=== PATIENT | female | born 1955 | race Caucasian/White ===

== ENCOUNTER 2018-10-04 20:52 | Observation (INO) ==
--- NOTE | 2018-10-04 21:43 | History & Physical Report ---
Date of Service October 04, 2018 Assessment & Plan (1) Perimenopausal menorrhagia: recheck hemoglobin since it has been several hours since her last one was drawn. Present on Admission?: Yes (2) Enlarged uterus: check pelvic ultrasound to assess endometrial lining & uterus for fibroids or polyps.. History of Present Illness Primary Care Provider: NO PCP Patient is a 62 yo white female who presents with a 4 day history of vaginal bleeding that was heavy to start then started to pass golf ball size clots. She was also having cramping when she passed the clots as well. She was seen at [facility] ER but they have no dandy tender or utrasound services after 5pm and even though [facility] was closer, they apparently had no beds and she was sent to [facility] ER. She had a hemoglobin done at [facility] that was 10.9 which was done about 4pm today. . She has had some lightheadedness today & nausea with the cramps. She thinks she went through menopause about 10 years ago but also notes bleeding several times a year since then. usually the bleeds were light but lasted 3 weeks. She has been having these kind of bleeds for several months in the fall but no bleeding since June. 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 had heavy periods with clotting as her usual menses. was on Ortho-novum for the bleeding & cramps. Does not recall ever having an ultrasound for evaluation of her cramps & bleeding. not sexually active for at least 15 years. had chlamydia treated once about 20 years ago. Allergies Allergy/AdvReac Type Severity Reaction Status Date / Time codeine Allergy Tachycardia Verified 10/05/18 00:21 Iodinated Contrast- Oral and Allergy Swelling Verified 10/05/18 00:21 IV Dye of Lip/Tongue/Throat loratadine [From Claritin] Allergy Anaphylaxis Verified 10/05/18 00:21 Patient History Medical History Diabetes Hypertension Social History Feels Safe at Home: Yes Smoking Status: Current every day smoker Review of Systems All systems reviewed & are unremarkable except as noted in HPI & below Physical Exam Vital Signs (Past 24 Hours): Last Vital Signs Temp 37.3 C 10/04/18 21:12 Pulse 101 H 10/04/18 21:12 Resp 16 10/04/18 21:12 BP 186/96 H 10/04/18 21:12 Pulse Ox 95 10/04/18 21:12 Constitutional: WD/WN, vitals as above Respiratory: normal respiratory effort, lungs clear to auscultation Cardiovascular: RRR, no murmur, no edema Gastrointestinal (Abdomen): Inspection/Auscultation: abdomen normal to inspection Percussion/Palpation: + abdomen tender (suprapubic area) and abdomen soft Genitourinary: no vaginal lesions, no adnexal mass normal external appearance Speculum/Bimanual Exam: normal appearance of the cervix, + uterus enlarged (14 weeks size) and + uterus tender
[2018-10-04 22:54] LABS: Basophils # (auto) 0.02 K/uL (0-0.2); Basophils % (auto) 0.1 %; Eosinophils # (auto) 0.05 K/uL (0-0.5); Eosinophils % (auto) 0.2 %; Hematocrit (blood only) 30.4 % (37-47); Immature Granulocytes % (auto) 0.4 %; Lymphocytes # (auto) 1.84 K/uL (1.2-3.4); Lymphocytes % (auto) 8.1 %; Mean Corpuscular Hgb Conc 32.9 g/dL (32-36); Mean Corpuscular Volume 83.5 fL (80-100); Mean Platelet Volume 8.1 fL (7.4-10.4); Monocytes # (auto) 1.71 K/uL (0.11-0.59); Monocytes % (auto) 7.5 %; Neutrophils % (auto) 83.7 %; Platelet Count 641 K/uL (130-400); RDW Coefficient of Variation 14.5 % (11.5-14.5); RDW Standard Deviation 44.6 fL (36.4-46.3); Red Blood Count 3.64 M/uL (4.2-5.4); White Blood Count 22.82 K/uL (4.8-10.8)
[2018-10-04 22:55] LABS: INR 1.2 (0.9-1.1); Partial Thromboplastin Ratio 1.3; Partial Thromboplastin Time 36.2 Seconds (21.0-31.0); Prothrombin Time 11.9 Seconds (9.0-12.0)
[2018-10-04 23:02] LABS: Albumin Level 2.7 gm/dl (3.4-5.0); BUN Creatinine Ratio 15.6 (10-20); Calcium 9.1 mg/dl (8.5-10.1); Creatinine Clr Calc Pharmacy 94.8 ml/min; Est GFR (African American) 112.8; Est GFR (Non-African American) 97.3; Potassium 3.7 mmol/L (3.5-5.1)
[2018-10-04 23:05] LABS: Albumin Globulin Ratio 0.5 (0.9-2); Bilirubin,Total 0.4 mg/dl (0.2-1); Globulin 5.3 gm/dl (2.5-4.0)
[2018-10-05] MEDS ORDERED: ONDANSETRON INJ 2 MG/ML 2 ML VIAL IV STA ×2 (00:43→00:44)
[2018-10-05] MEDS ORDERED: HydrALAZINE HCL 20 MG/ML VIAL IV STA (01:10)
[2018-10-05] MEDS ORDERED: LORazepam 0.5 MG/1 ML VIAL IV STA (01:10)
[2018-10-05] MEDS ORDERED: LORazepam 0.5 MG TAB PO PRN (01:41)
--- NOTE | 2018-10-05 01:43 | Emergency Department Note ---
History of Present Illness General Chief complaint: Vaginal Bleeding Stated complaint: VAG BLEED Source: patient, family, EMS and RN notes reviewed Mode of arrival: EMS Limitations: no limitations History of Present Illness Maximum Pain Intensity: 5 This is a 62-year-old female transferred from [facility] over vaginal bleeding concerns. The patient is here to see Dr. Hanson. Upon arrival to the emergency department patient is hypertensive she has a blood pressure of 189/98. The patient relates that she has a history of anxiety as well as high blood pressure and white coat syndrome. She reports cramping in her uterus area. She was sent for an ultrasound. The patient reports she has not taken any of her medications in the past 2 or 3 days as instructed by her primary care physician. Home Medications Home Medications Medication Instructions Recorded Confirmed Type atorvastatin 10 mg PO DAILY 10/05/18 10/05/18 History cholecalciferol (vitamin D3) 2,000 unit PO DAILY 10/05/18 10/05/18 History [Vitamin D3] hydrochlorothiazide 12.5 mg PO DAILY 10/05/18 10/05/18 History lisinopril 30 mg PO DAILY 10/05/18 10/05/18 History lorazepam 0.5 mg PO TID PRN 10/05/18 10/05/18 History metformin 1,000 mg PO BID 10/05/18 10/05/18 History Allergies Allergy/AdvReac Type Severity Reaction Status Date / Time Iodinated Contrast- Oral and Allergy Severe Swelling Verified 10/05/18 00:53 IV Dye of Lip/Tongue/Throat loratadine [From Claritin] Allergy Severe Anaphylaxis Verified 10/05/18 00:53 codeine Allergy Intermediate Tachycardia Verified 10/05/18 00:53 Past Med/Surg History Medical History Diabetes Hypertension Social History Feels Safe at Home: Yes Smoking Status: Current every day smoker Review of Systems A total of 10 systems reviewed and were otherwise negative Physical Exam Vital Signs Vital Signs - 24 hr 10/04/18 21:12 10/04/18 22:12 10/04/18 22:19 Temperature 37.3 C Temperature Source Oral Sepsis Recent Fever Within 48 Hours No Sepsis New/Unexplained Change in Mental Status No Sepsis Action Taken by Nursing No Action Required Pulse Rate 101 H 100 H Pulse Rate [Apical] Pulse Rate from SpO2 Sensor Pulse Rhythm Regular Pulse Strength Normal Respiratory Rate 16 18 Respiratory Effort / Characteristics Non-Labored Respiratory Depth Normal Respiratory Pattern Regular Blood Pressure 186/96 H 172/96 H Blood Pressure [Right Arm] Blood Pressure Mean 126 121 Blood Pressure Mean [Right Arm] Blood Pressure Position Lying Blood Pressure Position [Right Arm] Pulse Oximetry 95 95 95 Oxygen Delivery Method Room Air Room Air Room Air 10/04/18 23:19 10/05/18 00:02 10/05/18 00:03 Temperature Temperature Source Sepsis Recent Fever Within 48 Hours Sepsis New/Unexplained Change in Mental Status Sepsis Action Taken by Nursing Pulse Rate 96 H 98 H Pulse Rate [Apical] Pulse Rate from SpO2 Sensor 98 H Pulse Rhythm Pulse Strength Respiratory Rate 19 18 Respiratory Effort / Characteristics Respiratory Depth Respiratory Pattern Blood Pressure 172/96 H 159/102 H 159/102 H Blood Pressure [Right Arm] Blood Pressure Mean 121 121 121 Blood Pressure Mean [Right Arm] Blood Pressure Position Blood Pressure Position [Right Arm] Pulse Oximetry 96 94 Oxygen Delivery Method Room Air 10/05/18 00:07 10/05/18 00:08 10/05/18 01:38 Temperature Temperature Source Sepsis Recent Fever Within 48 Hours Sepsis New/Unexplained Change in Mental Status Sepsis Action Taken by Nursing Pulse Rate 99 H 99 H 92 H Pulse Rate [Apical] 99 H Pulse Rate from SpO2 Sensor 100 H 98 H 93 H Pulse Rhythm Pulse Strength Respiratory Rate 19 12 13 Respiratory Effort / Characteristics Respiratory Depth Respiratory Pattern Blood Pressure 179/155 H 189/98 H 184/85 H Blood Pressure [Right Arm] 189/98 H Blood Pressure Mean 163 128 118 Blood Pressure Mean [Right Arm] 128 Blood Pressure Position Blood Pressure Position [Right Arm] Lying Pulse Oximetry 96 93 96 Oxygen Delivery Method Room Air 10/05/18 01:53 10/05/18 02:23 Temperature Temperature Source Sepsis Recent Fever Within 48 Hours Sepsis New/Unexplained Change in Mental Status Sepsis Action Taken by Nursing Pulse Rate 90 90 Pulse Rate [Apical] Pulse Rate from SpO2 Sensor 90 Pulse Rhythm Pulse Strength Respiratory Rate 17 14 Respiratory Effort / Characteristics Respiratory Depth Respiratory Pattern Blood Pressure 187/95 H 187/95 H Blood Pressure [Right Arm] Blood Pressure Mean 125 Blood Pressure Mean [Right Arm] Blood Pressure Position Blood Pressure Position [Right Arm] Pulse Oximetry 97 98 Oxygen Delivery Method Room Air GENERAL: Patient is a healthy-appearing anxious female HEAD: Normocephalic atraumatic EYES: Ocular movements intact pupils equal and react to light OROPHARYNX mucous membranes are moist no exudates present no erythema or edema present NECK: Supple no nuchal rigidity CHEST: Good equal expansion LUNGS: Clear and equal to auscultation CARDIAC: Normal S1 and S2 ABDOMEN: Soft nontender no guarding BACK: No CVA tenderness EXTREMITIES: No pain upon palpation normal muscle strength in all groups no clubbing cyanosis or edema NEURO: Patient is following commands is answering questions appropriately. Alert and oriented x3 Cranial Nerves 2-12 grossly intact Course Administered Medications Discontinued Medications Hydralazine HCl (Hydralazine Hcl) 10 mg IV NOW STA Stop: 10/05/18 01:11 Last Admin: 10/05/18 01:32 Dose: Not Given Documented by: [id number] Lorazepam (Ativan) 0.5 mg in 1 mls @ 1 mls/min IV NOW STA Stop: 10/05/18 01:11 Last Admin: 10/05/18 01:32 Dose: Not Given Documented by: [id number] Ondansetron HCl (Zofran) 4 mg IV NOW STA Stop: 10/05/18 00:44 Last Admin: 10/05/18 00:48 Dose: Not Given Documented by: [id number] Ondansetron HCl (Zofran) 4 mg IV NOW STA Stop: 10/05/18 00:45 Last Admin: 10/05/18 00:48 Dose: 4 mg Documented by: [id number] Medical Decision Making Laboratory Data Result diagrams: 10/04/18 22:15 10/04/18 22:15 Lab Results 10/04/18 10/04/18 10/04/18 Range/Units 22:15 22:15 22:15 WBC 22.82 H (4.8-10.8) K/uL RBC 3.64 L (4.2-5.4) M/uL Hgb 10.0 L (12.0-16.0) g/dL Hct 30.4 L (37-47) % MCV 83.5 (80-100) fL MCH 27.5 (25-34) pg MCHC 32.9 (32-36) g/dL RDW Std Deviation 44.6 (36.4-46.3) fL RDW Coeff of Gracy 14.5 (11.5-14.5) % Plt Count 641 H (130-400) K/uL MPV 8.1 (7.4-10.4) fL Immature Gran % (Auto) 0.4 % Neut % (Auto) 83.7 % Lymph % (Auto) 8.1 % [place] % (Auto) 7.5 % Eos % (Auto) 0.2 % Baso % (Auto) 0.1 % Immature Gran # (Auto) 0.10 H (0.00-0.02) K/uL Neut # (Auto) 19.10 H (1.4-6.5) K/uL Lymph # (Auto) 1.84 (1.2-3.4) K/uL [place] # (Auto) 1.71 H (0.11-0.59) K/uL Eos # (Auto) 0.05 (0-0.5) K/uL Baso # (Auto) 0.02 (0-0.2) K/uL PT 11.9 (9.0-12.0) Seconds INR 1.2 H (0.9-1.1) APTT 36.2 H (21.0-31.0) Seconds PTT Ratio 1.3 Sodium 130 L (136-145) mmol/L Potassium 3.7 (3.5-5.1) mmol/L Chloride 98 (98-107) mmol/L Carbon Dioxide 24 (21-32) mmol/L Anion Gap 8.0 (3-11) BUN 10 (7-18) mg/dl Creatinine 0.62 (0.6-1.2) mg/dl Est Cr Clr Drug Dosing 94.8 ml/min Est GFR ( Amer) 112.8 Est GFR (Non-Af Amer) 97.3 BUN/Creatinine Ratio 15.6 (10-20) Glucose 192 H (70-99) mg/dl Calcium 9.1 (8.5-10.1) mg/dl Total Bilirubin 0.4 (0.2-1) mg/dl AST 7 L (15-37) U/L ALT 13 (12-78) U/L Alkaline Phosphatase 111 (45-117) U/L Total Protein 8.0 (6.4-8.2) gm/dl Albumin 2.7 L (3.4-5.0) gm/dl Globulin 5.3 H (2.5-4.0) gm/dl Albumin/Globulin Ratio 0.5 L (0.9-2) HCG, Quant mIU/ml Blood Type 10/04/18 10/04/18 Range/Units 22:15 22:15 WBC (4.8-10.8) K/uL RBC (4.2-5.4) M/uL Hgb (12.0-16.0) g/dL Hct (37-47) % MCV (80-100) fL MCH (25-34) pg MCHC (32-36) g/dL RDW Std Deviation (36.4-46.3) fL RDW Coeff of Gracy (11.5-14.5) % Plt Count (130-400) K/uL MPV (7.4-10.4) fL Immature Gran % (Auto) % Neut % (Auto) % Lymph % (Auto) % [place] % (Auto) % Eos % (Auto) % Baso % (Auto) % Immature Gran # (Auto) (0.00-0.02) K/uL Neut # (Auto) (1.4-6.5) K/uL Lymph # (Auto) (1.2-3.4) K/uL [place] # (Auto) (0.11-0.59) K/uL Eos # (Auto) (0-0.5) K/uL Baso # (Auto) (0-0.2) K/uL PT (9.0-12.0) Seconds INR (0.9-1.1) APTT (21.0-31.0) Seconds PTT Ratio Sodium (136-145) mmol/L Potassium (3.5-5.1) mmol/L Chloride (98-107) mmol/L Carbon Dioxide (21-32) mmol/L Anion Gap (3-11) BUN (7-18) mg/dl Creatinine (0.6-1.2) mg/dl Est Cr Clr Drug Dosing ml/min Est GFR ( Amer) Est GFR (Non-Af Amer) BUN/Creatinine Ratio (10-20) Glucose (70-99) mg/dl Calcium (8.5-10.1) mg/dl Total Bilirubin (0.2-1) mg/dl AST (15-37) U/L ALT (12-78) U/L Alkaline Phosphatase (45-117) U/L Total Protein (6.4-8.2) gm/dl Albumin (3.4-5.0) gm/dl Globulin (2.5-4.0) gm/dl Albumin/Globulin Ratio (0.9-2) HCG, Quant 3 mIU/ml Blood Type O Positive Imaging Data Radiologist's Impression: Ultrasound shows a thickened endometrial stripe. Blood Pressure Blood Pressure Findings: Elevated blood pressure MDM Narrative This is a 62-year-old female who presents emergency department over concerns of vaginal bleeding. This was assessed by the traffic supervisor electronic die maker Dr. Hanson. The patient is hypertensive and is anxious. I will note her blood pressure has been labile in the emergency department. She has not taken her blood pressure medications in 2 days. The patient was given 1 mg of Ativan here in the emergency department. As the patient is going to the operating room in the morning she was given her normal daily medications at 1 AM. The patient was given her hydrochlorothiazide 12.5 mg, 30 mg of lisinopril. She was also given 1 mg of Ativan. Repeat examination revealed improvement in the patient's symptoms. Impression & Plan Vaginal bleeding, Hypertension, Anxiety Discharge Plan Visit Data Chief Complaint: Vaginal Bleeding Stated Complaint: VAG BLEED ED Provider: Benjy Echevarria Discharge Problem: Vaginal bleeding, Hypertension, Anxiety Patient Disposition: Admitted As Inpatient Discharge Instructions Interventions: ED Discharge Assessment Last Done: 10/05/18 02:23 Forms Stand Alone Forms: Whatever Prescriptions Prescriptions: No Action atorvastatin 10 mg Tablet 10 mg PO DAILY RF: 0 lorazepam 0.5 mg Tablet 0.5 mg PO TID PRN (Reason: Anxiety) RF: 0 metformin 1,000 mg Tablet 1,000 mg PO BID RF: 0 hydrochlorothiazide 12.5 mg Capsule 12.5 mg PO DAILY RF: 0 lisinopril 30 mg Tablet 30 mg PO DAILY RF: 0 cholecalciferol (vitamin D3) [Vitamin D3] 1,000 unit Capsule 2,000 unit PO DAILY RF: 0 Referrals Referrals: PCP,NO [Primary Care Provider] - Discharge Problem: Hypertension Qualifiers: Hypertension type: unspecified Qualified Code(s): I10 - Essential (primary) hypertension
--- NOTE | 2018-10-05 01:58 | Gynecologic Progress Note ---
Date of Service October 05, 2018 Assessment & Plan (1) Perimenopausal menorrhagia: Because the thickened lining may represent a degenerating fibroid or polyp, I will have the patient admitted under observation to have hysteroscopy, D&C, polypectomy or myomectomy with Myosure would be the ideal way to stop the bleeding & remove the tissue more effectively then a blind D&C done after 2am. Patient is agreeable to waiting until the morning when the OR staff would be available to do the hysteroscopy & possible Myosure. The procedure & it's risks were reviewed with the patient & her family and all of their questions were answered. Her elevated blood pressure will be addressed by the ER staff prior to transfer to the 4th floor until the procedure can be done in the AM. Present on Admission?: Yes (2) Enlarged uterus: Subjective still having abdominal cramping & passing smaller clots & blood now. BP is elevated as she has not taken her BP meds yesterday. ER staff will address this issue. ultrasound report shows 3.5cm endometrial lining which is concerning in a perimenopausal-menopausal female. Especially with hypertension & diabetes. Physical Exam Vital Signs (Past 24 Hours): Last Vital Signs Temp 37.3 C 10/04/18 21:12 Pulse 99 H 10/05/18 00:07 Resp 18 10/05/18 00:07 BP 189/98 H 10/05/18 00:07 Pulse Ox 94 10/05/18 00:07
[2018-10-05] MEDS: LACTATED RINGER'S 1,000 ML IV SCH ×2 (02:50→10:14)
[2018-10-05 03:03] LABS: Appearance Urine Clear (Clear); Bacteria Urine Automated Negative (Negative); Bilirubin Urine Negative (Negative); Blood Urine 2+ (Negative); Color Urine Yellow; Glucose Urine UA Negative (Negative); Ketones Urine Trace (Negative); Leukocyte Esterase Urine Negative (Negative); Nitrite Urine Negative (Negative); Protein Urine Negative (Negative); RBC Urine Automated >30 /hpf (0-4); Specific Gravity Urine 1.013 (1.000-1.030); Urobilinogen Urine Negative (Negative); pH Urine 6.5 (4.5-7.5)
--- NOTE | 2018-10-05 04:21 | Anesthesiology Consultation ---
Date of Service October 05, 2018 Assessment & Plan Chart Review Chart Review: Acceptable Risk for Surgery and Patient NOT seen in Pre Admission Testing Consults Requested none History Height/Weight Height: 5 ft 3 in Weight: 79 kg Allergies Allergy/AdvReac Type Severity Reaction Status Date / Time Iodinated Contrast- Oral and Allergy Severe Swelling Verified 10/05/18 00:53 IV Dye of Lip/Tongue/Throat loratadine [From Claritin] Allergy Severe Anaphylaxis Verified 10/05/18 00:53 codeine Allergy Intermediate Tachycardia Verified 10/05/18 00:53 Medications Home Medications Medication Instructions Recorded Confirmed Last Taken atorvastatin 10 mg PO DAILY 10/05/18 10/05/18 10/03/18 cholecalciferol (vitamin D3) 2,000 unit PO DAILY 10/05/18 10/05/18 10/03/18 [Vitamin D3] hydrochlorothiazide 12.5 mg PO DAILY 10/05/18 10/05/18 10/03/18 lisinopril 30 mg PO DAILY 10/05/18 10/05/18 10/03/18 lorazepam 0.5 mg PO TID PRN 10/05/18 10/05/18 Unknown metformin 1,000 mg PO BID 10/05/18 10/05/18 10/03/18 Active Medications Generic Name Dose Route Start Last Admin Trade Name Freq PRN Reason Stop Dose Admin Lactated Ringer's 1,000 mls @ 125 mls/hr 10/05/18 01:45 10/05/18 02:50 Lr IV 11/04/18 01:44 125 mls/hr .Q8H JENNIFER Administration Past Medical History Medical History Diabetes Hypertension Social History Smoking Status: Current every day smoker tobacco type: cigarettes Smoking cigarettes per day: 20 Do You Dip or Chew Tobacco: No Hx Alcohol Use: Yes Alcohol type: wine alcohol intake frequency: a few times a month Hx Substance Use: Yes (past) substance use type: marijuana Last Used Substance: Unknown Last Used Substance Other:: "back in the day when i was [age]" Physical Exam Vital Signs Last Vital Signs Temp 37.2 C 10/05/18 02:50 Pulse 98 H 10/05/18 02:50 Resp 16 10/05/18 02:50 BP 176/76 H 10/05/18 02:50 Pulse Ox 95 10/05/18 02:50 Testing Electrocardiogram Date: 10/05/18 Findings: + NSR @ low voltage QRS, cannot rule out anteroseptal infarct Laboratory Results 10/04/18 22:15 10/04/18 22:15 Blood Type O Positive 10/04/18 22:15 PT 11.9 Seconds (9.0-12.0) 10/04/18 22:15 INR 1.2 (0.9-1.1) H 10/04/18 22:15 APTT 36.2 Seconds (21.0-31.0) H 10/04/18 22:15 HCG, Quant 3 mIU/ml 10/04/18 22:15 Urine Color Yellow 10/05/18 02:30 Urine Appearance Clear (Clear) 10/05/18 02:30 Urine pH 6.5 (4.5-7.5) 10/05/18 02:30 Ur Specific [place] 1.013 (1.000-1.030) 10/05/18 02:30 Urine Protein Negative (Negative) 10/05/18 02:30 Urine Glucose (UA) Negative (Negative) 10/05/18 02:30 Urine Ketones Trace (Negative) H 10/05/18 02:30 Urine Nitrite Negative (Negative) 10/05/18 02:30 Ur Leukocyte Esterase Negative (Negative) 10/05/18 02:30 Urine WBC (Auto) 5-10 /hpf (0-5) H 10/05/18 02:30 Urine RBC (Auto) >30 /hpf (0-4) H 10/05/18 02:30 U Hyaline Cast (Auto) 1-5 /lpf (0-5) 10/05/18 02:30 U Epithel Cells (Auto) 10-20 /lpf (0-5) H 10/05/18 02:30 Urine Bacteria (Auto) Negative (Negative) 10/05/18 02:30 10/04/18 22:15 HCG, Quant 3
[2018-10-05 08:26] LABS: Basophils # (auto) 0.01 K/uL (0-0.2); Eosinophils # (auto) 0.35 K/uL (0-0.5); Eosinophils % (auto) 1.7 %; Hematocrit (blood only) 28.3 % (37-47); Hemoglobin 9.7 g/dL (12.0-16.0); Immature Granulocytes # (auto) 0.11 K/uL (0.00-0.02); Immature Granulocytes % (auto) 0.5 %; Lymphocytes # (auto) 2.44 K/uL (1.2-3.4); Lymphocytes % (auto) 11.8 %; Mean Corpuscular Hgb Conc 34.3 g/dL (32-36); Mean Corpuscular Volume 83.5 fL (80-100); Mean Platelet Volume 7.9 fL (7.4-10.4); Monocytes # (auto) 1.23 K/uL (0.11-0.59); Monocytes % (auto) 5.9 %; Neutrophils # (auto) 16.56 K/uL (1.4-6.5); Neutrophils % (auto) 80.1 %; Platelet Count 523 K/uL (130-400); RDW Coefficient of Variation 14.8 % (11.5-14.5); RDW Standard Deviation 45.2 fL (36.4-46.3); Red Blood Count 3.39 M/uL (4.2-5.4)
--- NOTE | 2018-10-05 08:33 | Gynecologic Progress Note ---
Date of Service October 05, 2018 Assessment & Plan (1) Enlarged uterus: (2) Vaginal bleeding: Hgb this am is 9.7. WBC count is now 20,000. etiology unknown as she is afebrile.plan to do hysteroscopy, D&C, possible polypectomy/ removal of endometrial mass this AM. will discuss with Dr. Cuello Subjective was able to rest overnight . she did have some sips of water overnight as well. bleeding is still moderate with only one small clot this morning when she got up to urinate. still some lightheadedness but able to walk to the bathroom. Review of Systems All systems reviewed & are unremarkable except as noted in HPI & below Physical Exam Vital Signs (Past 24 Hours): Last Vital Signs Temp 37.2 C 10/05/18 02:50 Pulse 98 H 10/05/18 02:50 Resp 16 10/05/18 02:50 BP 176/76 H 10/05/18 02:50 Pulse Ox 95 10/05/18 02:50 Constitutional: WD/WN, vitals as above Gastrointestinal (Abdomen): Percussion/Palpation: + abdomen tender (suprapubic area) and abdomen soft
[2018-10-05 08:59] LABS: Potassium 3.9 mmol/L (3.5-5.1)
[2018-10-05] MEDS ORDERED: hydroCHLOROthiazide 25 MG TAB PO SCH (09:00)
[2018-10-05] MEDS ORDERED: LISINOPRIL 10 MG TAB PO SCH (09:00)
--- NOTE | 2018-10-05 09:37 | Gynecologic Progress Note ---
Date of Service October 05, 2018 Patient signout from my colleague this morning patient was admitted last night with severe menorrhagia transferred from another facility. 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 She states she went a number of years without bleeding and then started having bleeding in the last year but did not seek medical consultation for this. The patient is also hypertensive and diabetic Currently her bleeding is much less she was passing clots last night however at this time she is bleeding only minimal and it is darker blood. Ultrasound was performed last night however images are not available in the system there apparently is a problem with the computer system I discussed with radiology and we will re-do the ultrasound as we need these images to know what is going on with the lining and whether there is an endometrial mass I discussed this in depth with the patient I discussed potential options for treatment as well including medications hysteroscopy D&C and potential hyst erectomy Physical Exam Vital Signs (Past 24 Hours): Last Vital Signs Temp 37.2 C 10/05/18 02:50 Pulse 98 H 10/05/18 02:50 Resp 16 10/05/18 02:50 BP 176/76 H 10/05/18 02:50 Pulse Ox 95 10/05/18 02:50
--- NOTE | 2018-10-05 10:19 | Ultrasound Report ---
US pelvic complete CLINICAL HISTORY: enlarged uterus, menorrhagia COMPARISON STUDY: None FINDINGS: The uterus measured 11.7 cm. The endometrial stripe measured abnormal thickening at 3.5 cm. The right ovary measured 2.5 cm normal vascular flow. The left ovary measured not well seen possibly due to atrophic change. There is no ultrasonographic evidence of ovarian torsion. It should be noted that ovarian torsion can be present with normal Doppler ultrasonographic findings. There was no evidence of pathologic free pelvic fluid. IMPRESSION: 1. Abnormal endometrial thickening at 3.5 cm.. 2. An endometrial neoplastic process must be considered. The above report was generated using voice recognition software. It may contain grammatical, syntax or spelling errors. Electronically signed by: Bobby Leigh M.D. 10/05/2018 10:17 AM
--- NOTE | 2018-10-05 10:30 | Gynecologic Progress Note ---
Date of Service October 05, 2018 Reviewed U/S with Dr. Leigh. No obvious mass in endometrium, however 3cm+ thick. Since there is no obvious mass in her bleeding currently is improving I recommend an Aygestin taper. If there was a defined mass I think D&C hysteroscopy with resection would be appropriate. I do not think this is a necessary step as we can arrange for stabilizing her bleeding now which is already improving and then follow-up next week in the office with myself for Pap smear and endometrial biopsy. I did think about endometrial biopsy today h owever do not want to stir up bleeding as it is improving at this current time discussed risks of progesterone therapy discussed follow-up in 1 to call Physical Exam Vital Signs (Past 24 Hours): Last Vital Signs Temp 37.2 C 10/05/18 02:50 Pulse 98 H 10/05/18 02:50 Resp 16 10/05/18 02:50 BP 176/76 H 10/05/18 02:50 Pulse Ox 95 10/05/18 02:50
[2018-10-05] MEDS: NORETHINDRONE 5 MG TAB PO SCH ×2 (12:29→14:07)
--- NOTE | 2018-10-05 12:30 | Gynecologic Progress Note ---
Date of Service October 05, 2018 Reviewed plan again with patient the plan is for me to see her in the office next week she will be given an Aygestin taper if bleeding worsens she will contact us sooner or return to the hospital plan for outpatient Pap and endometrial biopsy and will discuss possible definitive treatment at that time Physical Exam Vital Signs (Past 24 Hours): Last Vital Signs Temp 37.2 C 10/05/18 02:50 Pulse 98 H 10/05/18 02:50 Resp 16 10/05/18 02:50 BP 176/76 H 10/05/18 02:50 Pulse Ox 95 10/05/18 02:50
--- NOTE | 2018-10-06 08:58 | Discharge Summary ---
Date of Service October 13, 2018 Discharge Data Consultations 10/05/18 01:11 ED Decision to Admit Stat 10/05/18 09:29 Consult Hospitalist Routine Procedures Performed Operation Date: 10/05/18 07:40 <No data on this case meets the specified criteria>
--- NOTE | 2018-10-06 08:58 | Hospitalist Consultation ---
Date of Consultation October 13, 2018 History of Present Illness Attending Physician: Jacki Powers MD, FACOG Allergies Allergy/AdvReac Type Severity Reaction Status Date / Time Iodinated Contrast- Oral and Allergy Severe Swelling Verified 10/05/18 00:53 IV Dye of Lip/Tongue/Throat loratadine [From Claritin] Allergy Severe Anaphylaxis Verified 10/05/18 00:53 codeine Allergy Intermediate Tachycardia Verified 10/05/18 00:53 Home Medications Home Medications Medication Instructions Recorded Confirmed Type atorvastatin 10 mg PO DAILY 10/05/18 10/05/18 History cholecalciferol (vitamin D3) 2,000 unit PO DAILY 10/05/18 10/05/18 History [Vitamin D3] hydrochlorothiazide 12.5 mg PO DAILY 10/05/18 10/05/18 History lisinopril 30 mg PO DAILY 10/05/18 10/05/18 History lorazepam 0.5 mg PO TID PRN 10/05/18 10/05/18 History metformin 1,000 mg PO BID 10/05/18 10/05/18 History Patient History Medical History Diabetes Hypertension Social History Preferred Language: Nicaraguan Beliefs That Will Affect Care: None Current Living Situation: Family Current Living Situation Comment: son lives with patient. fiance lives next door Other Information That Helps Us Care for You: No Feels Safe at Home: Yes Safety Concerns: Feels Safe At This Time Smoking Status: Current every day smoker Hx Alcohol Use: Yes Hx Substance Use: Yes (past) Physical Exam Vital Signs (Past 24 Hours): Last Vital Signs Temp 37 C 10/05/18 14:18 Pulse 99 H 10/05/18 14:18 Resp 20 10/05/18 14:18 BP 115/71 10/05/18 14:18 Pulse Ox 98 10/05/18 14:18
--- NOTE | 2018-10-11 10:16 | History & Physical Bridge Note ---
Date of Service October 11, 2018 total hysterectomy, possible bilateral salpino-oophorectomy, cystoscopy History & Physical Bridge Note I have examined the patient, reviewed the History & Physical and in the interval since the performance of the History & Physical I have noted the following changes of clinical significance: no changes noted
--- NOTE | 2018-10-11 10:18 | Discharge Summary ---
Date of Service October 20, 2018 Discharge Data Consultations 10/05/18 01:11 ED Decision to Admit Stat 10/05/18 09:29 Consult Hospitalist Routine Procedures Performed Operation Date: 10/05/18 07:40 <No data on this case meets the specified criteria>
--- NOTE | 2018-10-19 05:17 | Discharge Summary ---
PRINCIPAL DIAGNOSES: Menorrhagia, thickened endometrium and enlarged uterus. HISTORY OF PRESENT ILLNESS AND HOSPITAL COURSE: The patient is a 62-year-old 2, para 2-0-0-2, white female who presented to [facility] Emergency Room after 4 days of heavy bleeding and then passing golf ball size clots. They had no force dispatcher on staff and [facility] had no "beds." She was transferred to [facility] ER where I evaluated her. Her bleeding was moderate at that time. Hemoglobin done at [facility] which was about 4-5 hours prior to her arrival in the Emergency Room was 10.9. She was lightheaded and had nausea with her cramping. She claims she went to menopause about 10 years ago, but has been having bleeding episodes several times a year since then, has not seen a force dispatcher over 10 years. On exam, her uterus is enlarged and bulky, approximately 14 weeks in size and lining was thickened on ultrasound. Her hemoglobin had dropped from 10.0 to 9.7 during her stay. Bleeding did not get significantly heavier. Her care was then transferred to Dr. Cuello who was coming on-call. A hysteroscopy, possible polypectomy and D and C were discussed with the patient. Dr. Cuello talked to her as well with other options including an Aygestin taper and performing the D and C and hysteroscopy at a later date. The patient agreed to that plan and will follow up with Dr. Cuello in the office approximately 1 week after this admission. Of note, her white count was 22,000 on her arrival in the Emergency Room here at [facility] and was 20,000 prior to leaving the hospital at approximately 0800 hours on October 05. Platelet count was also elevated at 641,000 on her arrival amount in the Emergency Room and dropped to 523,000 by 8:00 a.m. on October 05. She is to call for any increased bleeding, particularly clotting prior to her next appointment. She is to take iron 1 tablet daily as well to bring up her hemoglobin.
== END 2018-10-05 14:25 | disposition home or self-care (01) ==
LOC: ED 20:52 → 4N 20:52

== ENCOUNTER 2018-10-26 11:46 | Inpatient (IN) ==
[2018-10-26 13:02] LABS: Hematocrit (blood only) 22.7 % (37-47); Mean Corpuscular Hgb Conc 30.8 g/dL (32-36); Mean Corpuscular Volume 82.5 fL (80-100); Mean Platelet Volume 7.4 fL (7.4-10.4); Platelet Count 749 K/uL (130-400); RDW Coefficient of Variation 16.3 % (11.5-14.5); RDW Standard Deviation 48.9 fL (36.4-46.3); Red Blood Count 2.75 M/uL (4.2-5.4); White Blood Count 13.05 K/uL (4.8-10.8)
[2018-10-26 13:18] LABS: Albumin Level 2.7 gm/dl (3.4-5.0); BUN Creatinine Ratio 18.3 (10-20); Creatinine Clr Calc Pharmacy 68.4 ml/min; Est GFR (African American) 86.9; Potassium 3.6 mmol/L (3.5-5.1)
[2018-10-26 13:21] LABS: Albumin Globulin Ratio 0.5 (0.9-2); Bilirubin,Total 0.2 mg/dl (0.2-1); Globulin 5.2 gm/dl (2.5-4.0); Total Protein 7.9 gm/dl (6.4-8.2)
[2018-10-26 13:24] LABS: Basophils # (auto) 0.01 K/uL (0-0.2); Basophils % (auto) 0.1 %; Eosinophils # (auto) 0.26 K/uL (0-0.5); Immature Granulocytes # (auto) 0.06 K/uL (0.00-0.02); Immature Granulocytes % (auto) 0.5 %; Lymphocytes # (auto) 2.21 K/uL (1.2-3.4); Lymphocytes % (auto) 16.9 %; Monocytes # (auto) 0.88 K/uL (0.11-0.59); Monocytes % (auto) 6.7 %; Neutrophils # (auto) 9.63 K/uL (1.4-6.5); Neutrophils % (auto) 73.8 %; Polychromasia 1+
[2018-10-26] MEDS ORDERED: SODIUM CHLORIDE 0.9% 250 ML IV PRN ×2 (13:44→18:07)
--- NOTE | 2018-10-26 13:54 | Emergency Department Note ---
History of Present Illness General Chief complaint: Vaginal Bleeding Stated complaint: BLEEDING, VAGINAL WEAKNESS Time Seen by Provider: 10/26/18 12:04 History of Present Illness Maximum Pain Intensity: 0 This patient is a 62-year-old female presents to the emergency department complaining of intermittent heavy vaginal bleeding for the last month. The patient follows with acndace Diaz RN RESEARCH. She has had an ultrasound, which showed a large fibroid. She is scheduled for surgery at the beginning of next month. The patient reports that she was taking Aygestin last week. Her last dose was 5 days ago. That temporarily did help with the bleeding. She denies any significant abdominal pain or cramping. She is going through 1 pad every 45 minutes. She reports passing a few blood clots the size of her hand. She feels fatigued. She denies any chest pain or shortness of breath. Home Medications Home Medications Medication Instructions Recorded Confirmed Type atorvastatin 10 mg PO HS 10/05/18 10/26/18 History cholecalciferol (vitamin D3) 1,000 unit PO BID 10/05/18 10/26/18 History [Vitamin D3] hydrochlorothiazide 12.5 mg PO QAM 10/05/18 10/26/18 History lisinopril 30 mg PO QAM 10/05/18 10/26/18 History lorazepam 0.5 mg PO BID 10/05/18 10/26/18 History metformin 1,000 mg PO BID 10/05/18 10/26/18 History docusate sodium [Colace] 100 mg PO DAILY PRN 10/25/18 10/26/18 History ibuprofen [Motrin IB] 200 mg PO QID PRN 10/25/18 10/26/18 History ibuprofen 600 mg PO Q6H PRN 10/26/18 10/26/18 History norethindrone acetate 5 mg PO UD 30 Days #90 tab 10/26/18 Rx Allergies Allergy/AdvReac Type Severity Reaction Status Date / Time Iodinated Contrast- Oral and Allergy Severe Swelling Verified 10/26/18 14:06 IV Dye of Lip/Tongue/Throat loratadine [From Claritin] Allergy Severe Anaphylaxis Verified 10/26/18 14:06 codeine Allergy Intermediate Tachycardia Verified 10/26/18 14:06 adhesive AdvReac Hives Verified 10/26/18 18:08 Past Med/Surg History Medical History Anxiety Diabetes mellitus, type 2 NIDDM History of kidney stones Hyperlipidemia Hypertension Vaginal bleeding Surgical History History of anesthesia reaction SLOW TO WAKE; AGGRESSIVE BEHAVIOR History of cystoscopy History of esophagogastroduodenoscopy (EGD) History of lithotripsy History of tubal ligation Family History Aunt Family history of diabetes mellitus Grandmother (Maternal) Family history of diabetes mellitus Social History Preferred Language: Ethiopian Beliefs That Will Affect Care: Yazdanism Current Living Situation: Family Current Living Situation Comment: SON LIVES W/ PT Other Information That Helps Us Care for You: No Feels Safe at Home: Yes Safety Concerns: Feels Safe At This Time Smoking Status: Current every day smoker Hx Alcohol Use: No Hx Substance Use: No Review of Systems A total of 10 systems reviewed and were otherwise negative Physical Exam Vital Signs Vital Signs - 24 hr 10/26/18 11:48 10/26/18 13:16 10/26/18 15:15 Temperature 36.7 C Temperature Source Oral Sepsis Recent Fever Within 48 Hours No Sepsis New/Unexplained Change in Mental Status No Sepsis Action Taken by Nursing No Action Required Pulse Rate 115 H 100 H Pulse Rate [Brachial] Pulse Rate [Left Finger] 98 H Pulse Rate from SpO2 Sensor 99 H Pulse Rhythm Pulse Strength Respiratory Rate 18 18 21 Respiratory Effort / Characteristics Non-Labored Spontaneous Respiratory Depth Normal Normal Respiratory Pattern Regular Blood Pressure 155/68 H 124/56 L Blood Pressure [Right Arm] Blood Pressure Mean 97 78 Blood Pressure Mean [Right Arm] Blood Pressure Position Sitting Blood Pressure Position [Right Arm] Pulse Oximetry 100 97 97 Oxygen Delivery Method Room Air Room Air 10/26/18 15:18 10/26/18 15:31 10/26/18 15:32 Temperature 37.1 C Temperature Source Oral Sepsis Recent Fever Within 48 Hours Sepsis New/Unexplained Change in Mental Status Sepsis Action Taken by Nursing Pulse Rate 95 H 108 H 95 H Pulse Rate [Brachial] Pulse Rate [Left Finger] Pulse Rate from SpO2 Sensor 95 H 95 H Pulse Rhythm Regular Pulse Strength Normal Respiratory Rate 23 21 18 Respiratory Effort / Characteristics Respiratory Depth Respiratory Pattern Blood Pressure 155/69 H Blood Pressure [Right Arm] Blood Pressure Mean 97 Blood Pressure Mean [Right Arm] Blood Pressure Position Lying Blood Pressure Position [Right Arm] Pulse Oximetry 96 97 Oxygen Delivery Method 10/26/18 15:46 10/26/18 15:47 10/26/18 16:00 Temperature 37.0 C Temperature Source Oral Sepsis Recent Fever Within 48 Hours Sepsis New/Unexplained Change in Mental Status Sepsis Action Taken by Nursing Pulse Rate 88 91 H 92 H Pulse Rate [Brachial] Pulse Rate [Left Finger] Pulse Rate from SpO2 Sensor 89 90 Pulse Rhythm Pulse Strength Respiratory Rate 24 15 25 H Respiratory Effort / Characteristics Respiratory Depth Respiratory Pattern Blood Pressure 125/62 125/62 Blood Pressure [Right Arm] Blood Pressure Mean 83 83 Blood Pressure Mean [Right Arm] Blood Pressure Position Sitting Blood Pressure Position [Right Arm] Pulse Oximetry 94 97 96 Oxygen Delivery Method 10/26/18 16:01 10/26/18 16:02 10/26/18 16:14 Temperature 36.9 C Temperature Source Oral Sepsis Recent Fever Within 48 Hours Sepsis New/Unexplained Change in Mental Status Sepsis Action Taken by Nursing Pulse Rate 90 87 88 Pulse Rate [Brachial] Pulse Rate [Left Finger] Pulse Rate from SpO2 Sensor 90 88 Pulse Rhythm Pulse Strength Respiratory Rate 30 H 26 H 26 H Respiratory Effort / Characteristics Respiratory Depth Respiratory Pattern Blood Pressure 135/62 128/61 128/61 Blood Pressure [Right Arm] Blood Pressure Mean 86 83 83 Blood Pressure Mean [Right Arm] Blood Pressure Position Blood Pressure Position [Right Arm] Pulse Oximetry 95 95 94 Oxygen Delivery Method 10/26/18 16:17 10/26/18 16:24 10/26/18 16:40 Temperature 37.0 C Temperature Source Oral Sepsis Recent Fever Within 48 Hours Sepsis New/Unexplained Change in Mental Status Sepsis Action Taken by Nursing Pulse Rate 89 87 Pulse Rate [Brachial] Pulse Rate [Left Finger] Pulse Rate from SpO2 Sensor 88 Pulse Rhythm Pulse Strength Respiratory Rate 24 27 H Respiratory Effort / Characteristics Non-Labored Spontaneous Respiratory Depth Normal Respiratory Pattern Regular Blood Pressure 138/65 138/65 Blood Pressure [Right Arm] Blood Pressure Mean 89 89 Blood Pressure Mean [Right Arm] Blood Pressure Position Blood Pressure Position [Right Arm] Pulse Oximetry 97 95 Oxygen Delivery Method Room Air 10/26/18 17:10 10/26/18 17:22 10/26/18 17:40 Temperature 36.7 C 37.1 C 37.1 C Temperature Source Oral Oral Oral Sepsis Recent Fever Within 48 Hours Sepsis New/Unexplained Change in Mental Status Sepsis Action Taken by Nursing Pulse Rate 84 88 Pulse Rate [Brachial] 86 Pulse Rate [Left Finger] Pulse Rate from SpO2 Sensor Pulse Rhythm Pulse Strength Respiratory Rate 18 18 20 Respiratory Effort / Characteristics Non-Labored Respiratory Depth Normal Respiratory Pattern Regular Blood Pressure 113/63 130/63 Blood Pressure [Right Arm] 124/65 Blood Pressure Mean 79 85 Blood Pressure Mean [Right Arm] 84 Blood Pressure Position Blood Pressure Position [Right Arm] Semi-fowlers Pulse Oximetry 97 Oxygen Delivery Method Room Air 10/26/18 18:34 10/26/18 19:10 10/26/18 19:25 Temperature 32.7 C L 37.4 C 36.8 C Temperature Source Oral Oral Oral Sepsis Recent Fever Within 48 Hours Sepsis New/Unexplained Change in Mental Status Sepsis Action Taken by Nursing Pulse Rate 91 H 91 H 91 H Pulse Rate [Brachial] Pulse Rate [Left Finger] Pulse Rate from SpO2 Sensor Pulse Rhythm Regular Regular Pulse Strength Normal Normal Respiratory Rate 18 18 18 Respiratory Effort / Characteristics Respiratory Depth Respiratory Pattern Blood Pressure 138/59 L 121/62 123/63 Blood Pressure [Right Arm] Blood Pressure Mean 85 81 83 Blood Pressure Mean [Right Arm] Blood Pressure Position Sitting Sitting Blood Pressure Position [Right Arm] Pulse Oximetry 97 97 98 Oxygen Delivery Method 10/26/18 19:55 10/26/18 20:25 10/26/18 20:33 Temperature 37.0 C 36.8 C 37.0 C Temperature Source Oral Oral Sepsis Recent Fever Within 48 Hours Sepsis New/Unexplained Change in Mental Status Sepsis Action Taken by Nursing Pulse Rate 90 87 Pulse Rate [Brachial] 86 Pulse Rate [Left Finger] 98 H Pulse Rate from SpO2 Sensor Pulse Rhythm Regular Regular Pulse Strength Normal Normal Respiratory Rate 18 18 18 Respiratory Effort / Characteristics Respiratory Depth Respiratory Pattern Blood Pressure 117/55 L 131/66 Blood Pressure [Right Arm] 124/65 Blood Pressure Mean 75 87 Blood Pressure Mean [Right Arm] Blood Pressure Position Sitting Lying Blood Pressure Position [Right Arm] Pulse Oximetry 97 99 97 Oxygen Delivery Method Constitutional WD/WN, vitals as above Eyes EOM intact bilaterally ENMT external ear and nose normal, oropharynx normal Neck trachea midline Respiratory normal respiratory effort, lungs clear to auscultation Cardiovascular Rate/Rhythm: regular rate, regular rhythm and + tachycardic Gastrointestinal (Abdomen) normal bowel sounds, soft, nontender, no hepatosplenomegaly Musculoskeletal no cyanosis or clubbing, extremities motor strength 5/5 Skin no rashes, warm and dry Neurologic Alert and oriented x3. No focal motor deficits. Psychiatric Acting appropriately Course Patient was seen and examined Vital signs including blood pressure were reviewed medications list was verified with patient Labs were obtained, and a saline lock was established The patient was ordered 2 units of packed RBCs Blood transfusion consent performed The case was discussed with RN RESEARCH quality control lab tech. They kindly agreed to evaluate the patient for possible inpatient management. The patient was updated at the bedside. All questions were answered. She was in agreement with admission. Administered Medications Metformin HCl (Glucophage) 1,000 mg PO BIDM [facility] Stop: 11/25/18 17:29 Last Admin: 10/26/18 18:37 Dose: 1,000 mg Documented by: [id number] Discontinued Medications Norethindrone (Aygestin) 20 mg PO ONE STA Stop: 10/26/18 15:00 Last Admin: 10/26/18 15:40 Dose: 20 mg Documented by: [id number] Medical Decision Making Laboratory Data Result diagrams: 10/26/18 12:49 10/26/18 12:49 Lab Results 10/26/18 10/26/18 10/26/18 Range/Units 12:49 12:49 12:49 WBC 13.05 H (4.8-10.8) K/uL RBC 2.75 L (4.2-5.4) M/uL Hgb 7.0 L (12.0-16.0) g/dL Hct 22.7 L (37-47) % MCV 82.5 (80-100) fL MCH 25.5 (25-34) pg MCHC 30.8 L (32-36) g/dL RDW Std Deviation 48.9 H (36.4-46.3) fL RDW Coeff of Gracy 16.3 H (11.5-14.5) % Plt Count 749 H (130-400) K/uL MPV 7.4 (7.4-10.4) fL Immature Gran % (Auto) 0.5 % Neut % (Auto) 73.8 % Lymph % (Auto) 16.9 % [place] % (Auto) 6.7 % Eos % (Auto) 2.0 % Baso % (Auto) 0.1 % Immature Gran # (Auto) 0.06 H (0.00-0.02) K/uL Neut # (Auto) 9.63 H (1.4-6.5) K/uL Lymph # (Auto) 2.21 (1.2-3.4) K/uL [place] # (Auto) 0.88 H (0.11-0.59) K/uL Eos # (Auto) 0.26 (0-0.5) K/uL Baso # (Auto) 0.01 (0-0.2) K/uL Polychromasia 1+ PT Cancelled INR Cancelled Sodium 136 (136-145) mmol/L Potassium 3.6 (3.5-5.1) mmol/L Chloride 102 (98-107) mmol/L Carbon Dioxide 24 (21-32) mmol/L Anion Gap 10.0 (3-11) BUN 15 (7-18) mg/dl Creatinine 0.84 (0.6-1.2) mg/dl Est Cr Clr Drug Dosing 68.4 ml/min Est GFR ( Amer) 86.9 Est GFR (Non-Af Amer) 75.0 BUN/Creatinine Ratio 18.3 (10-20) Glucose 174 H (70-99) mg/dl POC Glucose (70-99) Calcium 9.0 (8.5-10.1) mg/dl Total Bilirubin 0.2 (0.2-1) mg/dl AST 9 L (15-37) U/L ALT 16 (12-78) U/L Alkaline Phosphatase 79 (45-117) U/L Total Protein 7.9 (6.4-8.2) gm/dl Albumin 2.7 L (3.4-5.0) gm/dl Globulin 5.2 H (2.5-4.0) gm/dl Albumin/Globulin Ratio 0.5 L (0.9-2) Blood Type Antibody Screen Crossmatch 10/26/18 10/26/18 10/26/18 Range/Units 13:53 14:09 16:56 WBC (4.8-10.8) K/uL RBC (4.2-5.4) M/uL Hgb (12.0-16.0) g/dL Hct (37-47) % MCV (80-100) fL MCH (25-34) pg MCHC (32-36) g/dL RDW Std Deviation (36.4-46.3) fL RDW Coeff of Gracy (11.5-14.5) % Plt Count (130-400) K/uL MPV (7.4-10.4) fL Immature Gran % (Auto) % Neut % (Auto) % Lymph % (Auto) % [place] % (Auto) % Eos % (Auto) % Baso % (Auto) % Immature Gran # (Auto) (0.00-0.02) K/uL Neut # (Auto) (1.4-6.5) K/uL Lymph # (Auto) (1.2-3.4) K/uL [place] # (Auto) (0.11-0.59) K/uL Eos # (Auto) (0-0.5) K/uL Baso # (Auto) (0-0.2) K/uL Polychromasia PT 11.4 INR 1.1 Sodium (136-145) mmol/L Potassium (3.5-5.1) mmol/L Chloride (98-107) mmol/L Carbon Dioxide (21-32) mmol/L Anion Gap (3-11) BUN (7-18) mg/dl Creatinine (0.6-1.2) mg/dl Est Cr Clr Drug Dosing ml/min Est GFR ( Amer) Est GFR (Non-Af Amer) BUN/Creatinine Ratio (10-20) Glucose (70-99) mg/dl POC Glucose 126 H (70-99) Calcium (8.5-10.1) mg/dl Total Bilirubin (0.2-1) mg/dl AST (15-37) U/L ALT (12-78) U/L Alkaline Phosphatase (45-117) U/L Total Protein (6.4-8.2) gm/dl Albumin (3.4-5.0) gm/dl Globulin (2.5-4.0) gm/dl Albumin/Globulin Ratio (0.9-2) Blood Type O Positive Antibody Screen NEGATIVE Crossmatch See Detail Blood Pressure Blood Pressure Findings: Elevated blood pressure MDM Narrative Differential diagnosis: Abnormal vaginal bleeding, menorrhagia, metrorrhagia, uterine fibroids, endometrial polyps,, anemia secondary to acute blood loss, ovarian cysts, among others This patient is a 62-year-old female who presents to the emergency department with complaints of ongoing vaginal bleeding. On exam, she was slightly tachycardic. Her blood pressure was stable. Abdomen was benign. Her labs reveal a significant drop in her hemoglobin as to her last H&H, which was approximately 2 weeks ago. The patient has a known diagnosis of uterine fibroids. She is scheduled for surgical intervention. It was felt that since the patient recently had an ultrasound, repeat imaging was unnecessary. Due to the drop in H&H, it was felt appropriate to consult the RN RESEARCH service. She was ordered 2 units of blood. The patient will be evaluated for possible inpatient management. She was in agreement with this plan. Impression & Plan Acute blood loss anemia, Excessive vaginal bleeding Discharge Plan Visit Data *Final* Discharge Date/Time: 10/26/18 16:26 Chief Complaint: Vaginal Bleeding Stated Complaint: BLEEDING, VAGINAL WEAKNESS ED Provider: Dae Hanson ED Midlevel Provider: Karo Lpoez Discharge Problem: Acute blood loss anemia, Excessive vaginal bleeding Patient Disposition: Admitted As Inpatient Discharge Instructions Interventions: ED Discharge Assessment Last Done: 10/26/18 16:26
[2018-10-26 14:29] LABS: INR 1.1 (0.9-1.1); Prothrombin Time 11.4 Seconds (9.0-12.0)
[2018-10-26] MEDS ORDERED: ACETAMINOPHEN 325 MG TAB PO PRN (14:48)
[2018-10-26] MEDS ORDERED: ONDANSETRON INJ 2 MG/ML 2 ML VIAL IV PRN (14:48)
[2018-10-26] MEDS ORDERED: DiphenhydrAMINE HCL 50 MG/ML VIAL IV PRN (15:02)
[2018-10-26] MEDS: NORETHINDRONE 5 MG TAB PO STA ×2 (15:37→15:40)
[2018-10-26] MEDS ORDERED: LACTATED RINGER'S 1,000 ML IV SCH (16:00)
[2018-10-26] MEDS ORDERED: SODIUM CHLORIDE 0.9% 1000ML 1,000 ML IV SCH (16:58)
[2018-10-26] MEDS ORDERED: METFORMIN HCL 500 MG TAB PO SCH (17:30)
[2018-10-26] MEDS ORDERED: NORETHINDRONE 5 MG TAB PO SCH (20:00)
--- NOTE | 2018-10-26 20:15 | Gynecologic Progress Note ---
Date of Service October 26, 2018 Assessment & Plan (1) Vaginal bleeding: Patient admitted for transfusion for heavy vaginal bleeding. Started on high dose norethindrone and bleeding is minimal over past couple hours. Discussed patients case with Dr. Choudhary at [place]. He has kindly agreed to see her in clinic tomorrow. Patient is requesting discharge tonight. I agreed to discharge as long as bleeding remains minimal. Patient agree to follow-up with Dr. Choudhary tomorrow Am. Patient will continue Norethindrone taper with maintenance treatment. Subjective Patient doing well. Ambulating without symptoms. Physical Exam Vital Signs (Past 24 Hours): Last Vital Signs Temp 36.8 C 10/26/18 19:25 Pulse 91 H 10/26/18 19:25 Resp 18 10/26/18 19:25 BP 123/63 10/26/18 19:25 Pulse Ox 98 10/26/18 19:25 Genitourinary: Minimal vaginal bleeding
[2018-10-26] MEDS ORDERED: ATORVASTATIN 10 MG TAB PO SCH (21:00)
[2018-10-26] MEDS ORDERED: LORazepam 0.5 MG TAB PO SCH (21:00)
--- NOTE | 2018-10-26 22:54 | History and Physical Report ---
DATE OF CONSULTATION: 10/26/2018 REASON FOR CONSULTATION: Heavy vaginal bleeding. BRIEF HISTORY: Ms. Lucio is a 62-year-old G2, P2-0-0-2, who initially presented for care secondary to vaginal bleeding on 10/04/2018. At that point, the patient reports that she has had intermittent bleeding of approximately 10-year. However, she noted acute onset heavy bleeding starting in early September, which brought her to the ED on 10/04/2018. At that time, she underwent a transvaginal ultrasound, which showed a thickened endometrial stripe and was started on a norethindrone taper. Ultimately bleeding did improve and the patient was discharged home on a continued norethindrone taper with planned outpatient therapy and outpatient course. The patient underwent an endometrial biopsy, which returned showing insufficient cells. This was followed with a saline ultrasound, which showed a pedunculated posterior lower uterine segment mass with what appeared to be a atrophic endometrium otherwise. The patient also underwent a Pap smear at that same time at that same visit, which returned showing BRIONNA. The patient continued to finish the norethindrone taper approximately 3 days ago. The patient reports that she began having heavier bleeding again starting yesterday and reports that today she is passing a fist size clots quite regularly. Her hemoglobin at the time of discharge was 10. Today in the ED, it was noted to be 7 and the patient was started on blood transfusion in the ED. PAST MEDICAL HISTORY: 1. Hypertension. 2. Anxiety. 3. Hyperlipidemia. 4. Type 2 diabetes. PAST SURGICAL HISTORY: 1. Tubal ligation. 2. Lithotripsy. 3. EGD. 4. Cystoscopy. FAMILY HISTORY: Noncontributory to current consult. SOCIAL HISTORY: The patient reports current everyday smoker. She does drink alcohol and she denies any substance abuse. MEDICATIONS: 1. Atorvastatin. 2. Hydrochlorothiazide. 3. Lisinopril. 4. Lorazepam. 5. Metformin. 6. Ibuprofen. 7. Colace. ALLERGIES: 1. IODINE CONTRAST. 2. LORATADINE. 3. CODEINE. PHYSICAL EXAMINATION: GENERAL: The patient is well appearing in no acute distress, alert and oriented x3. CARDIAC: Performed by the ED showed, regular rate and rhythm. Clear bilaterally. LUNGS: Showed lungs are clear to auscultation bilaterally. ABDOMEN: Soft, nontender. GENITOURINARY: Showed moderate vaginal bleeding at time of exam. LOWER EXTREMITIES: Unremarkable bilaterally. ASSESSMENT AND PLAN: Ms. Lucio is a 62-year-old G2, P2-0-0-2, who presents with heavy vaginal bleeding requiring transfusion of 2 packed red blood cells were also started in the ED. The patient reports that her bleeding was fairly well controlled with the norethindrone, which will be reinitiated for her today. We will initially start the standard norethindrone taper, but we may do an accelerated course, but will continue long-term until she is able to follow up outpatient for scheduled procedures. We will discuss the case with CARDING MACHINE OPERATOR oncology for her surgery. ADRIENNE
[2018-10-27] MEDS ORDERED: NORETHINDRONE 5 MG TAB PO ONE (09:00)
[2018-10-27] MEDS ORDERED: hydroCHLOROthiazide 25 MG TAB PO SCH (09:00)
[2018-10-27] MEDS ORDERED: LISINOPRIL 10 MG TAB PO SCH (09:00)
--- NOTE | 2018-11-05 11:32 | Discharge Summary ---
HOSPITAL COURSE: Ms. Nelson is a 62-year-old with a history of postmenopausal bleeding. The patient presented to the Emergency Department with acute increase in vaginal bleeding. At initial evaluation in the ED, the patient was noted to have moderate vaginal bleeding. She was noted to have an initial hemoglobin and hematocrit of 7.0 and 22.7. The patient was consented for blood products at that time and the patient was started on a norethindrone taper. Several hours later, the patient was noted to have minimal to scant bleeding and was feeling considerably better from the blood transfusion. Additional 2-3 hours of observation were continued and the patient was noted to have scant bleeding. A call was made to [facility]/oncology at [facility] to discuss transfer the patient for care for this heavy bleeding and signs of intrauterine mass concerning for malignancy versus polyp versus fibroid. The B[facility]TER/oncology at [place] did agree to see the patient in the clinic the next day as the patient's bleeding was scant at that point and did not warrant transfer. The patient requested discharge that day so that she can make her way to [place] in the morning. The patient was encouraged to return if she did have increased bleeding again, but otherwise her bleeding at that time had been scant for approximately 3-4 hours. The patient was ultimately discharged in stable condition with norethindrone taper/pills, a 24-hour course of the norethindrone tablets were provided to the patient at the time of discharge to cover her so that she could make it to [place] in the morning without having to worry about stopping by the pharmacy.
== END 2018-10-26 21:00 | disposition home or self-care (01) | DRG 760 ==
LOC: ED 11:46 → 4S2 15:20

== ENCOUNTER 2019-06-15 10:53 | Inpatient (IN) ==
[2019-06-15] MEDS ORDERED: SODIUM CHLORIDE 0.9% 1000ML 1,000 ML IV STA (11:18)
[2019-06-15] MEDS ORDERED: methylPREDNISolone 125 MG/2 ML VIAL IV STA (11:18)
[2019-06-15] MEDS ORDERED: DiphenhydrAMINE HCL 50 MG/ML VIAL IV STA (11:18)
[2019-06-15] MEDS ORDERED: ALBUT/IPRATROP 3MG/0.5MG NEB 3 ML VIAL INH STA (11:18)
--- NOTE | 2019-06-15 11:40 | XRay Report ---
XR chest 1V portable HISTORY: 63 years-old Female Dyspnea acute shortness of breath COMPARISON: Chest radiograph 01/18/2019 TECHNIQUE: Portable AP view of the chest FINDINGS: Cardiomediastinal and hilar silhouettes are within normal limits. Unchanged positioning of the left I J [id number] catheter. No pneumothorax, pleural effusion, focal airspace consolidation or overt pu lmonary edema. Degenerative changes of the shoulders and spine. IMPRESSION: No acute process. The above report was generated using voice recognition software. It may contain grammatical, syntax o r spelling errors. Electronically signed by: Montana Dubon M.D. 06/15/2019 11:39 AM
--- NOTE | 2019-06-15 11:48 | Emergency Department Note ---
History of Present Illness General Chief Complaint: Shortness of Breath/Dyspnea Stated Complaint: SHORTNESS OF BREATH, COUGHING Source: patient Mode of arrival: ambulatory Limitations: no limitations History of Present Illness Provider Complaint: shortness of breath Onset (ago): month(s) (1) Severity: moderate Consistency/Duration: + intermittent Maximum Pain Intensity: 0 Current Pain Intensity: 0 Relieved By: + nothing Exacerbated By: + lying flat, + exertion, + movement, + coughing, + inspiration and + deep breaths Context: + recent illness and + other (hx. endometrial CA, radiation/chemo therapy) Known history of: other (endometrial cancer) Associated symptoms: + pain with inspiration and + cough Treatment prior to arrival: other (Augmentin, Doxycycline) This 63-year-old female with significant past medical history of endometrial cancer who recently underwent LAVH, chemotherapy, and radiation therapy, finishing her last dose of radiation therapy yesterday, presents to the emergency department today, ambulatory, complaining of 1 month long history of cough and shortness of breath. The patient states she was diagnosed with the endometrial cancer earlier this year. Her initial hysterectomy was performed in [place] in the spring. She has been going through chemotherapy and radiation over the past year. Her last chemotherapy treatment was May 16. Last radiation treatment was yesterday. The patient has been complaining of cough productive of yellow phlegm and shortness of breath for the past 1 month. She was initially treated with Augmentin for a possible sinus infection. She was then treated with doxycycline at the end of April. She did have a chest x-ray at the end of April which was clear and did not show any evidence of pneumonia. She has continued to have ongoing symptoms despite the antibiotics. Last evening, the cough got much worse and she was having difficulty sleeping. She denies any chest pain or fever. She does note a history of allergy to IV contrast, but has done well with pretreatment with Benadryl and steroids. She denies any chest pain, abdominal pain, nausea, vomiting, neck pain, headache, di zziness, diaphoresis, numbness, tingling, or weakness. Related Data Home oxygen amount: none Home Medications Home Medications Medication Instructions Recorded Confirmed Type atorvastatin 10 mg PO HS 10/05/18 06/15/19 History hydrochlorothiazide 12.5 mg PO QAM 10/05/18 06/15/19 History lisinopril 30 mg PO QAM 10/05/18 06/15/19 History metformin 1,000 mg PO BID 10/05/18 06/15/19 History lorazepam 0.5 mg tablet 0.5 mg PO BID 05/04/19 06/15/19 History ondansetron HCl 8 mg tablet 8 mg PO TID PRN 05/04/19 06/15/19 History prochlorperazine maleate 10 mg 10 mg PO Q8H PRN 05/04/19 06/15/19 History tablet chlorpheniramine-dextromethorp 2 tab PO UD 06/15/19 06/15/19 History [Coricidin HBP Cough and Cold] magnesium oxide 400 mg (241.3 mg 400 mg PO BID 06/15/19 06/15/19 History magnesium) tablet Allergies Allergy/AdvReac Type Severity Reaction Status Date / Time Iodinated Contrast Media Allergy Severe Swelling Verified 06/15/19 11:59 [Iodinated Contrast- Oral of and IV Dye] Lip/Tongue/Throat loratadine [From Claritin] Allergy Severe Anaphylaxis Verified 06/15/19 11:59 codeine Allergy Intermediate Tachycardia Verified 06/15/19 11:59 adhesive AdvReac Hives Verified 06/15/19 11:59 Past Med/Surg History Medical History Anemia Anxiety Diabetes mellitus, type 2 NIDDM Endometrial cancer History of kidney stones Hyperlipidemia Hypertension Hypomagnesemia Vaginal bleeding Surgical History History of anesthesia reaction SLOW TO WAKE; AGGRESSIVE BEHAVIOR History of cystoscopy History of dilatation and curettage History of esophagogastroduodenoscopy (EGD) History of lithotripsy History of tubal ligation S/P laparoscopic assisted vaginal hysterectomy (LAVH) WITH BSO AND LYMPH NODE REMOVALS surgery 11-30-2018 Family History Aunt Family history of diabetes mellitus Grandmother (Maternal) Family history of diabetes mellitus Mother Shingles Lung cancer Cystic kidney disease Stroke Father , age 63 Heart disease had angina Gangrene Sister No problems noted. Sister Mental health problem Sister , in her 50 ` s Heart disease Myocardial infarction Brother Arthritis Brother Arthritis Mental health disorder Daughter Endometriosis Anxiety Fibromyalgia Son Anxiety Heart palpitations from anxiety Arthritis Depression PTSD (post-traumatic stress disorder) Back problem Grandfather (Maternal) Head and neck cancer Social History Preferred Language: Australian Communication Ability: Effective Hearing Ability: Normal Anesthesiologist Assistant Certified Required: No Beliefs That Will Affect Care: None marital status: single Current Living Situation: Family Current Living Situation Comment: SON LIVES W/ PT current occupational status: 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 Feels Safe at Home: Yes Smoking Status: Former smoker Tobacco Type: cigarettes ; Age Started Using T obacco: 21 ; Cigarettes Per Day: 0-1/2 PPD; VARIES ; Smoking End Date: 03/2019 ; Second Hand Exposure: No ; Hx Alcohol Use: No Hx Substance Use: No Review of Systems A total of 10 systems reviewed and were otherwise negative Physical Exam Vital Signs: Vital Signs - 24 hr 06/15/19 10:56 06/15/19 11:11 06/15/19 11:17 Temperature 37.0 C Temperature Source Oral Pulse Rate 106 H 103 H Pulse Rate [Recove ry] Pulse Rate [Right Apical] Pulse Rate from Sp O2 Sensor 103 H Pulse Rhythm Regular Pulse Strength Normal Respiratory Rate 16 23 Respiratory Rate [ Recovery] Respiratory Effort / Characteristics Non-Labored Non-Labored Sponta neous Respiratory Depth Normal Normal Respiratory Patter n Regular Regular Blood Pressure 143/87 H Blood Pressure Angela n 105 Blood Pressure Pos ition Sitting Pulse Oximetry 93 93 93 Pulse Oximetry [Re covery] Oxygen Delivery Me thod Room Air Room Air Sepsis Recent Feve r Within 48 Hours No Sepsis Action Take n by Nursing No Action Required 06/15/19 11:18 06/15/19 11:30 06/15/19 11:31 Temperature Temperature Source Pulse Rate 102 H 108 H 106 H Pulse Rate [Recove ry] Pulse Rate [Right Apical] Pulse Rate from Sp O2 Sensor 102 H 109 H 105 H Pulse Rhythm Pulse Strength Respiratory Rate 22 14 27 H Respiratory Rate [ Recovery] Respiratory Effort / Characteristics Respiratory Depth Respiratory Patter n Blood Pressure 164/89 H 135/79 Blood Pressure Angela n 95 85 Blood Pressure Pos ition Pulse Oximetry 94 91 92 Pulse Oximetry [Re covery] Oxygen Delivery Me thod Sepsis Recent Feve r Within 48 Hours Sepsis Action Take n by Nursing 06/15/19 12:00 06/15/19 12:01 06/15/19 12:02 Temperature Temperature Source Pulse Rate 103 H 101 H 99 H Pulse Rate [Recove ry] Pulse Rate [Right Apical] Pulse Rate from Sp O2 Sensor 104 H 101 H 99 H Pulse Rhythm Pulse Strength Respiratory Rate 27 H 23 28 H Respiratory Rate [ Recovery] Respiratory Effort / Characteristics Respiratory Depth Respiratory Patter n Blood Pressure 145/100 H Blood Pressure Angela n 124 Blood Pressure Pos ition Pulse Oximetry 93 93 92 Pulse Oximetry [Re covery] Oxygen Delivery Va thod Room Air Sepsis Recent Feve r Within 48 Hours Sepsis Action Take n by Nursing 06/15/19 12:24 06/15/19 12:30 06/15/19 12:31 Temperature Temperature Source Pulse Rate 97 H 99 H Pulse Rate [Recove ry] Pulse Rate [Right Apical] 102 H Pulse Rate from Sp O2 Sensor 97 H 98 H Pulse Rhythm Pulse Strength Respiratory Rate 26 H 22 Respiratory Rate [ Recovery] Respiratory Effort / Characteristics Spontaneous Respiratory Depth Respiratory Patter n Blood Pressure 166/89 H Blood Pressure Angela n 101 Blood Pressure Pos ition Pulse Oximetry 92 91 91 Pulse Oximetry [Re covery] [facility] Recent Feve r Within 48 Hours Sepsis Action Take n by Nursing 06/15/19 13:00 06/15/19 13:11 06/15/19 13:30 Temperature Temperature Source Pulse Rate 128 H 98 H Pulse Rate [Recove ry] 108 H Pulse Rate [Right Apical] Pulse Rate from Sp O2 Sensor 90 Pulse Rhythm Pulse Strength Respiratory Rate 21 20 Respiratory Rate [ Recovery] 22 Respiratory Effort / Characteristics Respiratory Depth Respiratory Patter n Blood Pressure 184/110 H Blood Pressure Angela n 121 Blood Pressure Pos ition Pulse Oximetry 94 Pulse Oximetry [Re covery] 91 Oxygen Delivery Va thod Room Air Sepsis Recent Feve r Within 48 Hours Sepsis Action Take n by Nursing 06/15/19 13:31 06/15/19 14:10 06/15/19 14:12 Temperature Temperature Source Pulse Rate 96 H 100 H 101 H Pulse Rate [Recove ry] Pulse Rate [Right Apical] Pulse Rate from Sp O2 Sensor 96 H 101 H 101 H Pulse Rhythm Pulse Strength Respiratory Rate 21 13 21 Respiratory Rate [ Recovery] Respiratory Effort / Characteristics Respiratory Depth Respiratory Patter n Blood Pressure 167/88 H Blood Pressure Angela n 119 Blood Pressure Pos ition Pulse Oximetry 93 95 95 Pulse Oximetry [Re covery] Oxygen Delivery Me thod Sepsis Recent Feve r Within 48 Hours Sepsis Action Take n by Nursing 06/15/19 14:30 06/15/19 15:00 06/15/19 15:30 Temperature Temperature Source Pulse Rate 100 H 106 H 109 H Pulse Rate [Recove ry] Pulse Rate [Right Apical] Pulse Rate from Sp O2 Sensor 96 H 102 H 107 H Pulse Rhythm Pulse Strength Respiratory Rate 23 26 H 35 H Respiratory Rate [ Recovery] Respiratory Effort / Characteristics Respiratory Depth Respiratory Patter n Blood Pressure 159/99 H 184/104 H 163/97 H Blood Pressure Angela n 116 126 124 Blood Pressure Pos ition Pulse Oximetry 95 91 90 Pulse Oximetry [Re covery] Oxygen Delivery Me thod Sepsis Recent Feve r Within 48 Hours Sepsis Action Take n by Nursing Physical Exam: VITALS: Vitals are noted on the nurse's note and reviewed by myself. Vital signs stable. GENERAL: This is a 63-year-old female, in no acute distress, nondiaphoretic, well-developed well-nourished. SKIN: The skin was without rashes, erythema, edema, or bruising. There is no tenting of the skin. Capillary refill less than 2 seconds. HEAD: Normocephalic atraumatic. EARS: External auditory canals clear, tympanic membranes pearly [place] without erythema or effusion bilaterally. EYES: Pupils equal round and reactive to light and accommodation. Conjunctivae without injection, sclerae without icterus. NOSE: Patent, turbinates without inflammation or discharge. No sinus tenderness. MOUTH: Mucous membranes moist. Tonsils are not enlarged. Pharynx without erythema or exudate. Uvula midline. Airway patent. Tongue does not deviate. NECK: Supple without nuchal rigidity. No lymphadenopathy. Cervical spine is nontender. No JVD. HEART: Regular rate and rhythm without murmurs gallops or rubs. LUNGS: Diffuse wheezing with diminished lung sounds throughout. No retractions or accessory muscle use. ABDOMEN: Positive bowel sounds x 4. Normal tympanic percussion. Soft, nontender, without masses or organomegaly. Sharma sign negative. No guarding or rebound tenderness. MUSCULOSKELETAL: No muscle atrophy, erythema, or edema noted. Full range of motion without joint tenderness in all extremities. No tenderness to palpation. Normal gait. Strength 5/5 throughout. NEURO: Patient was alert and oriented to person place and time. Normal sensation to light and sharp touch. No focal neurological deficits. Course The patient was seen and evaluated as above. IV access obtained, labs drawn. Pt. was medicated with IV fluids, solu-medrol, benadryl, and duoneb treatment. Premedication with solu-medrol and benadryl for hx. IV contrast dye allergy. Imaging performed and reviewed by myself and radiologist as above. Labs reviewed by myself. I discussed the findings with the patient at bedside. I was notified by nursing staff that while walking, the patient O2 saturation decreased to 91% on room air. I discussed the case with my attending. I discussed the case with the information services manager. I discussed the case with Dr. Luna, [facility]. She did agree to see and evaluate the patient. Please see her dictation regarding ongoing management care of this patient. Administered Medications Ioversol (Optiray 320 125ml) 117 ml IV ONCE PRN PRN Reason: Interaction Checking Stop: 06/19/19 12:45 Last Admin: 06/15/19 12:47 Dose: 117 ml Documented by: [id number] Discontinued Medications Albuterol (Duoneb) 3 ml INH NOW STA Stop: 06/15/19 11:19 Last Admin: 06/15/19 12:20 Dose: 3 ml Documented by: [id number] Diphenhydramine HCl (Benadryl) 25 mg IV NOW STA Stop: 06/15/19 11:19 Last Admin: 06/15/19 12:20 Dose: 25 mg Documented by: [id number] Sodium Chloride (Nss 1000ml) 1,000 mls @ 999 mls/hr IV .Q1H1M STA Stop: 06/15/19 12:18 Last Infusion: 06/15/19 13:23 Dose: 0 mls/hr Documented by: [id number] Admin: 06/15/19 12:21 Dose: 999 mls/hr Documented by: [id number] Methylprednisolone (Solumedrol) 125 mg IV NOW STA Stop: 06/15/19 11:19 Last Admin: 06/15/19 12:20 Dose: 125 mg Documented by: [id number] Medical Decision Making Differential Diagnosis + acute exacerbation of chronic obstructive airways disease, + congestive heart failure, + community acquired pneumonia, + asthma with exacerbation, + pulmonary embolism, + COPD, + bronchitis, + pneumothorax, + pneumonia, + pleural effusion, + CHF, + ACS and + aspiration Medical Records Attestation: I reviewed the patient's medical records. Home Medications Current Medication List: was personally reviewed by me Laboratory Data Attestation: I reviewed the patient's lab results. Leukocytosis of 13,000. Mild anemia, no thrombocytopenia. Coags normal. Glucose mildly elevated at 139. Lactic acid 2.8. Negative influenza testing. Urinalysis negative for evidence of infection. Renal, hepatic function, and electrolytes without significant abnormality. Result diagrams: 06/15/19 11:48 06/15/19 11:48 Lab Results 06/15/19 06/15/19 06/15/19 Range/Units 11:48 11:48 11:48 WBC 12.97 H (4.8-10.8) K/uL RBC 3.13 L (4.2-5.4) M/uL Hgb 11.3 L (12.0-16.0) g/dL POC Hgb (12.0-16.0) g/dl Hct 33.5 L (37-47) % POC Hct (37-47) % MCV 107.0 H (80-100) fL MCH 36.1 H (25-34) pg MCHC 33.7 (32-36) g/dL Plt Count 383 (130-400) K/uL Immature Gran % (Auto) 0.4 % Neut % (Auto) 81.1 % Lymph % (Auto) 11.5 % [place] % (Auto) 5.4 % Eos % (Auto) 1.5 % Baso % (Auto) 0.1 % Immature Gran # (Auto) 0.05 H (0.00-0.02) K/uL Neut # (Auto) 10.53 H (1.4-6.5) K/uL Lymph # (Auto) 1.49 (1.2-3.4) K/uL [place] # (Auto) 0.70 H (0.11-0.59) K/uL Eos # (Auto) 0.19 (0-0.5) K/uL Baso # (Auto) 0.01 (0-0.2) K/uL PT 10.9 (9.0-12.0) Seconds INR 1.1 (0.9-1.1) APTT 32.2 H (21.0-31.0) Seconds PTT Ratio 1.2 POC Sodium (135-144) mEq/L Sodium 136 (136-145) mmol/L POC Potassium (3.3-5.0) mEq/L Potassium 4.0 (3.5-5.1) mmol/L POC Chloride (101-112) mEq/L Chloride 102 (98-107) mmol/L Carbon Dioxide 23 (21-32) mmol/L POC Total CO2 (24-31) mEq/l Anion Gap 11.0 (3-11) POC Anion Gap (16-25) mmol/L POC BUN (7-18) mg/dl BUN 15 (7-18) mg/dl Creatinine 0.82 (0.6-1.2) mg/dl POC Creatinine (0.6-1.3) mg/dl Est Cr Clr Drug Dosing Not Reportable Est GFR ( Amer) 88.9 Est GFR (Non-Af Amer) 76.7 BUN/Creatinine Ratio 18.7 (10-20) Glucose 139 H (70-99) mg/dl POC Glucose (other) (70-99) mg/dl Lactate (0.4-2.0) mmol/L Calcium 9.7 (8.5-10.1) mg/dl POC Ioniz Calcium Mariaelena (1.12-1.32) mmol/l Magnesium 1.7 L (1.8-2.4) mg/dl Total Bilirubin 0.3 (0.2-1) mg/dl AST 13 L (15-37) U/L ALT 17 (12-78) U/L Alkaline Phosphatase 131 H (45-117) U/L Troponin I < 0.015 (0-0.045) ng/ml Total Protein 7.8 (6.4-8.2) gm/dl Albumin 3.6 (3.4-5.0) gm/dl Globulin 4.2 H (2.5-4.0) gm/dl Albumin/Globulin Ratio 0.8 L (0.9-2) Urine Color Urine Appearance (Clear) Urine pH (4.5-7.5) Ur Specific [place] (1.000-1.030) Urine Protein (Negative) Urine Glucose (UA) (Negative) Urine Ketones (Negative) Urine Blood (Negative) Urine Nitrite (Negative) Urine Bilirubin (Negative) Urine Urobilinogen (Negative) Ur Leukocyte Esterase (Negative) Influenza Type A (PCR) (Neg) Influenza Type B (PCR) (Neg) 06/15/19 06/15/19 06/15/19 Range/Units 11:53 12:08 12:12 WBC (4.8-10.8) K/uL RBC (4.2-5.4) M/uL Hgb (12.0-16.0) g/dL POC Hgb 11.2 L (12.0-16.0) g/dl Hct (37-47) % POC Hct 33 L (37-47) % MCV (80-100) fL MCH (25-34) pg MCHC (32-36) g/dL Plt Count (130-400) K/uL Immature Gran % (Auto) % Neut % (Auto) % Lymph % (Auto) % [place] % (Auto) % Eos % (Auto) % Baso % (Auto) % Immature Gran # (Auto) (0.00-0.02) K/uL Neut # (Auto) (1.4-6.5) K/uL Lymph # (Auto) (1.2-3.4) K/uL [place] # (Auto) (0.11-0.59) K/uL Eos # (Auto) (0-0.5) K/uL Baso # (Auto) (0-0.2) K/uL PT (9.0-12.0) Seconds INR (0.9-1.1) APTT (21.0-31.0) Seconds PTT Ratio POC Sodium 135 (135-144) mEq/L Sodium (136-145) mmol/L POC Potassium 5.0 (3.3-5.0) mEq/L Potassium (3.5-5.1) mmol/L POC Chloride 101 (101-112) mEq/L Chloride (98-107) mmol/L Carbon Dioxide (21-32) mmol/L POC Total CO2 28 (24-31) mEq/l Anion Gap (3-11) POC Anion Gap 12.0 L (16-25) mmol/L POC BUN 19 H (7-18) mg/dl BUN (7-18) mg/dl Creatinine (0.6-1.2) mg/dl POC Creatinine 0.6 (0.6-1.3) mg/dl Est Cr Clr Drug Dosing Est GFR ( Amer) Est GFR (Non-Af Amer) BUN/Creatinine Ratio (10-20) Glucose (70-99) mg/dl POC Glucose (other) 138 H (70-99) mg/dl Lactate 2.8 H* (0.4-2.0) mmol/L Calcium (8.5-10.1) mg/dl POC Ioniz Calcium Mariaelena 1.15 (1.12-1.32) mmol/l Magnesium (1.8-2.4) mg/dl Total Bilirubin (0.2-1) mg/dl AST (15-37) U/L ALT (12-78) U/L Alkaline Phosphatase (45-117) U/L Troponin I (0-0.045) ng/ml Total Protein (6.4-8.2) gm/dl Albumin (3.4-5.0) gm/dl Globulin (2.5-4.0) gm/dl Albumin/Globulin Ratio (0.9-2) Urine Color Urine Appearance (Clear) Urine pH (4.5-7.5) Ur Specific [place] (1.000-1.030) Urine Protein (Negative) Urine Glucose (UA) (Negative) Urine Ketones (Negative) Urine Blood (Negative) Urine Nitrite (Negative) Urine Bilirubin (Negative) Urine Urobilinogen (Negative) Ur Leukocyte Esterase (Negative) Influenza Type A (PCR) Neg for Influ A (Neg) Influenza Type B (PCR) Neg for Influ B (Neg) 06/15/19 Range/Units 13:00 WBC (4.8-10.8) K/uL RBC (4.2-5.4) M/uL Hgb (12.0-16.0) g/dL POC Hgb (12.0-16.0) g/dl Hct (37-47) % POC Hct (37-47) % MCV (80-100) fL MCH (25-34) pg MCHC (32-36) g/dL Plt Count (130-400) K/uL Immature Gran % (Auto) % Neut % (Auto) % Lymph % (Auto) % [place] % (Auto) % Eos % (Auto) % Baso % (Auto) % Immature Gran # (Auto) (0.00-0.02) K/uL Neut # (Auto) (1.4-6.5) K/uL Lymph # (Auto) (1.2-3.4) K/uL [place] # (Auto) (0.11-0.59) K/uL Eos # (Auto) (0-0.5) K/uL Baso # (Auto) (0-0.2) K/uL PT (9.0-12.0) Seconds INR (0.9-1.1) APTT (21.0-31.0) Seconds PTT Ratio POC Sodium (135-144) mEq/L Sodium (136-145) mmol/L POC Potassium (3.3-5.0) mEq/L Potassium (3.5-5.1) mmol/L POC Chloride (101-112) mEq/L Chloride (98-107) mmol/L Carbon Dioxide (21-32) mmol/L POC Total CO2 (24-31) mEq/l Anion Gap (3-11) POC Anion Gap (16-25) mmol/L POC BUN (7-18) mg/dl BUN (7-18) mg/dl Creatinine (0.6-1.2) mg/dl POC Creatinine (0.6-1.3) mg/dl Est Cr Clr Drug Dosing Est GFR ( Amer) Est GFR (Non-Af Amer) BUN/Creatinine Ratio (10-20) Glucose (70-99) mg/dl POC Glucose (other) (70-99) mg/dl Lactate (0.4-2.0) mmol/L Calcium (8.5-10.1) mg/dl POC Ioniz Calcium Mariaelena (1.12-1.32) mmol/l Magnesium (1.8-2.4) mg/dl Total Bilirubin (0.2-1) mg/dl AST (15-37) U/L ALT (12-78) U/L Alkaline Phosphatase (45-117) U/L Troponin I (0-0.045) ng/ml Total Protein (6.4-8.2) gm/dl Albumin (3.4-5.0) gm/dl Globulin (2.5-4.0) gm/dl Albumin/Globulin Ratio (0.9-2) Urine Color Yellow Urine Appearance Clear (Clear) Urine pH 6.5 (4.5-7.5) Ur Specific [place] 1.014 (1.000-1.030) Urine Protein Negative (Negative) Urine Glucose (UA) Negative (Negative) Urine Ketones Negative (Negative) Urine Blood Negative (Negative) Urine Nitrite Negative (Negative) Urine Bilirubin Negative (Negative) Urine Urobilinogen Negative (Negative) Ur Leukocyte Esterase Negative (Negative) Influenza Type A (PCR) (Neg) Influenza Type B (PCR) (Neg) Imaging Data Radiologist's Impression: XR chest 1V portable HISTORY: 63 years-old Female Dyspnea acute shortness of breath COMPARISON: Chest radiograph 01/18/2019 TECHNIQUE: Portable AP view of the chest FINDINGS: Cardiomediastinal and hilar silhouettes are within normal limits. Unchanged positioning of the left IJ [id number] catheter. No pneumothorax, pleural effusion, focal airspace consolidation or overt pulmonary edema. Degenerative changes of the shoulders and spine. IMPRESSION: No acute process. The above report was generated using voice recognition software. It may contain grammatical, syntax or spelling errors. Electronically signed by: Montana Dubon M.D. 06/15/2019 11:[address] angio chest PE protocol CLINICAL HISTORY: 63 years-old Female presenting with Dyspnea, tachycardia, cough, cancer. TECHNIQUE: Multidetector CT angiography of the chest was performed after administration of intravenous contrast. 3-D volumetric and/or maximum intensity projection (MIP) images were subsequently reconstructed for review. IV contrast: 117 mL of Optiray 320. One or more dose lowering techniques were used consistent with the principles of ALARA (as low as reasonably achievable), including automatic exposure control, mA or kV adjustment to individual patient size, and/or use of iterative reconstruction. COMPARISON: Chest x-ray performed earlier the same day. CT DOSE (mGy.cm): The estimated cumulative dose is 446.18 mGy.cm. FINDINGS: Cloth Shearer topogram: Left internal jugular Mediport terminates in the SVC. Pulmonary vasculature: The study is adequate for assessment of the pulmonary vascular tree. No filling defect within the pulmonary arteries to suggest embolus. Main pulmonary artery is not enlarged. No flattening of the interventricular septum. No intracardiac filling defect. No reflux of contrast into the hepatic veins. Remaining chest: Soft tissues: Normal thyroid. Left internal jugular Mediport in place. No axill shahana, supraclavicular, or mediastinal lymphadenopathy. Few small hilar lymph nodes may be present. Atherosclerosis of the aorta. Normal heart size. Coronary artery calcification. No pericardial or pleural effusion. Upper abdomen normal. Lungs and airways: No pneumothorax. Diffuse bronchial wall thickening. Pulmonary arteries are not significantly enlarged relative to adjacent bronchi. No interlobular septal thickening. As a continuation throughout the lungs most likely suggests small airways disease. Several fissural solid nodules with benign morphologies noted, the largest measuring 3 mm. No other focal infiltrate or nodule. Musculoskeletal: Degenerative changes of the spine. IMPRESSION: 1. No evidence of pulmonary embolus. 2. Diffuse bronchial wall thickening and mosaic attenuation most likely suggests reactive airways disease/small airways disease or viral bronchitis/bronchiolitis. No focal infiltrate to suggest pneumonia. 3. No convincing evidence of volume overload or congestive change. 4. Multiple solid fissural nodules with benign morphologies measuring up to 3 mm. Fleischner Society 2017 criteria do not apply in the setting of known malignancy. Electronically signed by: Marcus Hernandez M.D. 06/15/2019 1:00 PM ECG Data Attestation: I personally reviewed and interpreted this ECG as follows: Prior ECG tracings: available for review Interpretation: Sinus tachycardia with a ventricular rate of 102 bpm. No acute ischemic changes. No ST elevation. No T wave inversion. No significant change when compared to EKG of September 2018. Blood Pressure Blood Pressure Findings: Elevated blood pressure Blood Pressure Disposition: further management by hospitalist BRAXTON Mari This 63-year-old female patient presents emergency department today due to 1 month long history of cough and dyspnea. The dyspnea is intermittent, but worse with lying flat. She does complain of productive cough of yellow phlegm. She denies a fever, but is a cancer patient. She recently finished Augmentin as well as doxycycline due to the symptoms. Imaging does not show any evidence of PE or pneumonia. There is suggestion of reactive airway disease/small airway disease or viral bronchitis or bronchiolitis. Patient does have diminished lung sounds, is tachycardic, and desats when walking. Her symptoms somewhat improved with steroids and DuoNeb treatment. She was also hydrated with IV fluids. There is a leukocytosis as well as elevated lactic acid level. I did recommend admission due to the patient's symptoms and physical examination. The patient will be seen and evaluated by the hospitalist for further management of her sy mptoms. The chart was completed utilizing [employer] ([employer] Speech voice recognition software. Grammatical errors, random word insertions, pronoun errors, and incomplete sentences are an occasional consequence of this system due to software limitations, ambient noise, and hardware issues. Any formal questions or concerns about the content, text, or information contained within the body of this dictation should be directly addressed to the provider for clarification. Impression & Plan SOB (shortness of breath), Endometrial cancer, Hypomagnesemia Discharge Plan Visit Data Chief Complaint: Shortness of Breath/Dyspnea Stated Complaint: SHORTNESS OF BREATH, COUGHING ED Provider: Lj [facility] ED Midlevel Provider: Griselda Romero Discharge Problem: SOB (shortness of breath), Endometrial cancer, Hypomagnesemia Patient Disposition: Admitted As Inpatient Condition: Good Forms Stand Alone Forms: [facility] Prescriptions Prescriptions: No Action ondansetron HCl [Zofran] 8 mg tablet 8 mg PO TID PRN (Reason: Nausea) RF: 0 prochlorperazine maleate [Compazine] 10 mg tablet 10 mg PO Q8H PRN (Reason: Nausea) RF: 0 magnesium oxide 400 mg (241.3 mg magnesium) tablet 400 mg PO BID RF: 0 atorvastatin 10 mg Tablet 10 mg PO HS RF: 0 metformin 1,000 mg Tablet 1,000 mg PO BID RF: 0 hydrochlorothiazide 12.5 mg Capsule 12.5 mg PO QAM RF: 0 lisinopril 30 mg Tablet 30 mg PO QAM RF: 0 lorazepam 0.5 mg tablet 0.5 mg PO BID RF: 0 Coricidin HBP Cough and Cold 4-30 mg Tablet 2 tab PO UD RF: 0 Referrals Referrals: Caitlin Mehta PA-C [Primary Care Provider] -
[2019-06-15 12:20] LABS: INR 1.1 (0.9-1.1); Partial Thromboplastin Ratio 1.2; Partial Thromboplastin Time 32.2 Seconds (21.0-31.0); Prothrombin Time 10.9 Seconds (9.0-12.0)
[2019-06-15 12:22] LABS: Alanine Aminotransferase 17 U/L (12-78); Albumin Level 3.6 gm/dl (3.4-5.0); Aspartate Aminotransferase 13 U/L (15-37); BUN Creatinine Ratio 18.7 (10-20); Blood Urea Nitrogen 15 mg/dl (7-18); Calcium 9.7 mg/dl (8.5-10.1); Carbon Dioxide 23 mmol/L (21-32); Chloride 102 mmol/L (98-107); Est GFR (African American) 88.9; Est GFR (Non-African American) 76.7; Glucose 139 mg/dl (70-99); Magnesium 1.7 mg/dl (1.8-2.4); Sodium 136 mmol/L (136-145)
[2019-06-15 12:24] LABS: iSTAT Creatinine 0.6 mg/dl (0.6-1.3); iSTAT Hemoglobin 11.2 g/dl (12.0-16.0); iSTAT Ionized Calcium 1.15 mmol/l (1.12-1.32)
[2019-06-15 12:26] LABS: Albumin Globulin Ratio 0.8 (0.9-2); Alkaline Phosphatase 131 U/L (45-117); Bilirubin,Total 0.3 mg/dl (0.2-1); Globulin 4.2 gm/dl (2.5-4.0); Total Protein 7.8 gm/dl (6.4-8.2); Troponin I < 0.015 ng/ml (0-0.045)
[2019-06-15 12:39] LABS: Basophils # (auto) 0.01 K/uL (0-0.2); Basophils % (auto) 0.1 %; Eosinophils # (auto) 0.19 K/uL (0-0.5); Eosinophils % (auto) 1.5 %; Hematocrit (blood only) 33.5 % (37-47); Hemoglobin 11.3 g/dL (12.0-16.0); Immature Granulocytes # (auto) 0.05 K/uL (0.00-0.02); Immature Granulocytes % (auto) 0.4 %; Lymphocytes # (auto) 1.49 K/uL (1.2-3.4); Lymphocytes % (auto) 11.5 %; Mean Corpuscular Hemoglobin 36.1 pg (25-34); Mean Corpuscular Hgb Conc 33.7 g/dL (32-36); Monocytes % (auto) 5.4 %; Neutrophils # (auto) 10.53 K/uL (1.4-6.5); Neutrophils % (auto) 81.1 %; Platelet Count 383 K/uL (130-400); Red Blood Count 3.13 M/uL (4.2-5.4); White Blood Count 12.97 K/uL (4.8-10.8)
[2019-06-15] MEDS ORDERED: OPTIRAY 320 125ml IV PRN (12:46)
--- NOTE | 2019-06-15 13:02 | CT Scan Report ---
CT angio chest PE protocol CLINICAL HISTORY: 63 years-old Female presenting with Dyspnea, tachycardia, cough, cancer. TECHNIQUE: Multidetector CT angiography of the chest was performed after administration of intravenou s contrast. 3-D volumetric and/or maximum intensity projection (MIP) images were subsequently reconst ructed for review. IV contrast: 117 mL of Optiray 320. One or more dose lowering techniques were used consistent with the principles of ALARA (as low as reasonably achievable), including automatic expos ure control, mA or kV adjustment to individual patient size, and/or use of iterative reconstruction. COMPARISON: Chest x-ray performed earlier the same day. CT DOSE (mGy.cm): The estimated cumulative dose is 446.18 mGy.cm. FINDINGS: Sprayer Machine topogram: Left internal jugular Mediport terminates in the SVC. Pulmonary vasculature: The study is adequate for assessment of the pulmonary vascular tree. No filling defect within the pul monary arteries to suggest embolus. Main pulmonary artery is not enlarged. No flattening of the inter ventricular septum. No intracardiac filling defect. No reflux of contrast into the hepatic veins. Remaining chest: Soft tissues: Normal thyroid. Left internal jugular Mediport in place. No axillary, supraclavicular, or mediastinal lymphadenopathy. Few small hilar lymph nodes may be present. Atherosclerosis of the ao rta. Normal heart size. Coronary artery calcification. No pericardial or pleural effusion. Upper abdo men normal. Lungs and airways: No pneumothorax. Diffuse bronchial wall thickening. Pulmonary arteries are not sig nificantly enlarged relative to adjacent bronchi. No interlobular septal thickening. As a continuatio n throughout the lungs most likely suggests small airways disease. Several fissural solid nodules wit h benign morphologies noted, the largest measuring 3 mm. No other focal infiltrate or nodule. Musculoskeletal: Degenerative changes of the spine. IMPRESSION: 1. No evidence of pulmonary embolus. 2. Diffuse bronchial wall thickening and mosaic attenuation most likely suggests reactive airways di sease/small airways disease or viral bronchitis/bronchiolitis. No focal infiltrate to suggest pneumon ia. 3. No convincing evidence of volume overload or congestive change. 4. Multiple solid fissural nodules with benign morphologies measuring up to 3 mm. Fleischner Society 2017 criteria do not apply in the setting of known malignancy. Electronically signed by: Marcus Hernandez M.D. 06/15/2019 1:00 PM
[2019-06-15 13:12] LABS: Appearance Urine Clear (Clear); Bilirubin Urine Negative (Negative); Blood Urine Negative (Negative); Color Urine Yellow; Glucose Urine UA Negative (Negative); Ketones Urine Negative (Negative); Leukocyte Esterase Urine Negative (Negative); Nitrite Urine Negative (Negative); Protein Urine Negative (Negative); Specific Gravity Urine 1.014 (1.000-1.030); Urobilinogen Urine Negative (Negative); pH Urine 6.5 (4.5-7.5)
[2019-06-15 13:49] LABS: Influenza A virus by PCR Neg for Influ A (Neg); Influenza B virus by PCR Neg for Influ B (Neg)
--- NOTE | 2019-06-15 14:56 | History & Physical Report ---
Date of Service June 15, 2019 Assessment & Plan (1) SOB (shortness of breath): Uncertain etiology CTA suggests reactive airway disease ?? recent PNA vs pulm virus Finished course of doxy, will not dose further given CTA neg for PNA ?? of underlying COPD component given pt just quit smoking 2 months ago?? Will need formal PFTs once recovered from this episode Feeling improved s/p nebs, steroids Continue with nebs, add mucomyst States that steroids cause issues with BS, no current wheezing, will do low dose steroids--pred 20mg BID Elevated lactic acid in the setting of recent chemo Trop neg IS Flu neg CTA neg for PE CTA does note some small nodules, seen on prior CT 11/2018 (2) Endometrial cancer: Last chemo 05/16 Last radiation 06/15 Follow[facility] with [facility] (3) Hypertension: continue home meds (4) Anxiety: continue home meds (5) Hypomagnesemia: Just started on PO replacement as outpt, continue IV x1, recheck (6) DVT prophylaxis: Lovenox for DVT proph History of Present Illness Primary Care Provider: Caitlin Mehta PA-C 63 y/o F c/o cough and SOB. Pt has been undergoing tx for endometrial cancer. She had her last chemo on 05/16. She started radiation on 06/06 and had her last of 5 tx today. Pt states that over the last month she has had progressive worsening of cough, sputum production, and SOB. It was initially thought that this was a sinus infection and pt was started on augmentin on 05/16 by oncology PSYCHIATRIC SECRETARY. She was seen by her PCP 5 days later and this was switched to doxy. She finished a 10 day course of doxy. She had no change in her sx with this tx. Sx continued to worsen over the last few days. She has been bringing up more yellow/green mucous. She has been progressively SOB with exertion to the point that the last few days she had to rest while getting dressed. Today she arrived to rad/onc for her last tx and was so SOB when she got into the office that they discussed waiting on her tx until next week. She wanted to complete and was able to finish her tx after resting for a bit in the office. Pt does get some pain at the bottom of b/l ribs with intense coughing episodes, but no patrick chest pain otherwise. Pt denies fever, abd pain, n/v, LE pain or swelling. Pt did have an episode of diarrhea yesterday, but none today. Pt has never been sick like this prior. Pt received nebs and steroids in the ED. She feels that she is able to bring up more sputum now and that her breathing is better. She did get OOB to the bathroom and still noted some GORDON, but better. Allergies Allergy/AdvReac Type Severity Reaction Status Date / Time Iodinated Contrast Media Allergy Severe Swelling Verified 06/15/19 11:59 [Iodinated Contrast- Oral of and IV Dye] Lip/Tongue/Throat loratadine [From Claritin] Allergy Severe Anaphylaxis Verified 06/15/19 11:59 codeine Allergy Intermediate Tachycardia Verified 06/15/19 11:59 adhesive AdvReac Hives Verified 06/15/19 11:59 Home Medications Home Medications Medication Instructions Recorded Confirmed Type atorvastatin 10 mg PO HS 10/05/18 06/15/19 History hydrochlorothiazide 12.5 mg PO QAM 10/05/18 06/15/19 History lisinopril 30 mg PO QAM 10/05/18 06/15/19 History metformin 1,000 mg PO BID 10/05/18 06/15/19 History lorazepam 0.5 mg tablet 0.5 mg PO BID 05/04/19 06/15/19 History ondansetron HCl 8 mg tablet 8 mg PO TID PRN 05/04/19 06/15/19 History prochlorperazine maleate 10 mg 10 mg PO Q8H PRN 05/04/19 06/15/19 History tablet chlorpheniramine-dextromethorp 2 tab PO UD 06/15/19 06/15/19 History [Coricidin HBP Cough and Cold] magnesium oxide 400 mg (241.3 mg 400 mg PO BID 06/15/19 06/15/19 History magnesium) tablet Past Med/Surg History Medical History Anemia Anxiety Diabetes mellitus, type 2 NIDDM Endometrial cancer History of kidney stones Hyperlipidemia Hypertension Vaginal bleeding Surgical History History of anesthesia reaction SLOW TO WAKE; AGGRESSIVE BEHAVIOR History of cystoscopy History of dilatation and curettage History of esophagogastroduodenoscopy (EGD) History of lithotripsy History of tubal ligation S/P laparoscopic assisted vaginal hysterectomy (LAVH) WITH BSO AND LYMPH NODE REMOVALS surgery 11-30-2018 Family History Aunt Family history of diabetes mellitus Grandmother (Maternal) Family history of diabetes mellitus Mother Shingles Lung cancer Cystic kidney disease Stroke Father , age 63 Heart disease had angina Gangrene Sister No problems noted. Sister Mental health problem Sister , in her 50 ` s Heart disease Myocardial infarction Brother Arthritis Brother Arthritis Mental health disorder Daughter Endometriosis Anxiety Fibromyalgia Son Anxiety Heart palpitations from anxiety Arthritis Depression PTSD (post-traumatic stress disorder) Back problem Grandfather (Maternal) Head and neck cancer Social History (Updated 06/15/19 @ 15:07 by Delmi Luna DO) Preferred Language: Kosovan Communication Ability: Effective Hearing Ability: Normal Skimmer Reverberatory Required: No Beliefs That Will Affect Care: None marital status: single Current Living Situation: Family Current Living Situation Comment: SON LIVES W/ PT current occupational status: 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 Feels Safe at Home: Yes Smoking Status: Former smoker Tobacco Type: cigarettes ; Age Started Using Tobacco: 21 ; Cigarettes Per Day: 0-1/2 PPD; VARIES ; Smoking End Date: 03/2019 ; Second Hand Exposure: No ; Hx Alcohol Use: No Hx Substance Use: No Review of Systems Review of Systems: Pertinent positives and negatives reviewed in HPI--all others negative Physical Exam Constitutional: WD/WN, vitals as above Eyes: normal visual palacios by confrontation and + anicteric sclerae Neck: normal visual inspection and trachea midline Respiratory: normal respiratory effort; no respiratory distress Auscultation: no crackles and no wheezes upper airway congestion noted Cardiovascular: Rate/Rhythm: regular rate and regular rhythm Gastrointestinal (Abdomen): Inspection/Auscultation: abdomen not distended Percussion/Palpation: abdomen soft; abdomen nontender Musculoskeletal: Head/Neck/Chest: normocephalic and head atraumatic negative for edema, peripheral pulses intact Skin: no rashes, warm and dry Neurologic: awake; not confused Speech / Cognition: normal speech Psychiatric: A+Ox3, euthymic affect Results & Data Vital Signs (Past 12 Hours) Vital Signs Temp Pulse Pulse Pulse Resp Resp BP 06/15/19 14:12 101 H 21 167/88 H 06/15/19 14:10 100 H 13 06/15/19 13:31 96 H 21 06/15/19 13:30 98 H 20 184/110 H 06/15/19 13:11 108 H 22 06/15/19 13:00 128 H 21 06/15/19 12:31 99 H 22 06/15/19 12:30 97 H 26 H 166/89 H 06/15/19 12:24 102 H 06/15/19 12:02 99 H 28 H 06/15/19 12:01 101 H 23 145/100 H 06/15/19 12:00 103 H 27 H 06/15/19 11:31 106 H 27 H 135/79 06/15/19 11:30 108 H 14 06/15/19 11:18 102 H 22 164/89 H 06/15/19 11:17 103 H 23 06/15/19 11:11 06/15/19 10:56 37.0 C 106 H 16 143/87 H Pulse Ox Pulse Ox 06/15/19 14:12 95 06/15/19 14:10 95 06/15/19 13:31 93 06/15/19 13:30 94 06/15/19 13:11 91 06/15/19 13:00 06/15/19 12:31 91 06/15/19 12:30 91 06/15/19 12:24 92 06/15/19 12:02 92 06/15/19 12:01 93 06/15/19 12:00 93 06/15/19 11:31 92 06/15/19 11:30 91 06/15/19 11:18 94 06/15/19 11:17 93 06/15/19 11:11 93 06/15/19 10:56 93 Diagnostic Findings CXR: neg for acute CTA: 1. No evidence of pulmonary embolus. 2. Diffuse bronchial wall thickening and mosaic attenuation most likely suggests reactive airways disease/small airways disease or viral bronchitis/bronchiolitis. No focal infiltrate to suggest pneumonia. 3. No convincing evidence of volume overload or congestive change. 4. Multiple solid fissural nodules with benign morphologies measuring up to 3 mm. Fleischner Society 2017 criteria do not apply in the setting of known malignancy. Code Status & VTE Plan Code Status Full code VTE Prophylaxis Plan VTE Prophylaxis will be ordered: Yes PG Care Time/CCT Total # of Minutes Spent Total Time Spent with Patient: Total time spent is greater than 50% in coordination of care (as documented) at patient's floor/unit and/or counseling patient: (1) Hypertension Hypertension type: unspecified Qualified Code(s): I10 - Essential (primary) hypertension
[2019-06-15] MEDS ORDERED: predniSONE 20 MG TAB PO STA (16:40)
[2019-06-15] MEDS ORDERED: PROCHLORPERAZINE MALEATE 10 MG TAB PO PRN (16:40)
[2019-06-15] MEDS ORDERED: MAGNESIUM HYDROXIDE SUSP 30 ML UDC PO PRN (16:40)
[2019-06-15] MEDS ORDERED: CARBOHYDRATES FOR HYPOGLYCEMIA PO PRN (16:40)
[2019-06-15] MEDS ORDERED: GLUCOSE 10 TABS/TUBE PO PRN (16:40)
[2019-06-15] MEDS ORDERED: GLUCAGON FOR INJ 1 MG VIAL SQ PRN (16:40)
[2019-06-15] MEDS ORDERED: GLUCOSE 40% GEL 15 GM TUBE PO PRN (16:40)
[2019-06-15] MEDS ORDERED: ACETAMINOPHEN 325 MG TAB PO PRN (16:40)
[2019-06-15] MEDS ORDERED: ONDANSETRON INJ 2 MG/ML 2 ML VIAL IV PRN (16:40)
[2019-06-15] MEDS ORDERED: DEXTROSE 50% 50 ML SYRINGE IV PRN (16:40)
[2019-06-15] MEDS ORDERED: ONDANSETRON 8 MG TABLET PO PRN (16:40)
[2019-06-15] MEDS: ALBUT/IPRATROP 3MG/0.5MG NEB 3 ML VIAL NEB SCH ×3 (17:49→23:13)
[2019-06-15] MEDS: MAGNESIUM SULFATE / D5W 1 GM/100 ML BAG IV SCH ×2 (18:15→19:15)
[2019-06-15] MEDS: INSULIN ASPART 100 UNITS/ML 3 ML PEN SC SCH ×2 (18:17→21:07)
[2019-06-15] MEDS: ACETYLCYSTEINE 20% INHAL SOLN ***DISPENSED BY RESP. INH SCH (19:22)
[2019-06-15] MEDS: MAGNESIUM OXIDE 400 MG TAB PO SCH (20:19)
[2019-06-15] MEDS: LORazepam 0.5 MG TAB PO SCH (20:19)
[2019-06-15] MEDS ORDERED: LANTUS PER UNIT CHARGE SQ ONE (20:30)
[2019-06-15] MEDS ORDERED: ATORVASTATIN 10 MG TAB PO SCH (21:00)
[2019-06-16] MEDS: ALBUT/IPRATROP 3MG/0.5MG NEB 3 ML VIAL NEB SCH ×3 (03:05→11:08)
[2019-06-16 06:33] LABS: Basophils # (auto) 0.01 K/uL (0-0.2); Basophils % (auto) 0.1 %; Hematocrit (blood only) 29.8 % (37-47); Immature Granulocytes # (auto) 0.05 K/uL (0.00-0.02); Immature Granulocytes % (auto) 0.5 %; Lymphocytes # (auto) 0.83 K/uL (1.2-3.4); Lymphocytes % (auto) 8.8 %; Mean Corpuscular Hemoglobin 35.8 pg (25-34); Mean Corpuscular Hgb Conc 33.6 g/dL (32-36); Mean Corpuscular Volume 106.8 fL (80-100); Mean Platelet Volume 8.8 fL (7.4-10.4); Monocytes # (auto) 0.51 K/uL (0.11-0.59); Monocytes % (auto) 5.4 %; Neutrophils % (auto) 85.2 %; Platelet Count 341 K/uL (130-400); RDW Coefficient of Variation 15.4 % (11.5-14.5); RDW Standard Deviation 59.9 fL (36.4-46.3); Red Blood Count 2.79 M/uL (4.2-5.4)
[2019-06-16] MEDS: ACETYLCYSTEINE 20% INHAL SOLN ***DISPENSED BY RESP. INH SCH (07:12)
[2019-06-16] MEDS: LORazepam 0.5 MG TAB PO SCH (07:56)
[2019-06-16] MEDS: MAGNESIUM OXIDE 400 MG TAB PO SCH (07:57)
[2019-06-16 08:22] LABS: Estimated Average Glucose 169 mg/dl; Hemoglobin A1C 7.5 % (4.5-5.6)
[2019-06-16] MEDS: INSULIN ASPART 100 UNITS/ML 3 ML PEN SC SCH ×2 (08:33→12:38)
[2019-06-16] MEDS ORDERED: ENOXAPARIN INJ 40 MG/0.4 ML SYR SQ SCH (09:00)
[2019-06-16] MEDS ORDERED: predniSONE 20 MG TAB PO SCH (09:00)
[2019-06-16] MEDS ORDERED: hydroCHLOROthiazide 25 MG TAB PO SCH (09:00)
[2019-06-16] MEDS ORDERED: LISINOPRIL 10 MG TAB PO SCH (09:00)
--- NOTE | 2019-06-16 10:33 | Hospitalist Progress Note ---
Date of Service June 16, 2019 Assessment & Plan (1) SOB (shortness of breath): Resolved. Patient states that the nebulizer helps a lot. Patient has acute sinusitis and postnasal drip. Uncertain etiology Patient already finished course of doxy and there is no wheezing dullness crackles on the clinical exam. Flu neg CTA neg for PE CTA does note some small nodules, seen on prior CT 11/2018 Patient will follow-up with her oncologist and repeat chest x-ray in 3 months. Started on Flonase, nasal saline and chlorpheniramine which patient can tolerate very well for acute on chronic sinusitis. Patient advised to take chlorpheniramine only temporary while she has symptoms of acute on chronic sinusitis. Shortness of breath completely resolved and most likely was related to postnasal drip and plugging of the bronchi. Position home. Patient would need to follow-up with her oncologist at the schedule appointment which is tomorrow. (2) Endometrial cancer: Last chemo 05/16 Last radiation 06/15 Follows with [facility] (3) Hypertension: continue home meds (4) Anxiety: continue home meds (5) Hypomagnesemia: Replenished. (6) DVT prophylaxis: Lovenox for DVT proph Subjective Patient seen and examined at the bedside. No acute event overnight. She said nebulizer helps a lot. She would like to stop prednisone because it makes her sugar going up and she does not have any wheezing. Patient denies fever, chills, chest pain, shortness of breath, abdominal pain, frequency, urgency. Patient is asking if she can be discharged home. Review of Systems Review of Systems: All systems reviewed & are unremarkable except as noted in HPI & below Physical Exam Constitutional: WD/WN, vitals as above Eyes: normal visual palacios by confrontation and + anicteric sclerae Neck: normal visual inspection and trachea midline Respiratory: normal respiratory effort; no respiratory distress Auscultation: no crackles and no wheezes Cardiovascular: Rate/Rhythm: regular rate and regular rhythm Gastrointestinal (Abdomen): Inspection/Auscultation: abdomen not distended Percussion/Palpation: abdomen soft; abdomen nontender Musculoskeletal: Head/Neck/Chest: normocephalic and head atraumatic Skin: no rashes, warm and dry Neurologic: awake; not confused Speech / Cognition: normal speech Psychiatric: A+Ox3, euthymic affect Results & Data Vital Signs (Past 12 Hours) Vital Signs Temp Pulse Resp BP Pulse Ox 06/16/19 07:13 110 H 16 97 06/16/19 03:05 105 H 16 95 06/15/19 23:15 106 H 17 95 06/15/19 23:05 36.9 C 111 H 20 158/85 H 94 PG Care Time/CCT Total # of Minutes Spent Total Time Spent with Patient: Total time spent is greater than 50% in coordination of care (as documented) at patient's floor/unit and/or counseling patient: (1) Hypertension Hypertension type: unspecified Qualified Code(s): I10 - Essential (primary) hypertension
[2019-06-16 11:52] VITALS: BP 154/80; TEMP 97.9; O2SAT 94
--- NOTE | 2019-06-16 12:36 | Discharge Summary ---
Date of Service June 16, 2019 Admission HPI Per Admitting Provider 63 y/o F c/o cough and SOB. Pt has been undergoing tx for endometrial cancer. She had her last chemo on 05/16. She started radiation on 06/06 and had her last of 5 tx today. Pt states that over the last month she has had progressive worsening of cough, sputum production, and SOB. It was initially thought that this was a sinus infection and pt was started on augmentin on 05/16 by oncology ELECT[employer]ICIAN SUPER[employer]OR [employer]. She was seen by her PCP 5 days later and this was switched to doxy. She finished a 10 day course of doxy. She had no change in her sx with this tx. Sx continued to worsen over the last few days. She has been bringing up more yellow/green mucous. She has been progressively SOB with exertion to the point that the last few days she had to rest while getting dressed. Today she arrived to rad/onc for her last tx and was so SOB when she got into the office that they discussed waiting on her tx until next week. She wanted to complete and was able to finish her tx after resting for a bit in the office. Pt does get some pain at the bottom of b/l ribs with intense coughing episodes, but no patrick chest pain otherwise. Pt denies fever, abd pain, n/v, LE pain or swelling. Pt did have an episode of diarrhea yesterday, but none today. Pt has never been sick like this prior. Pt received nebs and steroids in the ED. She feels that she is able to bring up more sputum now and that her breathing is better. She did get OOB to the bathroom and still noted some GORDON, but better. Principal Diagnosis none Discharge Exam Constitutional WD/WN, vitals as above Eyes normal visual palacios by confrontation and + anicteric sclerae Neck normal visual inspection and trachea midline Respiratory normal respiratory effort; no respiratory distress Auscultation: no crackles and no wheezes Cardiovascular Rate/Rhythm: regular rate and regular rhythm Gastrointestinal (Abdomen) Inspection/Auscultation: abdomen not distended Percussion/Palpation: abdomen soft; abdomen nontender Musculoskeletal Head/Neck/Chest: normocephalic and head atraumatic Skin no rashes, warm and dry Neurologic awake; not confused Speech / Cognition: normal speech Psychiatric A+Ox3, euthymic affect Discharge Data Allergies Allergy/AdvReac Type Severity Reaction Status Date / Time Iodinated Contrast Media Allergy Severe Swelling Verified 06/15/19 11:59 [Iodinated Contrast- Oral of and IV Dye] Lip/Tongue/Throat loratadine [From Claritin] Allergy Severe Anaphylaxis Verified 06/15/19 11:59 codeine Allergy Intermediate Tachycardia Verified 06/15/19 11:59 adhesive AdvReac Hives Verified 06/15/19 11:59 Consultations 06/15/19 14:01 ED Decision to Admit Stat Ordered Studies 06/15/19 11:19 CT angio chest PE protocol Stat Hospital Course (1) SOB (shortness of breath): Resolved. Patient states that the nebulizer helps a lot. Patient has acute sinusitis and postnasal drip. Uncertain etiology Patient already finished course of doxy and there is no wheezing dullness crackles on the clinical exam. Flu neg CTA neg for PE CTA does note some small nodules, seen on prior CT 11/2018 Patient will follow-up with her oncologist and repeat chest x-ray in 3 months. Started on Flonase, nasal saline and chlorpheniramine which patient can tolerate very well for acute on chronic sinusitis. Patient advised to take chlorpheniramine only temporary while she has symptoms of acute on chronic sinusitis. Shortness of breath completely resolved and most likely was related to postnasal drip and plugging of the bronchi. Position home. Patient would need to follow-up with her oncologist at the schedule appointment which is tomorrow. (2) Endometrial cancer: Last chemo 05/16 Last radiation 06/15 Follows with Cancer Center (3) Hypertension: continue home meds (4) Anxiety: continue home meds (5) Hypomagnesemia: Replenished. (6) DVT prophylaxis: Lovenox for DVT proph Total Time Total Time Spent Total Time Spent (In Minutes): over 30 min Discharge Plan Discharge Items Patient Disposition: Home - Self-Care Reason For Visit: SOB Discharge Diagnosis: acute on chronic sinusitis Condition on Discharge: Good Health Concerns: In recovery from endometrial cancer. Activity: Resume your previous activity Non-emergency contact: Primary Care Provider and Oncologist Call non-emergency contact if: you have any medication questions, your symptoms worsen, your pain is not controlled, your pain is worsening, your pain is unusual for you, your pain is concerning for you, you have a fever, your temperature is above 101 and your temperature is above 101.5 Follow-up/Referrals: Caitlin Mehta PA-C [Primary Care Provider] - 06/21/19 1:50 pm (A follow up appt. has been made for you with Dr. Jocelyne Heart on at 1:50pm. They will arrange for PFT's as requested by your doctor here.) Diet: Carb Consistent or DM2, Heart Healthy and Low Sodium (2gm) Addtl Attending Provider Instructions: Start taking Chlorpheniramine 4 mg PO Q6hr as needed for congestion. Flonase 2 actuations in each nostril BID. Follow-up with oncology at your schedule appointment which is tomorrow. Pending Studies at Discharge: No Stand-Alone Forms: [facility], Smoking Cessation Medications and DC Order Prescriptions: New ipratropium-albuterol 0.5 mg-3 mg(2.5 mg base)/3 mL Solution For Nebulization 3 ml NEB Q4R Qty: 1 RF: 0 chlorpheniramine maleate 4 mg tablet 4 mg PO Q6H PRN (Reason: allergy symptoms) Qty: 60 RF: 0 sodium chloride [Saline Mist] 0.65 % aerosol,spray 2 sprays INTNAS QID PRN (Reason: dry nasal passages) Qty: 60 RF: 0 fluticasone propionate [Flonase Allergy Relief] 50 mcg/actuation spray,suspension 2 sprays INTNAS DAILY Qty: 36.4 RF: 0 Continued ondansetron HCl [Zofran] 8 mg tablet 8 mg PO TID PRN (Reason: Nausea) RF: 0 prochlorperazine maleate [Compazine] 10 mg tablet 10 mg PO Q8H PRN (Reason: Nausea) RF: 0 magnesium oxide 400 mg (241.3 mg magnesium) tablet 400 mg PO BID RF: 0 atorvastatin 10 mg Tablet 10 mg PO HS RF: 0 metformin 1,000 mg Tablet 1,000 mg PO BID RF: 0 hydrochlorothiazide 12.5 mg Capsule 12.5 mg PO QAM RF: 0 lisinopril 30 mg Tablet 30 mg PO QAM RF: 0 lorazepam 0.5 mg tablet 0.5 mg PO BID RF: 0 Discontinued Coricidin HBP Cough and Cold 4-30 mg Tablet 2 tab PO UD RF: 0 Discharge Orders: Discharge Order (Routine); Ordered 06/16/19 Ordered By: Mo Gasca Admission Data Admit Date/Time: 06/15/19 14:47 Attending Provider: Mo Gasca Admit Provider: Delmi Luna Primary Care Provider: Caitlin Mehta Other Providers: Delmi Luna
[2019-06-16 13:09] VITALS: PULSE 108
== END 2019-06-16 13:32 | disposition home or self-care (01) | DRG 153 ==
LOC: ED 10:53 → SUATTDRO 14:47 → 4W 14:47

== ENCOUNTER 2019-10-24 13:23 | Observation (INO) ==
[2019-10-24] MEDS ORDERED: SODIUM CHLORIDE 0.9% 1000ML 1,000 ML IV ONE (14:00)
[2019-10-24 14:07] LABS: Appearance Urine Clear (Clear); Bacteria Urine Automated Negative (Negative); Bilirubin Urine Negative (Negative); Blood Urine Trace (Negative); Color Urine Yellow; Epithelial Cell Urine Auto >30 /lpf (0-5); Glucose Urine UA Negative (Negative); Ketones Urine 2+ (Negative); Leukocyte Esterase Urine Negative (Negative); Nitrite Urine Negative (Negative); Specific Gravity Urine 1.016 (1.000-1.030); Urobilinogen Urine Negative (Negative); pH Urine 7.5 (4.5-7.5)
[2019-10-24 14:08] LABS: Protein Urine Negative (Negative); Sulfosalicylic Acid Urine Negative (Negative)
--- NOTE | 2019-10-24 14:16 | Emergency Department Note ---
History of Present Illness General Chief complaint: Illness Stated complaint: DIZZY, VOMITING, FALL, RIB PAIN History of Present Illness Maximum Pain Intensity: 10 This patient is a 63-year-old female who presents to the emergency department with slurred speech, unsteady gait, dizziness and vomiting for the last 4 days. The patient was reportedly evaluated at [facility] and admitted. Extensive blood work and imaging were performed. She was told that she may have had a mini stroke. She denies any abdominal pain. She has reported constipation. Her last bowel movement was yesterday and firm. No recent infectious symptoms. No new medications. No confusion noted. Home Medications Home Medications Medication Instructions Recorded Confirmed Type atorvastatin 10 mg PO HS 10/05/18 10/24/19 History hydrochlorothiazide 12.5 mg PO QAM 10/05/18 10/24/19 History lisinopril 30 mg PO QAM 10/05/18 10/24/19 History metformin [Glucophage] 1,000 mg PO BID 10/05/18 10/24/19 History sodium chloride [Saline Mist] 2 sprays INTNAS QID PRN #60 ml 06/16/19 10/24/19 Rx ipratropium-albuterol 3 ml NEB Q4R PRN 08/24/19 10/24/19 History amoxicillin-pot clavulanate 0 tab PO BID 10/24/19 10/24/19 History [Augmentin] chlorpheniramine maleate 4 mg PO Q6H PRN 10/24/19 10/24/19 History [ChlorTabs] diphenhydramine HCl [Benadryl] 25 mg PO Q6H PRN 10/24/19 10/24/19 History docusate sodium [Colace] 100 mg PO BID PRN 10/24/19 10/24/19 History lorazepam 0.5 mg PO TID PRN 10/24/19 10/24/19 History Allergies Allergy/AdvReac Type Severity Reaction Status Date / Time Iodinated Contrast Media Allergy Severe Swelling Verified 10/24/19 15:07 [Iodinated Contrast- Oral of and IV Dye] Lip/Tongue/Throat loratadine [From Claritin] Allergy Severe Anaphylaxis Verified 10/24/19 15:07 codeine Allergy Intermediate Tachycardia Verified 10/24/19 15:07 adhesive AdvReac Hives Verified 10/24/19 15:07 Past Med/Surg History Medical History Acute blood loss anemia (Inactive) Anemia Anxiety Diabetes mellitus, type 2 NIDDM Endometrial cancer Excessive vaginal bleeding (Inactive) History of kidney stones Hyperlipidemia Hypertension (Inactive) Hypomagnesemia (Acute) Perimenopausal menorrhagia Sixth nerve palsy of right eye SOB (shortness of breath) (Inactive) Vaginal bleeding Surgical History H/O: hysterectomy History of anesthesia reaction SLOW TO WAKE; AGGRESSIVE BEHAVIOR History of cystoscopy History of dilatation and curettage History of esophagogastroduodenoscopy (EGD) History of lithotripsy History of tubal ligation S/P laparoscopic assisted vaginal hysterectomy (LAVH) WITH BSO AND LYMPH NODE REMOVALS surgery 11-30-2018 Family History Aunt Family history of diabetes mellitus Grandmother (Maternal) Family history of diabetes mellitus Mother Shingles Lung cancer Cystic kidney disease Stroke Father , age 63 Heart disease had angina Gangrene Sister No problems noted. 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 Required: No Beliefs That Will Affect Care: None marital status: Single Current Living Situation: Family Current Living Situation Comment: Lives with son current occupational status: 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 Other Information That Helps Us Care for You: No Feels Safe at Home: Yes Safety Concerns: Feels Safe At This Time Smoking Status: Former smoker Tobacco Type: cigarettes ; Age Started Using Tobacco: 21 ; Cigarettes Per Day: 0-1/2 PPD; VARIES ; Do You Dip or Chew Tobacco: No ; Smoking End Date: 10/10/19, had previously quit in April but "fell off the wagon" ; Second Hand Exposure: No ; Hx Alcohol Use: No Hx Substance Use: No Review of Systems A total of 10 systems reviewed and were otherwise negative Physical Exam Vital Signs Vital Signs - 24 hr 10/24/19 13:26 10/24/19 16:00 10/24/19 18:45 Temperature 36.7 C 36.8 C Temperature Source Oral Oral Pulse Rate 83 Pulse Rate [Left] 80 88 Pulse Rhythm Regular Pulse Rhythm [Left] Regular Regular Pulse Strength Normal Pulse Strength [Left] Normal Normal Respiratory Rate 16 18 18 Respiratory Effort / Characteristics Non-Labored Non-Labored Spontaneous Non-Labored Spontaneous Respiratory Depth Normal Normal Normal Respiratory Pattern Regular Regular Blood Pressure 171/90 H Blood Pressure [Left Arm] 166/100 H 185/99 H Blood Pressure Mean 117 Blood Pressure Mean [Left Arm] 122 127 Blood Pressure Position Sitting Blood Pressure Position [Left Arm] Lying Lying Pulse Oximetry 97 97 95 Oxygen Delivery Method Room Air Room Air Room Air Sepsis Recent Fever Within 48 Hours No Sepsis Action Taken by Nursing No Action Required Constitutional WD/WN, vitals as above Eyes PERRL Difficulty with right gaze of the right eye. ENMT Oral mucosa slightly dry. Neck trachea midline Respiratory normal respiratory effort, lungs clear to auscultation Cardiovascular RRR, no murmur, no edema Gastrointestinal (Abdomen) normal bowel sounds, soft, nontender, no hepatosplenomegaly Musculoskeletal no cyanosis or clubbing, extremities motor strength 5/5 Skin no rashes, warm and dry Neurologic Alert and oriented x3. Slurred speech noted. No focal motor deficits noted. No facial droop noted. Extraocular muscle deficit on the right noted. Difficulty with [id number]. Psychiatric Acting appropriately Course Course Patient was seen and examined Vital signs including blood pressure were reviewed medications list was verified with patient Labs were obtained, and a saline lock was established Imaging and medications ordered Upon reevaluation, the patient was resting comfortably. We discussed her results. She voiced understanding, and was in agreement with disposition. I spoke with the hospitalist service. They kindly agreed to evaluate the patient for possible inpatient management. The patient remained stable while in the emergency department. Consultations Consultation #1: Dr. Luna Administered Medications Acetaminophen (Tylenol) 650 mg PO Q4H PRN PRN Reason: Pain or Fever Stop: 11/23/19 19:58 Last Admin: 10/25/19 11:11 Dose: 650 mg Documented by: [id number] Admin: 10/25/19 06:41 Dose: 650 mg Documented by: [id number] Admin: 10/24/19 21:12 Dose: 650 mg Documented by: [id number] Amoxicillin/Clavulanate Potassium (Augmentin 500mg) 1 tab PO BID [facility] Stop: 11/03/19 20:59 Last Admin: 10/25/19 08:12 Dose: 1 tab Documented by: [id number] Admin: 10/24/19 21:14 Dose: 1 tab Documented by: [id number] Atorvastatin Calcium (Lipitor) 10 mg PO HS [facility] Stop: 11/23/19 20:59 Last Admin: 10/24/19 21:14 Dose: 10 mg Documented by: [id number] Gadobutrol (Gadavist 7.5ml) 6 ml IV ONCE PRN PRN Reason: Interaction Checking Stop: 10/28/19 15:41 Last Admin: 10/24/19 15:42 Dose: 6 ml Documented by: [id number] Hydrochlorothiazide (Hctz) 12.5 mg PO QAM [facility] Stop: 11/24/19 08:59 Last Admin: 10/25/19 08:12 Dose: 12.5 mg Documented by: [id number] Potassium Chloride/Sodium Chloride (Normal Saline W/20 Meq Kcl) 20 meq in 1,000 mls @ 80 mls/hr IV .[id number] [facility] Stop: 11/23/19 20:29 Last Admin: 10/25/19 08:12 Dose: 80 mls/hr Documented by: [id number] Infusion: 10/25/19 08:12 Dose: 80 mls/hr Documented by: [id number] Admin: 10/24/19 21:03 Dose: 80 mls/hr Documented by: [id number] Insulin Aspart (Novolog Flexpen) 0 units SC ACHS [facility] Stop: 11/23/19 20:59 Last Admin: 10/25/19 12:08 Dose: Not Given Documented by: [id number] Cosigned by: [id number] Admin: 10/25/19 08:12 Dose: Not Given Documented by: [id number] Cosigned by: [id number] Admin: 10/24/19 21:20 Dose: Not Given Documented by: [id number] Cosigned by: [id number] Lisinopril (Zestril) 30 mg PO QAM [facility] Stop: 11/24/19 08:59 Last Admin: 10/25/19 08:12 Dose: 30 mg Documented by: [id number] Lorazepam (Ativan) 0.5 mg PO TID PRN PRN Reason: anxiety Stop: 11/23/19 20:59 Last Admin: 10/24/19 21:14 Dose: 0.5 mg Documented by: [id number] Ondansetron HCl (Zofran) 4 mg IV Q6H PRN PRN Reason: Nausea Stop: 11/23/19 19:58 Last Admin: 10/25/19 12:08 Dose: 4 mg Documented by: [id number] Discontinued Medications Sodium Chloride (Nss 1000ml) 1,000 mls @ 999 mls/hr IV .Q1H1M ONE Stop: 10/24/19 15:00 Last Infusion: 10/24/19 16:57 Dose: 0 mls/hr Documented by: [id number] Admin: 10/24/19 14:49 Dose: 999 mls/hr Documented by: [id number] Potassium Phosphate 6 mmol/ (Sodium Chloride) 252 mls @ 88 mls/hr IV NOW STA Stop: 10/24/19 23:12 Last Infusion: 10/25/19 00:24 Dose: 0 mls/hr Documented by: [id number] Admin: 10/24/19 21:02 Dose: 88 mls/hr Documented by: [id number] Medical Decision Making Medical Records Attestation: I reviewed the patient's medical records. Home Medications Current Medication List: was personally reviewed by me Laboratory Data Attestation: I reviewed the patient's lab results. Result diagrams: 10/25/19 05:26 10/25/19 05:26 Lab Results 10/24/19 10/24/19 10/24/19 Range/Units 13:45 14:26 14:26 WBC 9.76 (4.8-10.8) K/uL RBC 3.62 L (4.2-5.4) M/uL Hgb 10.6 L (12.0-16.0) g/dL Hct 31.5 L (37-47) % MCV 87.0 (80-100) fL MCH 29.3 (25-34) pg MCHC 33.7 (32-36) g/dL RDW Std Deviation 45.0 (36.4-46.3) fL RDW Coeff of Gracy 14.1 (11.5-14.5) % Plt Count 444 H (130-400) K/uL MPV 8.0 (7.4-10.4) fL Immature Gran % (Auto) 0.3 % Neut % (Auto) 81.2 % Lymph % (Auto) 10.8 % [place] % (Auto) 6.9 % Eos % (Auto) 0.7 % Baso % (Auto) 0.1 % Immature Gran # (Auto) 0.03 H (0.00-0.02) K/uL Neut # (Auto) 7.93 H (1.4-6.5) K/uL Lymph # (Auto) 1.05 L (1.2-3.4) K/uL [place] # (Auto) 0.67 H (0.11-0.59) K/uL Eos # (Auto) 0.07 (0-0.5) K/uL Baso # (Auto) 0.01 (0-0.2) K/uL Sodium 130 L (136-145) mmol/L Potassium 3.4 L (3.5-5.1) mmol/L Chloride 97 L (98-107) mmol/L Carbon Dioxide 25 (21-32) mmol/L Anion Gap 8.0 (3-11) BUN 10 (7-18) mg/dl Creatinine 0.62 (0.6-1.2) mg/dl Est Cr Clr Drug Dosing Not Reportable Est GFR ( Amer) 112.0 Est GFR (Non-Af Amer) 96.6 BUN/Creatinine Ratio 17.0 (10-20) Glucose 175 H (70-99) mg/dl Calcium 9.1 (8.5-10.1) mg/dl Total Bilirubin 0.4 (0.2-1) mg/dl AST 12 L (15-37) U/L ALT 11 L (12-78) U/L Alkaline Phosphatase 95 (45-117) U/L Total Protein 7.9 (6.4-8.2) gm/dl Albumin 3.0 L (3.4-5.0) gm/dl Globulin 4.9 H (2.5-4.0) gm/dl Albumin/Globulin Ratio 0.6 L (0.9-2) Urine Color Yellow Urine Appearance Clear (Clear) Urine pH 7.5 (4.5-7.5) Ur Specific [place] 1.016 (1.000-1.030) Urine Protein Negative (Negative) Urine Glucose (UA) Negative (Negative) Urine Ketones 2+ H (Negative) Urine Blood Trace H (Negative) Urine Nitrite Negative (Negative) Urine Bilirubin Negative (Negative) Urine Urobilinogen Negative (Negative) Ur Leukocyte Esterase Negative (Negative) Urine WBC (Auto) 1-5 (0-5) /hpf Urine RBC (Auto) 5-10 H (0-4) /hpf U Hyaline Cast (Auto) 1-5 (0-5) /lpf U Epithel Cells (Auto) >30 H (0-5) /lpf Urine Bacteria (Auto) Negative (Negative) Imaging Data Attestation: I personally reviewed and interpreted this imaging study as follows: Radiologist's Impression: MRI brain with and without contrast 1. No acute process. 2. Moderate findings of atrophy and chronic small vessel change of aging. 3. No change compared to the prior study ACT 112: Negative or not required by law. The above report was generated using voice recognition software. It may contain grammatical, syntax or spelling errors. Electronically signed by: Bobby Leigh M.D. 10/24/2019 4:20 PM Dictated: 10/24/19 161 Transcribed: 10/24/19 161 [facility] Narrative Differential diagnosis: CVA, metastatic disease, adverse drug reaction, in fectious etiology, inflammatory disease, vertigo, among others This patient is a 63-year-old female who presents to the emergency department with neurologic symptoms as noted above for the last several days. On exam, slurred speech was noted. Right eye findings are chronic. Vital signs were stable. Her abdomen was benign. Labs are significant for hyponatremia. Otherwise, they were fairly unremarkable. I was concerned for possible metastatic disease. I reviewed her records from her recent admission to [facility]. A CT of the head and abdomen/pelvis were performed. No acute abnormalities were noted. We proceeded with an MRI in the emergency department today. No signs of CVA or other intracranial abnormality. The etiology of her symptoms is unclear. Encephalopathy secondary to hyponatremia is a possibility. I do not feel comfortable sending the patient home due to the fact that she was very unsteady on her feet. The patient will be evaluated by the hospitalist service for possible inpatient management Impression & Plan Stroke-like symptoms, Acute hyponatremia Discharge Plan Visit Data *Final* Discharge Date/Time: 10/24/19 19:39 Chief Complaint: Illness Stated Complaint: DIZZY, VOMITING, FALL, RIB PAIN ED Provider: Taz Roman ED Midlevel Provider: Karo Lopez Discharge Problem: Stroke-like symptoms, Acute hyponatremia Patient Disposition: Admitted As Inpatient Discharge Instructions Interventions: ED Discharge Assessment Last Done: 10/24/19 19:39
[2019-10-24 14:35] LABS: Basophils # (auto) 0.01 K/uL (0-0.2); Basophils % (auto) 0.1 %; Eosinophils # (auto) 0.07 K/uL (0-0.5); Eosinophils % (auto) 0.7 %; Hematocrit (blood only) 31.5 % (37-47); Hemoglobin 10.6 g/dL (12.0-16.0); Immature Granulocytes # (auto) 0.03 K/uL (0.00-0.02); Immature Granulocytes % (auto) 0.3 %; Lymphocytes # (auto) 1.05 K/uL (1.2-3.4); Lymphocytes % (auto) 10.8 %; Mean Corpuscular Hemoglobin 29.3 pg (25-34); Mean Corpuscular Hgb Conc 33.7 g/dL (32-36); Monocytes # (auto) 0.67 K/uL (0.11-0.59); Monocytes % (auto) 6.9 %; Neutrophils # (auto) 7.93 K/uL (1.4-6.5); Neutrophils % (auto) 81.2 %; Platelet Count 444 K/uL (130-400); RDW Coefficient of Variation 14.1 % (11.5-14.5); Red Blood Count 3.62 M/uL (4.2-5.4); White Blood Count 9.76 K/uL (4.8-10.8)
[2019-10-24 14:52] LABS: Alanine Aminotransferase 11 U/L (12-78); Aspartate Aminotransferase 12 U/L (15-37); Blood Urea Nitrogen 10 mg/dl (7-18); Calcium 9.1 mg/dl (8.5-10.1); Carbon Dioxide 25 mmol/L (21-32); Chloride 97 mmol/L (98-107); Est GFR (Non-African American) 96.6; Glucose 175 mg/dl (70-99); Potassium 3.4 mmol/L (3.5-5.1); Sodium 130 mmol/L (136-145)
[2019-10-24 14:55] LABS: Albumin Globulin Ratio 0.6 (0.9-2); Alkaline Phosphatase 95 U/L (45-117); Bilirubin,Total 0.4 mg/dl (0.2-1); Globulin 4.9 gm/dl (2.5-4.0); Total Protein 7.9 gm/dl (6.4-8.2)
--- NOTE | 2019-10-24 15:03 | Electrocardiogram Report ---
Test Reason : Blood Pressure : / mmHG Vent. Rate : 073 BPM Atrial Rate : 073 BPM P-R Int : 208 ms QRS Dur : 074 ms QT Int : 430 ms P-R-T Axes : 075 047 060 degrees QTc Int : 473 ms Normal sinus rhythm with sinus arrhythmia Septal infarct (cited on or before 24-OCT-2019) Abnormal ECG When compared with ECG of 24-AUG-2019 09:32, Nonspecific T wave abnormality no longer evident in Lateral leads Confirmed by Dae Wilson ([id number]) on 10/24/2019 3:02:46 PM Referred By: REFERRED SELF Confirmed By:Dae Wilson
[2019-10-24] MEDS ORDERED: GADOBUTROL 7.5ML VIAL IV PRN (15:42)
--- NOTE | 2019-10-24 16:22 | Magnetic Resonance Report ---
MR brain wo/w con CLINICAL HISTORY: new slurred speech, vomiting unsteady gait mental status change COMPARISON STUDY: 08/24/2019 TECHNIQUE: Utilizing a 1.5 Teri magnet and dedicated coil, multiplanar, multiecho imaging of the br ain was performed pre and postcontrast administration. IV administration of 8 mL of Gadavist contras t was uneventful. FINDINGS: Diffusion images show no evidence for an acute ischemic process. There are multiple foci of increased signal within the periventricular deep white matter regions. The se are unchanged from the prior exam. They're most consistent with that of chronic small vessel davies e combined with atrophy. Postcontrast images are considered negative for enhancing lesion. IMPRESSION: 1. No acute process. 2. Moderate findings of atrophy and chronic small vessel change of aging. 3. No change compared to the prior study ACT 112: Negative or not required by law. The above report was generated using voice recognition software. It may contain grammatical, syntax or spelling errors. Electronically signed by: Bobby Leigh M.D. 10/24/2019 4:20 PM
--- NOTE | 2019-10-24 19:02 | History & Physical Report ---
Date of Service October 24, 2019 Assessment & Plan (1) Stroke-like symptoms: Slurred speech, ambulatory dysfxn Sx since Obs at [facility] with CT head neg and ongoing sx MRI neg Neuro c/s pending TSH not checked, pending Lyme, B12, folate pending Mild hypoNa, hypoK seem unlikely to be causing UA neg for acute BS 175 (2) Hypokalemia: Replace and monitor (3) Hyponatremia: Mild, 130 Monitor (4) Dental abscess: Continue augmentin Supposed to have teeth removed, however on hold due to COVID Has had two prior courses of augmentin with sx returning (5) Sixth nerve palsy of right eye: Seen by neuro prior Ongoing issue MRI neg at initial onset and again on admission (6) Malignant neoplasm of endometrium: Last chemo 04/2019 Last radiation 05/2019 No current tx CTAP noted for possible lymphoma t/c onc c/s (7) DM type 2 (diabetes mellitus, type 2): continue home meds SSI PRN A1c pending (8) DVT prophylaxis: SCDs (9) HTN (hypertension): continue home meds (10) Anxiety: continue home meds (11) Hyperlipidemia: continue home meds History of Present Illness Primary Care Provider: Richie Edmond, DO 63 y/o F c/o slurred speech and falls. Pt states that she was eating a fish sandwich at [facility] on 10/19 when she had sudden onset of emesis. This continued for some time and she describes this as "severe". It was shortly after this that pt started to have slurred speech. This has been ongoing. On Thursday, pt started to have issues with her balance and she fell into the side of her bath tub while trying to change her pants. She had pain to her ribs where she landed and was seen in the ED at [facility]. She said she had XR that were negative and she was sent home. She states that she was "delirious" on Thursday night and went to bed. She states she just rested on Thursday and "did not move". But later that night, she started to have vomiting again. She was unable to walk and fell. She was lightheaded. She denies LOC. She did not eat anything and no emesis that day. She went via ambulance to [facility]. She was having abd pain as well and a CTAP was noted for constipation, so she had an enema and a liquid for this. She states she has had several bowel movements, but they have all been liquid. Her abd pain is better now that she has passed gas. Pt had a CT head that was neg. Her sodium was 130. She states her other sx of slurred speech and lightheadedness/balance issues were not better. She was d/c'd home with outpt f/u. Pt denies fever, SOB, chest pain, LE pain or swelling. She did try to eat this AM and had emesis. She continues to have slurred speech and balance issue. She fell today. No LOC. Pt woke up on 08/19 with her eyes crossed. She was seen by neuro and had MRI. She states she was told this was related to her DM and it would resolve over time. She states it is not improved. Pt states she has two dental abscesses. She has been on augmentin x2 with improvement during abx tx, but then sx return. She was seen by her dentist after a third occurrence and told that she would need to have teeth removed, however this happened just prior to dental offices closing due to COVID. Because of this, she was started on augmentin again on 10/17. She stopped it on 10/19 when she started to have these new sx. Allergies Allergy/AdvReac Type Severity Reaction Status Date / Time Iodinated Contrast Media Allergy Severe Swelling Verified 10/24/19 15:07 [Iodinated Contrast- Oral of and IV Dye] Lip/Tongue/Throat loratadine [From Claritin] Allergy Severe Anaphylaxis Verified 10/24/19 15:07 codeine Allergy Intermediate Tachycardia Verified 10/24/19 15:07 adhesive AdvReac Hives Verified 10/24/19 15:07 Home Medications Home Medications Medication Instructions Recorded Confirmed Type atorvastatin 10 mg PO HS 10/05/18 10/24/19 History hydrochlorothiazide 12.5 mg PO QAM 10/05/18 10/24/19 History lisinopril 30 mg PO QAM 10/05/18 10/24/19 History metformin [Glucophage] 1,000 mg PO BID 10/05/18 10/24/19 History lorazepam 0.5 mg tablet 0.5 mg PO BID 05/04/19 10/24/19 History sodium chloride [Saline Mist] 2 sprays INTNAS QID PRN #60 ml 06/16/19 10/24/19 Rx ipratropium-albuterol 3 ml NEB Q4R PRN 08/24/19 10/24/19 History amoxicillin-pot clavulanate 0 tab PO BID 10/24/19 10/24/19 History [Augmentin] chlorpheniramine maleate 4 mg PO Q6H PRN 10/24/19 10/24/19 History [ChlorTabs] diphenhydramine HCl [Benadryl] 25 mg PO Q6H PRN 10/24/19 10/24/19 History docusate sodium [Colace] 100 mg PO BID PRN 10/24/19 10/24/19 History Past Med/Surg History Medical History Acute blood loss anemia (Inactive) Anemia Anxiety Diabetes mellitus, type 2 NIDDM Endometrial cancer Excessive vaginal bleeding (Inactive) History of kidney stones Hyperlipidemia Hypertension (Inactive) Hypomagnesemia (Acute) Perimenopausal menorrhagia Sixth nerve palsy of right eye SOB (shortness of breath) (Inactive) Vaginal bleeding Surgical History H/O: hysterectomy History of anesthesia reaction SLOW TO WAKE; AGGRESSIVE BEHAVIOR History of cystoscopy History of dilatation and curettage History of esophagogastroduodenoscopy (EGD) History of lithotripsy History of tubal ligation S/P laparoscopic assisted vaginal hysterectomy (LAVH) WITH BSO AND LYMPH NODE REMOVALS surgery 11-30-2018 Family History Aunt Family history of diabetes mellitus Grandmother (Maternal) Family history of diabetes mellitus Mother Shingles Lung cancer Cystic kidney disease Stroke Father , age 63 Heart disease had angina Gangrene Sister No problems noted. Sister Mental health problem Sister , in her 50 ` s Heart disease Myocardial infarction Brother Arthritis Brother Arthritis Mental health disorder Daughter Endometriosis Anxiety Fibromyalgia Son Anxiety Heart palpitations from anxiety Arthritis Depression PTSD (post-traumatic stress disorder) Back problem Grandfather (Maternal) Head and neck cancer Social History Preferred Language: Azeri Communication Ability: Effective Visual Impairment: No Limitations Hearing Ability: Normal Horticultural Worker Required: No Beliefs That Will Affect Care: None marital status: Single Current Living Situation: Spouse Current Living Situation Comment: SON LIVES W/ PT 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 occupational status: 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 Feels Safe at Home: Yes Smoking Status: Never smoker Tobacco Type: cigarettes ; Age Started Using Tobacco: 21 ; Cigarettes Per Day: 0-1/2 PPD; VARIES ; Second Hand Exposure: No ; Hx Alcohol Use: No Hx Substance Use: No Review of Systems Review of Systems: Pertinent positives and negatives reviewed in HPI--all others negative Physical Exam Constitutional: WD/WN, vitals as above Eyes: normal visual palacios by confrontation and + anicteric sclerae Neck: normal visual inspection and trachea midline Respiratory: normal respiratory effort, lungs clear to auscultation Cardiovascular: Rate/Rhythm: regular rate and regular rhythm Gastrointestinal (Abdomen): Inspection/Auscultation: abdomen not distended Percussion/Palpation: abdomen soft; abdomen nontender Musculoskeletal: Head/Neck/Chest: normocephalic and head atraumatic negative for edema, peripheral pulses intact Skin: no rashes, warm and dry Neurologic: CN's II-XI intact bilaterally and awake; not confused Speech / Cognition: + abnormal speech (slurring speech) Psychiatric: A+Ox3, euthymic affect Results & Data Results & Data ([facility]) Vital Signs (Past 12 Hours) Vital Signs Temp Pulse Pulse Resp BP BP Pulse Ox 10/24/19 18:45 36.8 C 88 18 185/99 H 95 10/24/19 16:00 80 18 166/100 H 97 10/24/19 13:26 36.7 C 83 16 171/[address] head: neg for acute (JCB 10/21) CTAP: constipation, possible retroperitoneal/pelvic adenopathy, t/c lymphoma (JCB 10/21) MRI: neg for acute ECG Rhythm: normal sinus Code Status & VTE Plan Code Status Full code VTE Prophylaxis Plan VTE Prophylaxis will be ordered: Yes PG Care Time/CCT Total # of Minutes Spent Total Time Spent with Patient: Total time spent is greater than 50% in coordination of care (as documented) at patient's floor/unit and/or counseling patient: Coding Level of Care Code 84386 OBS Care - Level 3 Diagnoses Stroke-like symptoms R29.90 Hypokalemia E87.6 Hyponatremia E87.1 Dental abscess K04.7 Sixth nerve palsy of right eye H49.21 Malignant neoplasm of endometrium C54.1 DM type 2 (diabetes mellitus, type 2) E11.9 DVT prophylaxis Z29.9 HTN (hypertension) I10 Anxiety F41.9 Hyperlipidemia E78.5
[2019-10-24] MEDS ORDERED: ALBUT/IPRATROP 3MG/0.5MG NEB 3 ML VIAL NEB PRN (19:59)
[2019-10-24] MEDS ORDERED: GLUCOSE 10 TABS/TUBE PO PRN (19:59)
[2019-10-24] MEDS ORDERED: CHLORPHENIRAMINE MALEATE 4 MG PO PRN (19:59)
[2019-10-24] MEDS ORDERED: GLUCAGON FOR INJ 1 MG VIAL SQ PRN (19:59)
[2019-10-24] MEDS ORDERED: MAGNESIUM HYDROXIDE SUSP 30 ML UDC PO PRN (19:59)
[2019-10-24] MEDS ORDERED: GLUCOSE 40% GEL 15 GM TUBE PO PRN (19:59)
[2019-10-24] MEDS ORDERED: DOCUSATE SODIUM 100 MG CAP PO PRN (19:59)
[2019-10-24] MEDS ORDERED: DEXTROSE 50% 50 ML SYRINGE IV PRN (19:59)
[2019-10-24] MEDS ORDERED: SODIUM CHLORIDE 0.65% NA SOLN 45 ML (OCEAN) PRN (19:59)
[2019-10-24] MEDS ORDERED: CARBOHYDRATES FOR HYPOGLYCEMIA PO PRN (19:59)
[2019-10-24] MEDS ORDERED: POTASSIUM PHOS 3 MMOL/1 ML INFUSION IV STA (19:59)
[2019-10-24] MEDS ORDERED: ONDANSETRON INJ 2 MG/ML 2 ML VIAL IV PRN (19:59)
[2019-10-24] MEDS ORDERED: POTASSIUM PHOSPHATE 6 MMOL in SODIUM CHLORIDE 0.9% 250 ML IV STA (20:21)
[2019-10-24] MEDS ORDERED: METFORMIN HCL 500 MG TAB PO SCH (21:00)
[2019-10-24] MEDS: NSS + 20MEQ KCL 20 MEQ/1,000 ML BAG IV SCH (21:03)
[2019-10-24] MEDS: ACETAMINOPHEN 325 MG TAB PO PRN (21:12)
[2019-10-24] MEDS: AMOXICILLIN/CLAVULANATE 500 MG TAB PO SCH (21:14)
[2019-10-24] MEDS: ATORVASTATIN 10 MG TAB PO SCH (21:14)
[2019-10-24] MEDS: LORazepam 0.5 MG TAB PO PRN (21:14)
[2019-10-24] MEDS: INSULIN ASPART 100 UNITS/ML 3 ML PEN SC SCH (21:20)
[2019-10-24 21:24] LABS: Folate (Folic Acid) 15.57 ng/ml (>5.38)
[2019-10-24 21:37] LABS: Lyme Ab IgG w/WB Rflx Negative (Negative); Lyme Ab IgM w/WB Rflx Negative (Negative)
[2019-10-25] MEDS ORDERED: HEPARIN 100 UNIT/ML 5ML FLUSH FLUSH PRN (01:46)
[2019-10-25 05:37] LABS: Basophils # (auto) 0.01 K/uL (0-0.2); Basophils % (auto) 0.1 %; Eosinophils # (auto) 0.15 K/uL (0-0.5); Eosinophils % (auto) 1.9 %; Hematocrit (blood only) 32.3 % (37-47); Hemoglobin 10.7 g/dL (12.0-16.0); Immature Granulocytes # (auto) 0.02 K/uL (0.00-0.02); Immature Granulocytes % (auto) 0.3 %; Lymphocytes # (auto) 1.32 K/uL (1.2-3.4); Lymphocytes % (auto) 16.6 %; Mean Corpuscular Hgb Conc 33.1 g/dL (32-36); Mean Corpuscular Volume 87.5 fL (80-100); Mean Platelet Volume 7.9 fL (7.4-10.4); Monocytes % (auto) 10.1 %; Neutrophils # (auto) 5.63 K/uL (1.4-6.5); Platelet Count 423 K/uL (130-400); RDW Standard Deviation 44.8 fL (36.4-46.3); Red Blood Count 3.69 M/uL (4.2-5.4); White Blood Count 7.93 K/uL (4.8-10.8)
[2019-10-25 05:52] LABS: Estimated Average Glucose 177 mg/dl; Hemoglobin A1C 7.8 % (4.5-5.6)
[2019-10-25 06:08] LABS: BUN Creatinine Ratio 12.5 (10-20); Calcium 9.4 mg/dl (8.5-10.1); Creatinine Clr Calc Pharmacy 87.9 ml/min; Est GFR (African American) 115.2; Est GFR (Non-African American) 99.4; Potassium 3.4 mmol/L (3.5-5.1)
[2019-10-25] MEDS: ACETAMINOPHEN 325 MG TAB PO PRN ×3 (06:41→18:09)
[2019-10-25] MEDS: lisinopriL 10 MG TAB PO SCH (08:12)
[2019-10-25] MEDS: INSULIN ASPART 100 UNITS/ML 3 ML PEN SC SCH ×4 (08:12→20:29)
[2019-10-25] MEDS: AMOXICILLIN/CLAVULANATE 500 MG TAB PO SCH ×2 (08:12→20:27)
[2019-10-25] MEDS: NSS + 20MEQ KCL 20 MEQ/1,000 ML BAG IV SCH ×2 (08:12→20:33)
[2019-10-25] MEDS ORDERED: hydroCHLOROthiazide 25 MG TAB PO SCH (09:00)
--- NOTE | 2019-10-25 16:13 | Hospitalist Progress Note ---
Date of Service October 25, 2019 Assessment & Plan (1) Stroke-like symptoms: Unclear etiology of slurred speech, nausea, and ambulatory dysfunction. - MRI on 10/24/2019 did not show an acute infarct, but did show moderate findings of atrophy and chronic small vessel change of aging. - Seen by neurology who felt this could be due to orthostasis vs. BPPV or combination. - TSH, Lyme, B12, & folate are all normal. - Thiamine (B1) is still pending. (2) Dental abscess: Supposed to have teeth removed, however on hold due to COVID. Has had two prior courses of Augmentin with sx returning. - Continue Augmentin (3) Sixth nerve palsy of right eye: Seen by neuro prior and was thought to be due to her diabetes. She was seen by neurology and ophthalmology; however, has not really had a formal plan going forward. Bought her own eye patch, does not have exercises for her eye, no prism glasses. - Ongoing issue -> Will need to follow up with ophthalmology for further care (4) Malignant neoplasm of endometrium: Last chemo in 04/2019; last radiation in 05/2019. No current tx. - Will discuss with Dr. Riojas for repeat imaging (5) DM type 2 (diabetes mellitus, type 2): A1c was 7.8% this admission. - Sliding scale insulin - Blood sugars have been satisfactory today. (6) HTN (hypertension): BP elevated today up to 170/80 as she has missed her medications for the last few days. - Continue home lisinopril - Hold HCTZ for hyponatremia and hypokalemia (7) Anxiety: No current issues. - Continue home meds (8) Hyperlipidemia: - Continue home meds (9) DVT prophylaxis: SCDs Admission and Anticipated Discharge Date Admission Date: October 24, 2019 Subjective Feeling some better. Was able to eat some without nausea. Reports no fevers/chills, chest pain, shortness of breath, abdominal pain. Physical Exam Constitutional: WD/WN, vitals as above Eyes: EOM intact bilaterally; no conjunctival abnormality ENMT: external ear and nose normal, oropharynx normal Neck: trachea midline, no thyromegaly normal visual inspection Respiratory: normal respiratory effort, lungs clear to auscultation no respiratory distress Cardiovascular: RRR, no murmur, no edema Gastrointestinal (Abdomen): Inspection/Auscultation: abdomen normal to inspection; abdomen not distended Musculoskeletal: no cyanosis or clubbing, extremities motor strength 5/5 Skin: no rashes, warm and dry Neurologic: moves all extremities and awake Speech / Cognition: + abnormal speech (Slow, deliberate); normal cognition Cranial Nerves: tongue midline Psychiatric: Orientation: alert, oriented to person and cooperative Results & Data Results & Data ([facility]) Vital Signs (Past 12 Hours) Vital Signs Temp Pulse Pulse Resp BP BP Pulse Ox 10/25/19 15:25 36.5 C 70 18 171/82 H 96 10/25/19 12:33 36.4 C L 59 L 18 173/82 H 93 10/25/19 10:36 70 177/75 H 10/25/19 07:34 67 10/25/19 06:52 36.7 C 76 18 191/96 H 95 10/25/19 04:20 36.6 C 77 20 174/76 H 95 PG Care Time/CCT Total # of Minutes Spent Total Time Spent with Patient: Total time spent is greater than 50% in coordination of care (as documented) at patient's floor/unit and/or counseling patient: Coding Level of Care Code 49199 Subseq Hosp Care Lvl 3 Diagnoses Stroke-like symptoms R29.90 Dental abscess K04.7 Sixth nerve palsy of right eye H49.21 Malignant neoplasm of endometrium C54.1 DM type 2 (diabetes mellitus, type 2) E11.9 HTN (hypertension) I10 Anxiety F41.9 Hyperlipidemia E78.5 DVT prophylaxis Z29.9
[2019-10-25] MEDS: ONDANSETRON INJ 2 MG/ML 2 ML VIAL IV PRN ×2 (16:27→20:23)
--- NOTE | 2019-10-25 17:10 | Neurology Consultation ---
Date of Consultation October 25, 2019 Assessment & Plan (1) Acute hyponatremia: (2) DM type 2 (diabetes mellitus, type 2): (3) Sixth nerve palsy of right eye: Leslie Lucio is a 63 yo woman w/ PMH of DM, HTN, HLD, h/o endometrial cancer s/p MARTIN/BSO and carboplatin/taxol/vaginal brachytherapy/radiation, anxiety on benzos, recent tooth abscess and recent right CN6 palsy who p/t [facility] after having dizziness, nausea/vomiting, worsening gait and increased blurry vision/diplopia. # CN6 palsy: appears to be stable since she was seen by GARCÍA Larson, and Dr Petit in clinic last month. Has not done the appropriate therapy/treatment for this. - recommend that she contact her ophtho at [facility] to ask about prism glasses - encouraged her to wear the eye patch for a few hours each day and obtain exercises from ophtho regarding eye strengthening activities - continue eye drops as recommended - encouraged better diabetes control as the original palsy was likely 2/2 diabetes - if no improvement with the above treatment options, would consider LP as an outpatient to r/o leptomeningeal carcinomatosis (though no abnormal enhancement currently seen on MRI brain) # Dizziness: most likely multifactorial in the setting of dehydration from viral GI illness, multiple electrolyte abnormalities, new anemia since 07/2019, and what appears to be left BPPV (did not perform full [place]-Halpike as she noted severe nausea). Anticipate that this will improve as her other illness improves. - recommend zofran prn for nausea - continue to treat dehydration with IVFs as already doing - recommend PT eval for [place]-Halpike (after anti-emetic) and possible Eppley maneuver - may need walker and outpatient PT depending on PT eval (with gait training) Thank you for this interesting consult. Plan of care discussed with primary team. Please call or text with questions. (4) Dizziness: (5) Gait abnormality: History of Present Illness Attending Physician: Kemal Matias MD History of Present Illness Leslie Lucio is a 63 yo woman w/ PMH of DM, HTN, HLD, h/o endometrial cancer s/p MARTIN/BSO and carboplatin/taxol/vaginal brachytherapy/radiation, anxiety on benzos, recent tooth abscess and recent right CN6 palsy who p/t [facility] after having dizziness, nausea/vomiting, worsening gait and increased blurry vision/diplopia. She reports that she was at her baseline health until last Wednesday 10/18 when she had acute onset of nausea/vomiting after eating a fish sandwich at [employer]. She went home and continued to have this for the next few days. On Thursday, she woke up and reports feeling very dizzy upon standing. She reports having minimal PO intake prior to this with frequent vomiting. She had a fall due to dizziness; went to OSH where she was told there were no broken bones and discharged home. Continued to have N/V and dizziness, with new sensation that "cotton balls" were in her mouth making her speech sound off, so re-presented to OSH. Had CT A/P that showed constipation, so was given an enema with liquid BMs noted. CTH was reportedly normal at OSH. She reports that she was discharged home without improvement in symptoms, so presented to [facility] on 10/24/19. In the ED, she was noted to be afebrile, BP 171/90, HR 83, RR 16, satting 97% on room air. Labs notable for WBC 7.93, Hb 10.7 (down from 12.0 in 07/2019), Plts 423, Na 130, K 3.4, Cr 0.57, glucose 112, B12 821, TSH WNL, folate WNL, Lyme negative, thiamine pending. EKG showed NSR with septal infarct (chronic). She had a repeat MRI brain with contrast which on independent review shows stable SVID, no abnormal enhancement, moderate generalized atrophy and no clear change from MRI brain in 07/2019. She was admitted for further workup. On evaluation today, she reports that the dizziness is a sensation of both room spinning and lightheadedness like she is going to pass out. Dizziness is brought on only by standing or walking around; denies dizziness when she is sitting or lying down. There is no associated nausea, vomiting or true gait abnormality a/w dizziness. Denies any recent hearing changes. Does note that her vision has been blurrier the past few weeks since she was diagnosed with CN 6 palsy. Does note ongoing horizontal diplopia that is worse when looking right. Of note, on examination, she has left beating nystagmus and reports that looking left can make her dizziness worse. She reports having baseline neuropathy in hands/feet since having chemotherapy that she believes has been slowly improving. She reports having seen ophtho at [facility]; she was not given an eye patch or prism glasses. Does not recall them discussing any PT or eye exercises, or how to use the eye patch for her CN 6 palsy. Did buy her own eye patch but has not been using it. Allergies Allergy/AdvReac Type Severity Reaction Status Date / Time Iodinated Contrast Media Allergy Severe Swelling Verified 10/24/19 15:07 [Iodinated Contrast- Oral of and IV Dye] Lip/Tongue/Throat loratadine [From Claritin] Allergy Severe Anaphylaxis Verified 10/24/19 15:07 codeine Allergy Intermediate Tachycardia Verified 10/24/19 15:07 adhesive AdvReac Hives Verified 10/24/19 15:07 Home Medications Home Medications Medication Instructions Recorded Confirmed Type atorvastatin 10 mg PO HS 10/05/18 10/24/19 History hydrochlorothiazide 12.5 mg PO QAM 10/05/18 10/24/19 History lisinopril 30 mg PO QAM 10/05/18 10/24/19 History metformin [Glucophage] 1,000 mg PO BID 10/05/18 10/24/19 History sodium chloride [Saline Mist] 2 sprays INTNAS QID PRN #60 ml 06/16/19 10/24/19 Rx ipratropium-albuterol 3 ml NEB Q4R PRN 08/24/19 10/24/19 History amoxicillin-pot clavulanate 0 tab PO BID 10/24/19 10/24/19 History [Augmentin] chlorpheniramine maleate 4 mg PO Q6H PRN 10/24/19 10/24/19 History [ChlorTabs] diphenhydramine HCl [Benadryl] 25 mg PO Q6H PRN 10/24/19 10/24/19 History docusate sodium [Colace] 100 mg PO BID PRN 10/24/19 10/24/19 History lorazepam 0.5 mg PO TID PRN 10/24/19 10/24/19 History Patient History Medical History Acute blood loss anemia (Inactive) Anemia Anxiety Diabetes mellitus, type 2 NIDDM Endometrial cancer Excessive vaginal bleeding (Inactive) History of kidney stones Hyperlipidemia Hypertension (Inactive) Hypomagnesemia (Acute) Perimenopausal menorrhagia Sixth nerve palsy of right eye SOB (shortness of breath) (Inactive) Vaginal bleeding Surgical History H/O: hysterectomy History of anesthesia reaction SLOW TO WAKE; AGGRESSIVE BEHAVIOR History of cystoscopy History of dilatation and curettage History of esophagogastroduodenoscopy (EGD) History of lithotripsy History of tubal ligation S/P laparoscopic assisted vaginal hysterectomy (LAVH) WITH BSO AND LYMPH NODE REMOVALS surgery 11-30-2018 Family History Aunt Family history of diabetes mellitus Grandmother (Maternal) Family history of diabetes mellitus Mother Shingles Lung cancer Cystic kidney disease Stroke Father , age 63 Heart disease had angina Gangrene Sister No problems noted. Sister Mental health problem Sister , in her 50 ` s Heart disease Myocardial infarction Brother Arthritis Brother Arthritis Mental health disorder Daughter Endometriosis Anxiety Fibromyalgia Son Anxiety Heart palpitations from anxiety Arthritis Depression PTSD (post-traumatic stress disorder) Back problem Grandfather (Maternal) Head and neck cancer Social History Preferred Language: Romansh Communication Ability: Impaired Visual Impairment: No Limitations Hearing Ability: Normal Fur Liner Required: No Beliefs That Will Affect Care: None marital status: Single Current Living Situation: Family Current Living Situation Comment: Lives with son current occupational status: 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 Physical Exam Physical Exam: General Exam: GEN: NAD, sitting in chair. HEENT: No conjunctival injection, no rhinorrhea. CV: RRR, no peripheral edema PULM: Nonlabored respirations on room air. Neuro Exam: MS: Awake and Alert. Oriented to person, place, and date. Speech fluent and appropriate without dysarthria or paraphasic errors. Language intact including naming, comprehension, repetition. Cognition and memory grossly intact. Attention intact. No neglect. CN: Visual palacios full. No extinction to double simultaneous stimuli. No optic disc edema on fundoscopic exam. Right CN6 palsy; at rest, she has left esotropia. + left beating nystagmus on end gaze. Facial sensation intact to LT. Facial muscles full and symmetric. Hearing intact to conversation. Uvula midline with symmetric palatal elevation. Shoulder shrug normal. Tongue midline. MOTOR: Normal bulk and tone. No pronator drift. BUE strength 5/5 at deltoids, biceps, triceps, wrist flexors and extensors, and hand grasp bilaterally. BLE strength 5/5 at iliopsoas, hamstrings, quadriceps, tibialis anterior, and gastrocnemius bilaterally. REFLEXES: 2+ and brisk at biceps, triceps, brachioradialis, 2+ and brisk patella and 1+ Achilles bilaterally. Flexor plantar responses bilaterally. SENSORY: Intact to LT without extinction to double simultaneous stimuli. Vibration and pinprick intact in BUEs, decreased vibration in BLEs. COORDINATION: No dysmetria or ataxia on [id number]. Normal Carlos bilaterally. GAIT: deferred given physical status Results & Data Vital Signs (Past 12 Hours) Vital Signs Temp Pulse Pulse Resp BP Pulse Ox 10/25/19 16:07 70 10/25/19 15:25 36.5 C 70 18 171/82 H 96 10/25/19 12:33 36.4 C L 59 L 18 173/82 H 93 10/25/19 10:36 70 177/75 H 10/25/19 07:34 67 10/25/19 06:52 36.7 C 76 18 191/96 H 95 PG Care Time/CCT Total # of Minutes Spent Total Time Spent with Patient: Total time spent is greater than 50% in coordination of care (as documented) at patient's floor/unit and/or counseling patient: Coding Level of Care Code 13935 Inpt Consult Level 5 Diagnoses Acute hyponatremia E87.1 DM type 2 (diabetes mellitus, type 2) E11.9 Sixth nerve palsy of right eye H49.21 Dizziness R42 Gait abnormality R26.9
[2019-10-25] MEDS ORDERED: THIAMINE HCL 200 MG in SODIUM CHLORIDE 0.9% 50 ML IV STA (17:20)
[2019-10-25] MEDS: ATORVASTATIN 10 MG TAB PO SCH (20:28)
[2019-10-26] MEDS: ACETAMINOPHEN 325 MG TAB PO PRN ×3 (02:28→21:51)
[2019-10-26] MEDS: ONDANSETRON INJ 2 MG/ML 2 ML VIAL IV PRN ×2 (07:49→16:27)
[2019-10-26] MEDS: NSS + 20MEQ KCL 20 MEQ/1,000 ML BAG IV SCH ×2 (07:50→21:44)
[2019-10-26] MEDS: AMOXICILLIN/CLAVULANATE 500 MG TAB PO SCH ×2 (08:21→20:02)
[2019-10-26] MEDS: lisinopriL 10 MG TAB PO SCH (08:21)
[2019-10-26] MEDS: INSULIN ASPART 100 UNITS/ML 3 ML PEN SC SCH ×4 (08:22→20:51)
[2019-10-26] MEDS: LORazepam 0.5 MG TAB PO PRN (08:29)
--- NOTE | 2019-10-26 15:01 | Hospitalist Progress Note ---
Date of Service October 26, 2019 Assessment & Plan (1) Stroke-like symptoms: Unclear etiology of slurred speech, nausea, and ambulatory dysfunction. - MRI on 10/24/2019 did not show an acute infarct, but did show moderate findings of atrophy and chronic small vessel change of aging. - Seen by neurology who felt this could be due to orthostasis vs. BPPV or combination. - TSH, Lyme, B12, & folate are all normal. - Thiamine (B1) is still pending. - Discussed with radiology today. No small lacunar infarcts are noted that would explain symtpoms. Discussed with neurology as well and will get CTA head/neck and CTV head to look for stenoses, thrombus. (2) Dental abscess: Supposed to have teeth removed, however on hold due to COVID. Has had two prior courses of Augmentin with sx returning. - Continue Augmentin - CTA head/neck will look at area better as well. (3) Sixth nerve palsy of right eye: Seen by neuro prior and was thought to be due to her diabetes. She was seen by neurology and ophthalmology; however, has not really had a formal plan going forward. Bought her own eye patch, does not have exercises for her eye, no prism glasses. - Ongoing issue -> Will need to follow up with ophthalmology for further care (4) Malignant neoplasm of endometrium: Last chemo in 04/2019; last radiation in 05/2019. No current tx. - No current inpatient needs (5) DM type 2 (diabetes mellitus, type 2): A1c was 7.8% this admission. - Sliding scale insulin - Blood sugars have been satisfactory today. (6) HTN (hypertension): BP elevated today up to 180/100 as she has missed her medications for the last few days. - Continue home lisinopril - Holding HCTZ for hyponatremia and hypokalemia (7) Anxiety: No current issues. - Continue home meds (8) Hyperlipidemia: - Continue home meds (9) DVT prophylaxis: SCDs Admission and Anticipated Discharge Date Admission Date: October 24, 2019 Subjective Not doing much better today. Symptoms are still hard to pinpoint regarding when she feels better or worse. Reports no fevers/chills, chest pain, shortness of breath, abdominal pain, or vomiting. Physical Exam Constitutional: WD/WN, vitals as above Eyes: EOM intact bilaterally; no conjunctival abnormality ENMT: external ear and nose normal, oropharynx normal Neck: trachea midline, no thyromegaly normal visual inspection Respiratory: normal respiratory effort, lungs clear to auscultation no respiratory distress Cardiovascular: RRR, no murmur, no edema Gastrointestinal (Abdomen): Inspection/Auscultation: abdomen normal to inspection; abdomen not distended Musculoskeletal: no cyanosis or clubbing, extremities motor strength 5/5 Skin: no rashes, warm and dry Neurologic: moves all extremities and awake Speech / Cognition: + abnormal speech (Slow, deliberate); normal cognition Cranial Nerves: tongue midline Psychiatric: Orientation: alert, oriented to person and cooperative Results & Data Results & Data ([facility]) Vital Signs (Past 12 Hours) Vital Signs Temp Pulse Pulse Resp BP Pulse Ox 10/26/19 12:01 36.6 C 65 20 187/102 H 93 10/26/19 07:28 71 10/26/19 06:35 36.5 C 66 18 163/82 H 97 10/26/19 03:52 36.8 C 69 18 170/82 H 94 PG Care Time/CCT Total # of Minutes Spent Total Time Spent with Patient: Total time spent is greater than 50% in coordination of care (as documented) at patient's floor/unit and/or counseling patient: Coding Level of Care Code 75817 Subseq Hosp Care Lvl 3 Diagnoses Stroke-like symptoms R29.90 Dental abscess K04.7 Sixth nerve palsy of right eye H49.21 Malignant neoplasm of endometrium C54.1 DM type 2 (diabetes mellitus, type 2) E11.9 HTN (hypertension) I10 Anxiety F41.9 Hyperlipidemia E78.5 DVT prophylaxis Z29.9
[2019-10-26] MEDS ORDERED: FAMOTIDINE 40 MG TABLET PO ONE (15:15)
--- NOTE | 2019-10-26 17:41 | Neurology Progress Note ---
Date of Service October 26, 2019 Assessment & Plan (1) Acute hyponatremia: (2) DM type 2 (diabetes mellitus, type 2): (3) Sixth nerve palsy of right eye: Leslie Lucio is a 63 yo woman w/ PMH of DM, HTN, HLD, h/o endometrial cancer s/p MARTIN/BSO and carboplatin/taxol/vaginal brachytherapy/radiation, anxiety on benzos, recent tooth abscess and recent right CN6 palsy who p/t [facility] after having dizziness, nausea/vomiting, worsening gait and increased blurry vision/diplopia. # CN6 palsy: appears to be stable since she was seen by GARCÍA Larson, and Dr Petit in clinic last month. Has not done the appropriate therapy/treatment for this. - recommend that she contact her ophtho at [facility] to ask about prism glasses (could also contact [facility] in [place] to see if they could get her prism glasses) - encouraged her to wear the eye patch for a few hours each day and obtain exercises from ophtho regarding eye strengthening activities - continue eye drops as recommended - encouraged better diabetes control as the original palsy was likely 2/2 diabe анна - if no improvement with the above treatment options after 3-4 weeks, would consider LP as an outpatient to r/o leptomeningeal carcinomatosis (though no abnormal enhancement currently seen on MRI brain) # Dizziness: most likely multifactorial in the setting of dehydration from viral GI illness, multiple electrolyte abnormalities, new anemia since 07/2019, 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 Anticipate that this will improve as her other illness improves. - recommend zofran prn for nausea - continue to treat dehydration with IVFs as already doing - recommend PT eval for [place]-Halpike (after anti-emetic) and possible Eppley maneuver - may need walker and outpatient PT depending on PT eval (with gait training) - given her h/o cancer, will obtain CTA/CTV to r/o any vessel abnormalities that could be contributing to symptoms # Speech difficulties: appears to be more stuttering and word finding difficulty which is usually more psychological in nature and not due to a primary neurological disorder. Reassuringly, her MRI brain does not show any lesions that could explain speech difficulties. On exam, she has more issues with stuttering than true dysarthria or aphasia. - recommend referral to speech therapy as an outpatient on discharge Thank you for this interesting consult. Plan of care discussed with primary team. Please call or text with questions. (4) Dizziness: (5) Gait abnormality: Subjective NAEs overnight. Reports that if she sits still the dizziness is manageable, but is still having some dizziness upon standing. Was able to walk with PT today. Nausea/vomiting is improved. Still have speech issues, feels like words come from her brain to her mouth but her mouth does not get them out correctly (word finding). Review of Systems Review of Systems: 14 point review of systems completed and negative except as in HPI. Physical Exam Physical Exam: General Exam: GEN: NAD, sitting in chair. HEENT: No conjunctival injection, no rhinorrhea. CV: RRR, no peripheral edema PULM: Nonlabored respirations on room air. Neuro Exam: MS: Awake and Alert. Oriented to person, place, and date. Speech fluent and appropriate without dysarthria or paraphasic errors. Language intact including n aming, comprehension, repetition. Cognition and memory grossly intact. Attention intact. No neglect. CN: Visual palacios full. No extinction to double simultaneous stimuli. No optic disc edema on fundoscopic exam. Right CN6 palsy; at rest, she has left esotropia. + left beating nystagmus on end gaze. Facial sensation intact to LT. Facial muscles full and symmetric. Hearing intact to conversation. Uvula midline with symmetric palatal elevation. Shoulder shrug normal. Tongue midline. MOTOR: Normal bulk and tone. No pronator drift. BUE strength 5/5 at deltoids, biceps, triceps, wrist flexors and extensors, and hand grasp bilaterally. BLE strength 5/5 at iliopsoas, hamstrings, quadriceps, tibialis anterior, and gastrocnemius bilaterally. REFLEXES: 2+ and brisk at biceps, triceps, brachioradialis, 2+ and brisk patella and 1+ Achilles bilaterally. Flexor plantar responses bilaterally. SENSORY: Intact to LT without extinction to double simultaneous stimuli. Vibration and pinprick intact in BUEs, decreased vibration in BLEs. COORDINATION: No dysmetria or ataxia on [id number]. Normal Carlos bilaterally. GAIT: deferred given physical status Results & Data Vital Signs (Past 12 Hours) Vital Signs Temp Pulse Pulse Resp BP Pulse Ox 10/26/19 16:53 83 10/26/19 15:31 36.7 C 94 H 16 10/26/19 12:01 36.6 C 65 20 187/102 H 93 10/26/19 07:28 71 10/26/19 06:35 36.5 C 66 18 163/82 H 97 PG Care Time/CCT Total # of Minutes Spent Total Time Spent with Patient: Total time spent is greater than 50% in coordination of care (as documented) at patient's floor/unit and/or counseling patient: Coding Level of Care Code 03698 Subseq Obs Care Lvl 3 Diagnoses Acute hyponatremia E87.1 DM type 2 (diabetes mellitus, type 2) E11.9 Sixth nerve palsy of right eye H49.21 Dizziness R42 Gait abnormality R26.9
[2019-10-26] MEDS: ATORVASTATIN 10 MG TAB PO SCH (20:02)
[2019-10-27] MEDS: ACETAMINOPHEN 325 MG TAB PO PRN ×2 (05:53→20:22)
[2019-10-27 06:12] LABS: Hematocrit (blood only) 31.1 % (37-47); Mean Corpuscular Hemoglobin 28.2 pg (25-34); Mean Corpuscular Hgb Conc 32.2 g/dL (32-36); Mean Corpuscular Volume 87.6 fL (80-100); Platelet Count 468 K/uL (130-400); Red Blood Count 3.55 M/uL (4.2-5.4); White Blood Count 8.35 K/uL (4.8-10.8)
[2019-10-27] MEDS ORDERED: OPTIRAY 320 125ml IV PRN (06:37)
--- NOTE | 2019-10-27 06:52 | CT Scan Report ---
CT ANGIOGRAPHY OF THE NECK WITH CONTRAST CLINICAL HISTORY: Dysarthria COMPARISON STUDY: No previous studies for comparison. Technique: Patient was premedicated for IV dye allergy as per protocol. CT angiography of the carotid and vertebral arteries was obtained using OptiraSales Rabbit 320 IV and 3D reconstruction on an independent wor kstation. NASCET criteria was utilized. Automated exposure control was utilized for the study. A do se lowering technique was utilized adhering to the principles of ALARA. CT DOSE: 718.42 mGy.cm Findings: Lung apices are clear. A right pleural effusion is partially imaged. There is mild to moder ate atherosclerotic plaque. No stenosis or dissection within the major vessels within the neck is not ed. There is no aneurysm formation. The left vertebral artery is dominant and patent. There is no cer vical lymphadenopathy. No cervical spine fracture is noted. No mucosal lesion is identified although these may be occult by CT. The tonsils are prominent. CTA of the head will be reported separately. IMPRESSION: 1. No significant stenosis. No dissection within the neck. Mild to moderate atherosclerotic plaque. 2. Partially visualized right pleural effusion. ACT 112: Negative or not required by law. Electronically signed by: Edwin Agarwal M.D. 10/27/2019 6:50 AM
--- NOTE | 2019-10-27 07:08 | CT Scan Report ---
CTA ANGIOGRAPHY OF THE HEAD CLINICAL HISTORY: Dysarthria, would also appreciate venous timing COMPARISON STUDY: MRI the brain August 24, 2019 and October 24, 2019. TECHNIQUE: Patient was premedicated for IV dye allergy as per protocol. Helical axial images of the h ead were obtained following uneventful intravenous administration of 118 cc of Optiray 320. Arterial and venous phase imaging was performed. Sagittal and coronal reconstructions were viewed as well as m aximal intensity projections on an independent 3-D workstation. Automated exposure control was utili zed for the study. A dose lowering technique was utilized adhering to the principles of ALARA. FINDINGS: No acute intracranial hemorrhage, midline shift or mass effect is present. Ventricular syst em is unremarkable. Basilar cisterns are patent. There are no extra-axial collections. White matter h ypodensity suggests small vessel disease. There is moderate atherosclerotic plaque within the bilater al cavernous carotids with suspected mild stenosis of the right cavernous carotid. There is no dissec tion or intracranial aneurysm. No intraluminal thrombus or abrupt vessel cut off is noted. There is n o evidence for dural sinus thrombosis. IMPRESSION: 1. No intracranial aneurysm, abrupt vessel cut off or intraluminal thrombus. 2. Moderate plaque within the bilateral cavernous carotids. 3. No evidence for dural sinus thrombosis. ACT 112: Negative or not required by law. Electronically signed by: Edwin Agarwal M.D. 10/27/2019 7:06 AM
[2019-10-27 07:36] LABS: Potassium 3.6 mmol/L (3.5-5.1)
[2019-10-27 07:37] LABS: BUN Creatinine Ratio 15.7 (10-20); Calcium 9.1 mg/dl (8.5-10.1); Creatinine Clr Calc Pharmacy 97.2 ml/min; Est GFR (African American) 118.7; Est GFR (Non-African American) 102.4; Magnesium 1.5 mg/dl (1.8-2.4); Phosphorus 3.4 mg/dl (2.5-4.9)
[2019-10-27] MEDS: AMOXICILLIN/CLAVULANATE 500 MG TAB PO SCH ×2 (09:25→20:23)
[2019-10-27] MEDS: lisinopriL 10 MG TAB PO SCH (09:25)
[2019-10-27] MEDS: INSULIN ASPART 100 UNITS/ML 3 ML PEN SC SCH ×4 (09:25→20:23)
[2019-10-27] MEDS: NSS + 20MEQ KCL 20 MEQ/1,000 ML BAG IV SCH ×2 (10:38→23:33)
[2019-10-27] MEDS: ONDANSETRON INJ 2 MG/ML 2 ML VIAL IV PRN ×2 (12:45→19:17)
[2019-10-27] MEDS ORDERED: MECLIZINE HCL 25 MG TAB PO PRN (14:27)
--- NOTE | 2019-10-27 16:15 | Hospitalist Progress Note ---
Date of Service October 27, 2019 Assessment & Plan (1) Stroke-like symptoms: Unclear etiology of slurred speech, nausea, and ambulatory dysfunction. - MRI on 10/24/2019 did not show an acute infarct, but did show moderate findings of atrophy and chronic small vessel change of aging. - Seen by neurology who felt this could be due to orthostasis vs. BPPV or combination. - TSH, Lyme, B12, & folate are all normal. - Thiamine (B1) is still pending. - Discussed with radiology today. No small lacunar infarcts are noted that would explain symptoms. CTA head/neck shows no major stenoses, aneurysm, abrupt vessel cut off or intraluminal thrombus. No dural sinus thrombosis. - No clear cause for her symptoms. Will go home with home PT/OT/[employer]. (2) Dental abscess: Supposed to have teeth removed, however on hold due to COVID. Has had two prior courses of Augmentin with sx returning. - CTA head/neck did show several small dental abscesses that will need to be addressed with dentistry when able. - Continue Augmentin on discharge. (3) Sixth nerve palsy of right eye: Seen by neuro prior and was thought to be due to her diabetes. She was seen by neurology and ophthalmology; however, has not really had a formal plan going forward. Bought her own eye patch, does not have exercises for her eye, no prism glasses. - Ongoing issue -> Will need to follow up with neuro-ophthalmology for further care (4) Malignant neoplasm of endometrium: Last chemo in 04/2019; last radiation in 05/2019. No current tx. - Will get CT c/a/p on 10/27 for cancer follow up. (5) DM type 2 (diabetes mellitus, type 2): A1c was 7.8% this admission. - Sliding scale insulin - Blood sugars have been satisfactory today. (6) HTN (hypertension): BP elevated today up to 180/100 as she has missed her medications for the last few days. - Continue home lisinopril -> Increased to 40 mg for high BPs. - Holding HCTZ for hyponatremia and hypokalemia (7) Anxiety: Quite tearful on multiple times in the room. Could possible benefit from an SSRI, but will defer to PCP. - Continue home meds (8) Hyperlipidemia: - Continue home meds (9) DVT prophylaxis: SCDs Admission and Anticipated Discharge Date Admission Date: October 27, 2019 Subjective No real change in her symptoms today. Still dizzy with standing and walking. Still reports difficulty speaking. Physical Exam Constitutional: WD/WN, vitals as above Eyes: EOM intact bilaterally; no conjunctival abnormality ENMT: external ear and nose normal, oropharynx normal Neck: trachea midline, no thyromegaly normal visual inspection Respiratory: normal respiratory effort, lungs clear to auscultation no respiratory distress Cardiovascular: RRR, no murmur, no edema Gastrointestinal (Abdomen): Inspection/Auscultation: abdomen normal to inspection; abdomen not distended Musculoskeletal: no cyanosis or clubbing, extremities motor strength 5/5 Skin: no rashes, warm and dry Neurologic: moves all extremities and awake Speech / Cognition: + abnormal speech (Slow, deliberate); normal cognition Cranial Nerves: tongue midline Psychiatric: Orientation: alert, oriented to person and cooperative Results & Data Results & [facility] ([facility] Vital Signs (Past 12 Hours) Vital Signs Temp Pulse Pulse Resp BP BP Pulse Ox 10/27/19 15:38 59 L 10/27/19 15:25 36.7 C 68 16 168/75 H 97 10/27/19 11:58 70 182/88 H 10/27/19 11:57 70 177/95 H 10/27/19 11:56 36.7 C 67 20 181/101 H 92 10/27/19 10:49 54 L 10/27/19 07:44 52 L 169/93 H 10/27/19 07:43 52 L 173/73 H PG Care Time/CCT Total # of Minutes Spent Total Time Spent with Patient: Total time spent is greater than 50% in coordination of care (as documented) at patient's floor/unit and/or counseling patient: Coding Level of Care Code 43297 Subseq Hosp Care Lvl 2 Diagnoses Stroke-like symptoms R29.90 Dental abscess K04.7 Sixth nerve palsy of right eye H49.21 Malignant neoplasm of endometrium C54.1 DM type 2 (diabetes mellitus, type 2) E11.9 HTN (hypertension) I10 Anxiety F41.9 Hyperlipidemia E78.5 DVT prophylaxis Z29.9
--- NOTE | 2019-10-27 17:33 | Neurology Progress Note ---
Date of Service October 27, 2019 Assessment & Plan (1) Acute hyponatremia: (2) DM type 2 (diabetes mellitus, type 2): (3) Sixth nerve palsy of right eye: Leslie Lucio is a 63 yo woman w/ PMH of DM, HTN, HLD, h/o endometrial cancer s/p MARTIN/BSO and carboplatin/taxol/vaginal brachytherapy/radiation, anxiety on benzos, recent tooth abscess and recent right CN6 palsy who p/t [facility] after having dizziness, nausea/vomiting, worsening gait and increased blurry vision/diplopia. # CN6 palsy: appears to be stable since she was seen by GARCÍA Larson, and Dr Petit in clinic last month. Has not done the appropriate therapy/treatment for this. - recommend that she contact her ophtho at [facility] to ask about prism glasses (could also contact [facility] in [place] to see if they could get her prism glasses vs Dr Herrmann at [facility]) - encouraged her to wear the eye patch for a few hours each day and obtain exercises from ophtho regarding eye strengthening activities - continue eye drops as recommended - encouraged better diabetes control as the original palsy was likely 2/2 diabetes - if no improvement with the above treatment options after 3-4 weeks, would consider LP as an outpatient to r/o leptomeningeal carcinomatosis (though no abnormal enhancement currently seen on MRI brain) # Dizziness: most likely multifactorial in the setting of dehydration from viral GI illness, multiple electrolyte abnormalities, new anemia since 07/2019, 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 Anticipate that this will improve as her other illness improves. - recommend zofran prn for nausea - continue to treat dehydration with IVFs as already doing, increase PO liquid intake in preparation for discharge - given her h/o cancer, will obtain CTA/CTV to r/o any vessel abnormalities that could be contributing to symptoms # Speech difficulties: appears to be more stuttering and word finding difficulty which is usually more psychological in nature and not due to a primary neurological disorder. Reassuringly, her MRI brain does not show any lesions that could explain speech difficulties. - referral to speech therapy as an outpatient on discharge Thank you for this interesting consult. Plan of care discussed with primary team. Please call or text with questions. We will sign off at this time. (4) Dizziness: (5) Gait abnormality: Subjective NAEs overnight. Reports that she has been able to tolerate food better, still having difficulty with meat causing her to vomit. Has been using anti-emetics prn. Was tearful for a bit when talking, but recovered during conversation and voiced fear of symptoms persisting and affecting her daily life. Reviewed CTA/CTV independently, no LVO, high-grade stenosis, aneurysm or venous sinus thrombosis. CTA was notable for bilateral boarding room fixer (normal variant). Review of Systems Review of Systems: 14 point review of systems completed and negative except as in HPI. Physical Exam Physical Exam: General Exam: GEN: NAD, sitting in chair. HEENT: No conjunctival injection, no rhinorrhea. CV: RRR, no peripheral edema PULM: Nonlabored respirations on room air. Neuro Exam: MS: Awake and Alert. Oriented to person, place, and date. Speech fluent and appropriate without dysarthria or paraphasic errors. Language intact including naming, comprehension, repetition. Cognition and memory grossly intact. Attention intact. No neglect. CN: Visual palacios full. No extinction to double simultaneous stimuli. No optic disc edema on fundoscopic exam. Right CN6 palsy; at rest, she has left esotropia. + left beating nystagmus on end gaze. Facial sensation intact to LT. Facial muscles full and symmetric. Hearing intact to conversation. Uvula midline with symmetric palatal elevation. Shoulder shrug normal. Tongue midline. MOTOR: Normal bulk and tone. No pronator drift. BUE strength 5/5 at deltoids, biceps, triceps, wrist flexors and extensors, and hand grasp bilaterally. BLE strength 5/5 at iliopsoas, hamstrings, quadriceps, tibialis anterior, and gastrocnemius bilaterally. REFLEXES: 2+ and brisk at biceps, triceps, brachioradialis, 2+ and brisk patella and 1+ Achilles bilaterally. Flexor plantar responses bilaterally. SENSORY: Intact to LT without extinction to double simultaneous stimuli. Vibration and pinprick intact in BUEs, decreased vibration in BLEs. COORDINATION: No dysmetria or ataxia on [id number]. Normal Carlos bilaterally. GAIT: deferred given physical status Results & Data Vital Signs (Past 12 Hours) Vital Signs Temp Pulse Pulse Resp BP BP Pulse Ox 10/27/19 15:38 59 L 10/27/19 15:25 36.7 C 68 16 168/75 H 97 10/27/19 11:58 70 182/88 H 10/27/19 11:57 70 177/95 H 10/27/19 11:56 36.7 C 67 20 181/101 H 92 10/27/19 10:49 54 L 10/27/19 07:44 52 L 169/93 H 10/27/19 07:43 52 L 173/73 H PG Care Time/CCT Total # of Minutes Spent Total Time Spent with Patient: Total time spent is greater than 50% in coordination of care (as documented) at patient's floor/unit and/or counseling patient: Coding Level of Care Code 91664 Subseq Hosp Care Lvl 2 Diagnoses Acute hyponatremia E87.1 DM type 2 (diabetes mellitus, type 2) E11.9 Sixth nerve palsy of right eye H49.21 Dizziness R42 Gait abnormality R26.9
[2019-10-27] MEDS: ATORVASTATIN 10 MG TAB PO SCH (20:23)
[2019-10-28] MEDS: ONDANSETRON INJ 2 MG/ML 2 ML VIAL IV PRN (00:05)
[2019-10-28 05:30] LABS: Hematocrit (blood only) 29.7 % (37-47); Hemoglobin 9.8 g/dL (12.0-16.0); Mean Corpuscular Hemoglobin 29.1 pg (25-34); Mean Corpuscular Volume 88.1 fL (80-100); Mean Platelet Volume 7.7 fL (7.4-10.4); Platelet Count 468 K/uL (130-400); RDW Coefficient of Variation 14.3 % (11.5-14.5); RDW Standard Deviation 45.8 fL (36.4-46.3); Red Blood Count 3.37 M/uL (4.2-5.4); White Blood Count 9.14 K/uL (4.8-10.8)
[2019-10-28 05:59] LABS: BUN Creatinine Ratio 15.8 (10-20); Calcium 8.6 mg/dl (8.5-10.1); Creatinine Clr Calc Pharmacy 97.2 ml/min; Est GFR (African American) 118.7; Est GFR (Non-African American) 102.4; Potassium 4.4 mmol/L (3.5-5.1)
[2019-10-28] MEDS: AMOXICILLIN/CLAVULANATE 500 MG TAB PO SCH (07:43)
[2019-10-28] MEDS: INSULIN ASPART 100 UNITS/ML 3 ML PEN SC SCH ×2 (08:25→12:05)
[2019-10-28] MEDS ORDERED: lisinopriL 40 MG TAB PO SCH (09:00)
[2019-10-28 11:20] VITALS: TEMP 98.2; O2SAT 97
[2019-10-28] MEDS ORDERED: AMLODIPINE BESYLATE 5 MG TAB PO ONE (12:00)
--- NOTE | 2019-10-28 12:39 | Discharge Summary ---
Date of Service October 28, 2019 Admission HPI Per Admitting Provider 63 y/o F c/o slurred speech and falls. Pt states that she was eating a fish sandwich at [employer] on 10/19 when she had sudden onset of emesis. This continued for some time and she describes this as "severe". It was shortly after this that pt started to have slurred speech. This has been ongoing. On Thursday, pt started to have issues with her balance and she fell into the side of her bath tub while trying to change her pants. She had pain to her ribs where she landed and was seen in the ED at [facility]. She said she had XR that were negative and she was sent home. She states that she was "delirious" on Thursday night and went to bed. She states she just rested on Thursday and "did not move". But later that night, she started to have vomiting again. She was unable to walk and fell. She was lightheaded. She denies LOC. She did not eat anything and no emesis that day. She went via ambulance to [facility]. She was having abd pain as well and a CTAP was noted for constipation, so she had an enema and a liquid for this. She states she has had several bowel movements, but they have all been liquid. Her abd pain is better now that she has passed gas. Pt had a CT head that was neg. Her sodium was 130. She states her other sx of slurred speech and lightheadedness/balance issues were not better. She was d/c'd home with outpt f/u. Pt denies fever, SOB, chest pain, LE pain or swelling. She did try to eat this AM and had emesis. She continues to have slurred speech and balance issue. She fell today. No LOC. Pt woke up on 08/19 with her eyes crossed. She was seen by neuro and had MRI. She states she was told this was related to her DM and it would resolve over time. She states it is not improved. Pt states she has two dental abscesses. She has been on augmentin x2 with improvement during abx tx, but then sx return. She was seen by her dentist after a third occurrence and told that she would need to have teeth removed, however this happened just prior to dental offices closing due to COVID. Because of this, she was started on augmentin again on 10/17. She stopped it on 10/19 when she started to have these new sx. Principal Diagnosis Stroke like symptoms Discharge Exam Constitutional WD/WN, vitals as above Respiratory normal respiratory effort, lungs clear to auscultation Cardiovascular RRR, no murmur, no edema Gastrointestinal (Abdomen) Inspection/Auscultation: abdomen normal to inspection and normal bowel sounds; abdomen not distended Percussion/Palpation: abdomen soft; abdomen nontender Musculoskeletal no cyanosis or clubbing, extremities motor strength 5/5 Skin no rashes, warm and dry Neurologic moves all extremities and awake speech slurred Psychiatric A+Ox3, euthymic affect Discharge Data Allergies Allergy/AdvReac Type Severity Reaction Status Date / Time Iodinated Contrast Media Allergy Severe Swelling Verified 10/24/19 15:07 [Iodinated Contrast- Oral of and IV Dye] Lip/Tongue/Throat loratadine [From Claritin] Allergy Severe Anaphylaxis Verified 10/24/19 15:07 codeine Allergy Intermediate Tachycardia Verified 10/24/19 15:07 adhesive AdvReac Intermediate Hives Verified 10/28/19 06:47 Consultations 10/24/19 17:31 ED Decision to Admit Stat 10/24/19 19:59 Consult Case Management - Discharge Planning Routine Consult Neurology Routine Ordered Studies 10/24/19 14:00 MR brain wo/w con Stat 10/26/19 14:52 CT angio head w con Routine CT angio neck with con Routine Hospital Course (1) Stroke-like symptoms: Unclear etiology of slurred speech, nausea, and ambulatory dysfunction. - MRI on 10/24/2019 did not show an acute infarct, but did show moderate findings of atrophy and chronic small vessel change of aging. - Seen by neurology who felt this could be due to orthostasis vs. BPPV or combination. They have signed off at this point - if no improvement with the above treatment options after 3-4 weeks, would consider LP as an outpatient to r/o leptomeningeal carcinomatosis (though no abnormal enhancement currently seen on MRI brain) - TSH, Lyme, B12, & folate are all normal. - Thiamine (B1) is still pending. - Discussed with radiology 10/26 No small lacunar infarcts are noted that would explain symptoms. CTA head/neck shows no major stenoses, aneurysm, abrupt vessel cut off or intraluminal thrombus. No dural sinus thrombosis. - No clear cause for her symptoms. Will go home with home PT/OT/[employer]. (2) Dental abscess: Supposed to have teeth removed, however on hold due to COVID. Has had two prior courses of Augmentin with sx returning. - CTA head/neck did show several small dental abscesses that will need to be addressed with dentistry when able. - Continue Augmentin on discharge. (3) Sixth nerve palsy of right eye: Seen by neuro prior and was thought to be due to her diabetes. She was seen by neurology and ophthalmology; however, has not really had a formal plan going forward. Bought her own eye patch, does not have exercises for her eye, no prism glasses. - Ongoing issue -> Will need to follow up with neuro-ophthalmology for further care (4) Malignant neoplasm of endometrium: Last chemo in 04/2019; last radiation in 05/2019. No current tx. - CT c/a/p on 10/27 for cancer follow up - discussed with Dr. Riojas and they will arrange for this outpatient (5) DM type 2 (diabetes mellitus, type 2): A1c was 7.8% this admission. - Sliding scale insulin - Blood sugars have been satisfactory (6) HTN (hypertension): BP continues to be elevated today up to 190/100 - she has missed her medications in he previous days - Continue home lisinopril -> Increased to 40 mg for high BPs. - Holding HCTZ for hyponatremia and hypokalemia - may need to add another agent if continues to have elevated bps (7) Anxiety: Quite tearful on multiple times in the room. Could possible benefit from an SSRI, but will defer to PCP. - Continue home meds (8) Hyperlipidemia: - Continue home meds (9) DVT prophylaxis: SCDs Total Time Total Time Spent Total Time Spent (In Minutes): greater than 30 minutes Discharge Plan Discharge Items Patient Disposition: Home - Home Health Services Reason For Visit: SLURRED SPEECH,AMBULATORY DYSFUNCTION Discharge Diagnosis: Slurred speech, dizziness & nausea with position changes Activity: Resume your previous activity Non-emergency contact: Primary Care Provider Call non-emergency contact if: your symptoms worsen Follow-up/Referrals: Hernesto Garcia MD [Physician] - Richie Edmond DO [Primary Care Provider] - (Please call your primary care physician office and make a follow up appointment if needed.) Diet: Carb Consistent or DM2 and Heart Healthy Addtl Attending Provider Instructions: You were admitted to the hospital with dizziness and trouble speaking. We were worried about a stroke. We did an MRI of your brain which did not show a stroke. We did a CT scan of the arteries of your head and neck and did not see any blockages, any narrowing, and clots, or other concerning findings in the blood vessels. We did not see any sinus areas of major concern. However, we did see several teeth that have small pockets of infection. Unfortunately, because of the current coronavirus infection, I know that your dentist is not seeing people. For now, please continue your Augmentin. Please, follow up as soon as possible to try to get definitive treatment. For your eye issue (cranial nerve 6 palsy), please follow up with [facility] ([phone]). Dr. Tahir Herrmann is a neuro-ophthalmology doctor who may be able to give you more definitive treatment options. Hopefully they are still able to see people at this time, but you will need to call them. For your dizziness and nausea with positions changes, please try the meclizine as needed. Hopefully this will help. Physical therapy and occupational therapy may also be helpful. I have also added the information for the ENT doctor, Dr. Garcia who may be able to do more with your sinus issues. Home health PT/OT will evaluate and treat you. For your slower speech, speech therapy gave you a variety of exercises, and we have arranged for home speech therapy to evaluate and treat you. For your vision issues, please use the patch until you can be seen at [facility]. Finally, your sodium and potassium were mildly low in the hospital. This can be caused by your blood pressure medication, hydrochlorothiazide (HCTZ for short). I stopped this medication and increased your lisinopril to help keep your blood pressure under control. Please use a home blood pressure device to check your blood pressures daily. You should sit calmly for at least five minutes with legs uncrossed before checking your pressure. Keep a log to take to your doctor. Please call your doctor if you are consistently seeing values over 180 for the top number or over 100 for the bottom number after a couple of days of taking the amlodipine. Please call your doctor right away if your vision is worsening, your speech is worsening, you have chest pain, palpitations or shortness of breath. You may need need to add another agent besides the lisinopril if it is unable to control your pressures. Pending Studies at Discharge: No Stand-Alone Forms: My [facility], Smoking Cessation Medications and DC Order Prescriptions: New meclizine 25 mg Tablet 25 mg PO Q6H PRN (Reason: dizziness) Qty: 30 RF: 0 lisinopril 40 mg tablet 40 mg PO DAILY Qty: 30 RF: 0 Continued atorvastatin 10 mg Tablet 10 mg PO HS RF: 0 metformin [Glucophage] 1,000 mg Tablet 1,000 mg PO BID RF: 0 sodium chloride [Saline Mist] 0.65 % aerosol,spray 2 sprays INTNAS QID PRN (Reason: dry nasal passages) Qty: 60 RF: 0 ipratropium-albuterol 0.5 mg-3 mg(2.5 mg base)/3 mL solution for nebulization 3 ml NEB Q4R PRN (Reason: Shortness Of Breath Or Wheezing) RF: 0 diphenhydramine HCl [Benadryl] 25 mg Capsule 25 mg PO Q6H PRN (Reason: Allergy Symptoms) RF: 0 docusate sodium [Colace] 100 mg Capsule 100 mg PO BID PRN (Reason: Constipation) RF: 0 chlorpheniramine maleate [ChlorTabs] 4 mg tablet 4 mg PO Q6H PRN (Reason: Allergy Symptoms) RF: 0 lorazepam 0.5 mg tablet 0.5 mg PO TID PRN (Reason: Anxiety) RF: 0 Changed amoxicillin-pot clavulanate [Augmentin] 500-125 mg Tablet 1 tab PO BID Qty: 0 RF: 0 Discontinued hydrochlorothiazide 12.5 mg Capsule 12.5 mg PO QAM RF: 0 Discharge Orders: Discharge Order (Routine); Ordered 10/28/19 Ordered By: Jenae Sandoval/Other Patient Handouts: Diabetes Type 2 Managing, Diabetes Healthy Meals, Diabetes Meal Planning Admission Data Admit Date/Time: 10/27/19 07:32 Attending Provider: Kemal Matias Admit Provider: Delmi Luna Primary Care Provider: Richie Edmond Other Providers: Joe Petit III ; Kemal Matias ; [facility],Home [facility] ; Delmi Luna Other Interventions: Discharge Summary Assessment (RN) Last Done: 10/28/19 12:38 Coding Level of Care Code D/C Day Management >30 mins Diagnoses Stroke-like symptoms R29.90 Dental abscess K04.7 Sixth nerve palsy of right eye H49.21 Malignant neoplasm of endometrium C54.1 DM type 2 (diabetes mellitus, type 2) E11.9 HTN (hypertension) I10 Anxiety F41.9 Hyperlipidemia E78.5 DVT prophylaxis Z29.9
[2019-10-28 12:41] VITALS: BP 177/95; PULSE 55
[2019-10-29] MEDS ORDERED: AMLODIPINE BESYLATE 5 MG TAB PO SCH (09:00)
== END 2019-10-28 14:34 | disposition home health service (06) ==
LOC: 2W 13:23 → ED 13:23 → SUATTDRO 18:50 → 2W 19:39

== ENCOUNTER 2019-11-01 15:28 | Inpatient (IN) ==
[2019-11-01 16:31] LABS: Appearance Urine Clear (Clear); Bilirubin Urine Negative (Negative); Blood Urine Negative (Negative); Color Urine Yellow; Glucose Urine UA Negative (Negative); Ketones Urine Trace (Negative); Leukocyte Esterase Urine Negative (Negative); Nitrite Urine Negative (Negative); Specific Gravity Urine 1.007 (1.000-1.030); Urobilinogen Urine Negative (Negative); pH Urine 7.5 (4.5-7.5)
[2019-11-01 16:43] LABS: Protein Urine Negative (Negative); Sulfosalicylic Acid Urine Negative (Negative)
[2019-11-01 16:45] LABS: Bacteria Urine Automated Negative (Negative); Cast Urine Automated 0 /lpf (0-5); RBC Urine Automated 0-4 /hpf (0-4); WBC Urine Automated 0 /hpf (0-5)
--- NOTE | 2019-11-01 16:49 | Emergency Department Note ---
History of Present Illness General Chief complaint: Dehydration Stated complaint: VOMITING, TOOTH INFECTION, DEHYDRATION Time Seen by Provider: 11/01/19 15:40 Source: patient Mode of arrival: EMS Limitations: no limitations History of Present Illness Provider complaint: Vomiting and dehydration Onset (ago): day(s) 10 Maximum Pain Intensity: 0 Relieved By: + none Exacerbated By: + none Associated symptoms: + denies other symptoms Treatments prior to arrival: none This is a 63-year-old female with a complicated past medical history and other recent evaluation. Patient states she has had vomiting for the last week and a half. Patient states she was seen at [facility] for vomiting in addition and had labs and x-rays performed. Patient states in the interim she had a slip and fall against her bathtub at home and has had right side and abdominal pain since then. Patient states she did return to the ER following the fall and did have x-rays which were reported to her as negative. Patient states she was admitted here last week due to vomiting. Patient states she was discharged on antibiot ics for dental abscesses. States she has not been able to follow-up with her dentist as offices are closed and hers was not considered an emergency. Patient states she is now been on at least 2 courses of Augmentin. Patient denies diarrhea. Patient denies fevers or chills, trouble swallowing, trouble breathing, or facial swelling. Patient states she was also found to have a problem with a facial nerve and slurred speech and that she had imaging of her brain and a neurology evaluation during her last admission. Patient does have a history of cancer and does have an indwelling port in her chest. She states her last dose of chemotherapy was in April 2019 and last radiation was in May 2019. Pt seen during a time of high acuity and national emergency pandemic while wearing PPE. Home Medications Home Medications Medication Instructions Recorded Confirmed Type atorvastatin 10 mg PO HS 10/05/18 11/01/19 History metformin [Glucophage] 1,000 mg PO BID 10/05/18 11/01/19 History ipratropium-albuterol 3 ml NEB Q4H PRN 08/24/19 11/01/19 History chlorpheniramine maleate 4 mg PO Q6H PRN 10/24/19 11/01/19 History [ChlorTabs] diphenhydramine HCl [Benadryl] 25 mg PO Q6H PRN 10/24/19 11/01/19 History docusate sodium [Colace] 100 mg PO BID PRN 10/24/19 11/01/19 History lorazepam 0.5 mg PO TID PRN 10/24/19 11/01/19 History lisinopril 40 mg PO DAILY #30 tab 10/28/19 11/01/19 Rx amoxicillin-pot clavulanate 1 tab PO BID 11/01/19 11/01/19 History meclizine 25 mg PO Q6H PRN 11/01/19 11/01/19 History sodium chloride [Saline Mist] 2 sprays INTRANASAL QID PRN 11/01/19 11/01/19 History Allergies Allergy/AdvReac Type Severity Reaction Status Date / Time Iodinated Contrast Media Allergy Severe Swelling Verified 11/01/19 16:47 [Iodinated Contrast- Oral of and IV Dye] Lip/Tongue/Throat loratadine [From Claritin] Allergy Severe Anaphylaxis Verified 11/01/19 16:47 codeine Allergy Intermediate Tachycardia Verified 11/01/19 16:47 adhesive AdvReac Intermediate Hives Verified 11/01/19 16:47 Past Med/Surg History Medical History Acute blood loss anemia (Inactive) Anemia Anxiety Diabetes mellitus, type 2 NIDDM Endometrial cancer Excessive vaginal bleeding (Inactive) History of kidney stones Hyperlipidemia Hypertension (Inactive) Hypomagnesemia (Acute) Perimenopausal menorrhagia Sixth nerve palsy of right eye SOB (shortness of breath) (Inactive) Vaginal bleeding Surgical History H/O: hysterectomy History of anesthesia reaction SLOW TO WAKE; AGGRESSIVE BEHAVIOR History of cystoscopy History of dilatation and curettage History of esophagogastroduodenoscopy (EGD) History of lithotripsy History of tubal ligation S/P laparoscopic assisted vaginal hysterectomy (LAVH) WITH BSO AND LYMPH NODE REMOVALS surgery 11-30-2018 Family History Aunt Family history of diabetes mellitus Grandmother (Maternal) Family history of diabetes mellitus Mother Shingles Lung cancer Cystic kidney disease Stroke Father , age 63 Heart disease had angina Gangrene Sister No problems noted. Sister Mental health problem Sister , in her 50 ` s Heart disease Myocardial infarction Brother Arthritis Brother Arthritis Mental health disorder Daughter Endometriosis Anxiety Fibromyalgia Son Anxiety Heart palpitations from anxiety Arthritis Depression PTSD (post-traumatic stress disorder) Back problem Grandfather (Maternal) Head and neck cancer Social History Preferred Language: Romanian Communication Ability: Effective Visual Impairment: No Limitations Hearing Ability: Normal Java Project Manager Required: No Beliefs That Will Affect Care: None marital status: Single Current Living Situation: Family Current Living Situation Comment: Lives with son current occupational status: 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 and A total of 10 systems reviewed and were otherwise negative Physical Exam Vital Signs Vital Signs - 24 hr 11/01/19 15:33 11/01/19 16:00 11/01/19 16:04 Temperature 36.7 C Temperature Source Oral Pulse Rate 88 155 H 148 H Pulse Rate from SpO2 Sensor 78 81 Respiratory Rate 18 21 26 H Respiratory Effort / Characteristics Non-Labored Spontaneous Respiratory Depth Normal Respiratory Pattern Regular Blood Pressure 171/97 H 158/97 H Blood Pressure Mean 121 125 Blood Pressure Position Sitting Pulse Oximetry 95 96 96 Oxygen Delivery Method Room Air Sepsis Recent Fever Within 48 Hours No Sepsis New/Unexplained Change in Mental Status No Sepsis Action Taken by Nursing No Action Required 11/01/19 16:30 11/01/19 17:00 11/01/19 17:30 Temperature Temperature Source Pulse Rate 82 84 79 Pulse Rate from SpO2 Sensor 81 Respiratory Rate 12 23 26 H Respiratory Effort / Characteristics Respiratory Depth Respiratory Pattern Blood Pressure 169/97 H Blood Pressure Mean 127 Blood Pressure Position Pulse Oximetry 95 Oxygen Delivery Method Sepsis Recent Fever Within 48 Hours Sepsis New/Unexplained Change in Mental Status Sepsis Action Taken by Nursing 11/01/19 18:00 11/01/19 18:01 11/01/19 18:30 Temperature Temperature Source Pulse Rate 78 77 74 Pulse Rate from SpO2 Sensor 74 Respiratory Rate 25 H 25 H 25 H Respiratory Effort / Characteristics Respiratory Depth Respiratory Pattern Blood Pressure 169/89 H Blood Pressure Mean 131 Blood Pressure Position Pulse Oximetry 97 Oxygen Delivery Method Sepsis Recent Fever Within 48 Hours Sepsis New/Unexplained Change in Mental Status Sepsis Action Taken by Nursing 11/01/19 19:00 11/01/19 19:01 11/01/19 19:30 Temperature Temperature Source Pulse Rate 73 79 73 Pulse Rate from SpO2 Sensor 75 78 72 Respiratory Rate 20 23 25 H Respiratory Effort / Characteristics Respiratory Depth Respiratory Pattern Blood Pressure 142/71 H Blood Pressure Mean 88 Blood Pressure Position Pulse Oximetry 97 97 96 Oxygen Delivery Method Sepsis Recent Fever Within 48 Hours Sepsis New/Unexplained Change in Mental Status Sepsis Action Taken by Nursing GENERAL: alert, ill appearing, well nourished, no distress, non-toxic EYE EXAM: normal conjunctiva, PERRL and EOM's grossly intact OROPHARYNX: no exudate, no erythema, lips, buccal mucosa, and tongue normal and mucous membranes are moist, uvula midline, no mucocutaneous lesions, mildly foul breath noted, no obvious fluctuance along the gumline, no drainage or bleeding from around the teeth NECK: supple, no nuchal rigidity, no adenopathy, non-tender LUNGS: Clear to auscultation. Normal chest wall mechanics, no w/r/r HEART: no murmurs, S1 normal and S2 normal ABDOMEN: abdomen soft, tenderness with palpation along right costal margin and RUQ, normo-active bowel sounds, no masses, no rebound or guarding. BACK: Back is symmetrical on inspection and there is no deformity, no midline tenderness, no CVA tenderness. SKIN: no rashes and no bruising, no petechiae UPPER EXTREMITIES: upper extremities are grossly normal. FROM, nml pulses b/l. LOWER EXTREMITIES: No pitting edema. FROM, nml pulses b/l. NEURO EXAM: Normal sensorium, cranial nerves II-XII grossly intact, normal speech, no gross weakness of arms, no gross weakness of legs. Gross sensation intact. Course Course 1719: Pt updated on results. 1734: Discussed with Dr. Lozoya. Feels patient needs admitted for definitive treatment of dental abscesses. Would like repeat CT face wo contrast for additional evaluation. He can see in consult. 1839: Discussed with Dr. Monteiro. Pt has had no recurrent vomiting here. Administered Medications Acetaminophen (Tylenol) 650 mg PO Q4H PRN PRN Reason: pain/fever Stop: 12/01/19 21:24 Last Admin: 11/02/19 21:56 Dose: 650 mg Documented by: [id number] Admin: 11/02/19 16:01 Dose: 650 mg Documented by: [id number] Piperacillin Sod/Tazobactam (Sod 3.375 gm/ Dextrose) 115 mls @ 28.75 mls/hr IV Q8H JENNIFER; Protocol Stop: 11/12/19 03:59 Last Admin: 11/02/19 20:04 Dose: 28.8 mls/hr Documented by: [id number] Infusion: 11/02/19 16:12 Dose: 0 mls/hr Documented by: [id number] Admin: 11/02/19 11:59 Dose: 28.8 mls/hr Documented by: [id number] Infusion: 11/02/19 08:16 Dose: 0 mls/hr Documented by: [id number] Admin: 11/02/19 04:07 Dose: 28.8 mls/hr Documented by: [id number] Potassium Chloride/Sodium Chloride (Normal Saline W/20 Meq Kcl) 20 meq in 1,000 mls @ 100 mls/hr IV .Q10H JENNIFER Stop: 12/01/19 22:44 Last Admin: 11/02/19 18:21 Dose: 100 mls/hr Documented by: [id number] Infusion: 11/02/19 18:21 Dose: 100 mls/hr Documented by: [id number] Admin: 11/02/19 08:39 Dose: 100 mls/hr Documented by: [id number] Infusion: 11/02/19 08:39 Dose: 100 mls/hr Documented by: [id number] Admin: 11/01/19 23:24 Dose: 100 mls/hr Documented by: [id number] Famotidine 20 mg/ Syringe 5 mls @ 2.5 mls/min IV Q12H JENNIFER Stop: 12/02/19 08:59 Last Admin: 11/02/19 21:41 Dose: 2.5 mls/min Documented by: [id number] Admin: 11/02/19 08:43 Dose: 2.5 mls/min Documented by: [id number] Insulin Aspart (Novolog Flexpen) 0 units SC Q6 JENNIFER Stop: 12/02/19 00:00 Last Admin: 11/02/19 12:04 Dose: Not Given Documented by: [id number] Cosigned by: [id number] Admin: 11/02/19 06:14 Dose: Not Given Documented by: [id number] Cosigned by: [id number] Admin: 11/02/19 00:09 Dose: Not Given Documented by: [id number] Cosigned by: [id number] Lidocaine (Lidoderm 5%) 1 patch TD QAM [facility] Stop: 12/02/19 08:59 Last Admin: 11/02/19 08:40 Dose: 1 patch Documented by: [id number] Lisinopril (Zestril) 40 mg PO DAILY [facility] Stop: 12/02/19 14:59 Last Admin: 11/02/19 15:43 Dose: 40 mg Documented by: [id number] Miscellaneous (Remove Lidoderm Patch) 1 ea N/A DAILY@2100 [facility] Stop: 12/02/19 20:59 Last Admin: 11/02/19 21:57 Dose: 1 ea Documented by: [id number] Ondansetron HCl (Zofran) 4 mg IV Q6H PRN PRN Reason: Nausea Stop: 12/01/19 21:24 Last Admin: 11/02/19 16:02 Dose: 4 mg Documented by: [id number] Discontinued Medications Sodium Chloride (Nss 1000ml) 1,000 mls @ 250 mls/hr IV .Q4H [facility] Stop: 12/01/19 15:59 Last Infusion: 11/01/19 23:24 Dose: 0 mls/hr Documented by: [id number] Infusion: 11/01/19 22:08 Dose: 0 mls/hr Documented by: [id number] Admin: 11/01/19 22:05 Dose: 250 mls/hr Documented by: [id number] Infusion: 11/01/19 21:09 Dose: 0 mls/hr Documented by: [id number] Admin: 11/01/19 16:56 Dose: 250 mls/hr Documented by: [id number] Magnesium Sulfate/Dextrose (Magnesium Sulfate / D5w) 1 gm in 100 mls @ 100 mls/hr IV ONE ONE Stop: 11/01/19 18:49 Last Infusion: 11/01/19 19:14 Dose: 0 mls/hr Documented by: [id number] Admin: 11/01/19 18:05 Dose: 100 mls/hr Documented by: [id number] Ampicillin Sodium/Sulbactam Sodium 3,000 mg/ Sodium Chloride 108 mls @ 200 mls/hr IV NOW STA; Protocol Stop: 11/01/19 19:16 Last Infusion: 11/01/19 21:09 Dose: 0 mls/hr Documented by: [id number] Admin: 11/01/19 19:15 Dose: 200 mls/hr Documented by: [id number] Piperacillin Sod/Tazobactam (Sod 3.375 gm/ Dextrose) 115 mls @ 230 mls/hr IV NOW ONE; Protocol Stop: 11/01/19 22:14 Last Infusion: 11/01/19 22:39 Dose: 0 mls/hr Documented by: [id number] Admin: 11/01/19 22:08 Dose: 230 mls/hr Documented by: [id number] Insulin Aspart (Novolog Flexpen) 0 units SC ACHS [facility] Stop: 12/01/19 21:24 Last Admin: 11/01/19 21:56 Dose: Not Given Documented by: [id number] Cosigned by: [id number] Insulin Aspart (Novolog Flexpen) 0 units SC ACHS JENNIFER Stop: 11/02/19 21:01 Last Admin: 11/02/19 20:59 Dose: Not Given Documented by: [id number] Cosigned by: [id number] Admin: 11/02/19 18:26 Dose: 4 units Documented by: [id number] Cosigned by: [id number] Ondansetron HCl (Zofran) 4 mg IV NOW STA Stop: 11/01/19 17:36 Last Admin: 11/01/19 17:58 Dose: 4 mg Documented by: [id number] Potassium Chloride (Klor-Con M20) 40 meq PO NOW STA Stop: 11/01/19 17:29 Last Admin: 11/01/19 17:57 Dose: 40 meq Documented by: [id number] Medical Decision Making Differential Diagnosis Differential diagnoses includes but is not limited to gastritis, peptic ulcer disease, GERD, gallbladder disease, pancreatitis, small bowel obstruction, acute coronary syndrome, pericarditis, ischemic bowel, irritable bowel disease, irritable bowel syndrome, appendicitis, diverticulitis, malignancy, hernia, urinary tract infection, torsion, [/ectopic (if female)], perforation, trauma, infectious, Dental caries, dental abscess, Ludwigs angina, Vincent angina, dental fracture, facial cellulitis, parotitis, osteomyelitis, sinus infection, peritonsillar abscess, Gastroenteritis, Food Borne, Esophageal Perforation, , Electrolyte Abnormality, Dehydration, Intraabdominal Infection, UTI/Pyelonephritis, Bowel Obstruction, Biliary Pathology, amongst other pathology entertained. Medical Records Attestation: I reviewed the patient's medical records. Home Medications Current Medication List: was personally reviewed by me Laboratory Data Attestation: I reviewed the patient's lab results. Result diagrams: 11/02/19 05:38 11/02/19 05:38 Lab Results 11/01/19 11/01/19 11/01/19 Range/Units 16:15 16:55 16:55 WBC (4.8-10.8) K/uL RBC (4.2-5.4) M/uL Hgb (12.0-16.0) g/dL Hct (37-47) % MCV (80-100) fL MCH (25-34) pg MCHC (32-36) g/dL RDW Std Deviation (36.4-46.3) fL RDW Coeff of Gracy (11.5-14.5) % Plt Count (130-400) K/uL MPV (7.4-10.4) fL Immature Gran % (Auto) % Neut % (Auto) % Lymph % (Auto) % [place] % (Auto) % Eos % (Auto) % Baso % (Auto) % Immature Gran # (Auto) (0.00-0.02) K/uL Neut # (Auto) (1.4-6.5) K/uL Lymph # (Auto) (1.2-3.4) K/uL [place] # (Auto) (0.11-0.59) K/uL Eos # (Auto) (0-0.5) K/uL Baso # (Auto) (0-0.2) K/uL Sodium (136-145) mmol/L Potassium (3.5-5.1) mmol/L Chloride (98-107) mmol/L Carbon Dioxide (21-32) mmol/L Anion Gap (3-11) BUN (7-18) mg/dl Creatinine (0.6-1.2) mg/dl Est Cr Clr Drug Dosing Est GFR ( Amer) Est GFR (Non-Af Amer) BUN/Creatinine Ratio (10-20) Glucose (70-99) mg/dl Lactate 1.1 (0.4-2.0) mmol/L Calcium (8.5-10.1) mg/dl Magnesium (1.8-2.4) mg/dl Total Bilirubin (0.2-1) mg/dl AST (15-37) U/L ALT (12-78) U/L Alkaline Phosphatase (45-117) U/L Troponin I (0-0.045) ng/ml Total Protein (6.4-8.2) gm/dl Albumin (3.4-5.0) gm/dl Globulin (2.5-4.0) gm/dl Albumin/Globulin Ratio (0.9-2) Lipase (73-393) U/L Procalcitonin < 0.05 (0-0.5) ng/ml TSH (0.300-4.500) uIu/ml Urine Color Yellow Urine Appearance Clear (Clear) Urine pH 7.5 (4.5-7.5) Ur Specific [place] 1.007 (1.000-1.030) Urine Protein Negative (Negative) Urine Glucose (UA) Negative (Negative) Urine Ketones Trace H (Negative) Urine Blood Negative (Negative) Urine Nitrite Negative (Negative) Urine Bilirubin Negative (Negative) Urine Urobilinogen Negative (Negative) Ur Leukocyte Esterase Negative (Negative) Urine WBC (Auto) 0 (0-5) /hpf Urine RBC (Auto) 0-4 (0-4) /hpf U Hyaline Cast (Auto) 0 (0-5) /lpf U Epithel Cells (Auto) 5-10 H (0-5) /lpf Urine Bacteria (Auto) Negative (Negative) 11/01/19 11/01/19 Range/Units 16:55 16:55 WBC 12.26 H (4.8-10.8) K/uL RBC 3.72 L (4.2-5.4) M/uL Hgb 10.9 L (12.0-16.0) g/dL Hct 32.4 L (37-47) % MCV 87.1 (80-100) fL MCH 29.3 (25-34) pg MCHC 33.6 (32-36) g/dL RDW Std Deviation 47.0 H (36.4-46.3) fL RDW Coeff of Gracy 14.7 H (11.5-14.5) % Plt Count 495 H (130-400) K/uL MPV 7.8 (7.4-10.4) fL Immature Gran % (Auto) 0.2 % Neut % (Auto) 78.3 % Lymph % (Auto) 13.5 % H[place]go % (Auto) 7.2 % Eos % (Auto) 0.7 % Baso % (Auto) 0.1 % Immature Gran # (Auto) 0.03 H (0.00-0.02) K/uL Neut # (Auto) 9.60 H (1.4-6.5) K/uL Lymph # (Auto) 1.65 (1.2-3.4) K/uL [place] # (Auto) 0.88 H (0.11-0.59) K/uL Eos # (Auto) 0.09 (0-0.5) K/uL Baso # (Auto) 0.01 (0-0.2) K/uL Sodium 132 L (136-145) mmol/L Potassium 3.0 L (3.5-5.1) mmol/L Chloride 98 (98-107) mmol/L Carbon Dioxide 26 (21-32) mmol/L Anion Gap 8.0 (3-11) BUN 9 (7-18) mg/dl Creatinine 0.57 L (0.6-1.2) mg/dl Est Cr Clr Drug Dosing Not Reportable Est GFR ( Amer) 115.2 Est GFR (Non-Af Amer) 99.4 BUN/Creatinine Ratio 16.0 (10-20) Glucose 113 H (70-99) mg/dl Lactate (0.4-2.0) mmol/L Calcium 9.5 (8.5-10.1) mg/dl Magnesium 1.6 L (1.8-2.4) mg/dl Total Bilirubin 0.3 (0.2-1) mg/dl AST 9 L (15-37) U/L ALT 12 (12-78) U/L Alkaline Phosphatase 111 (45-117) U/L Troponin I < 0.015 (0-0.045) ng/ml Total Protein 7.9 (6.4-8.2) gm/dl Albumin 2.8 L (3.4-5.0) gm/dl Globulin 5.1 H (2.5-4.0) gm/dl Albumin/Globulin Ratio 0.6 L (0.9-2) Lipase 41 L (73-393) U/L Procalcitonin (0-0.5) ng/ml TSH 0.803 (0.300-4.500) uIu/ml Urine Color Urine Appearance (Clear) Urine pH (4.5-7.5) Ur Specific [place] (1.000-1.030) Urine Protein (Negative) Urine Glucose (UA) (Negative) Urine Ketones (Negative) Urine Blood (Negative) Urine Nitrite (Negative) Urine Bilirubin (Negative) Urine Urobilinogen (Negative) Ur Leukocyte Esterase (Negative) Urine WBC (Auto) (0-5) /hpf Urine RBC (Auto) (0-4) /hpf U Hyaline Cast (Auto) (0-5) /lpf U Epithel Cells (Auto) (0-5) /lpf Urine Bacteria (Auto) (Negative) Imaging Data Radiologist's Impression: MAXILLOFACIAL CT WITHOUT CONTRAST CLINICAL HISTORY: recent dental abscesses COMPARISON STUDY: None. TECHNIQUE: A maxillofacial CT was performed without IV contrast. Coronal and sagittal reformats were viewed. Automated exposure control was utilized for the study. A dose lowering technique was utilized adhering to the principles of ALARA. FINDINGS: Evaluation for abscess is suboptimal on this unenhanced exam but no soft tissue abscess is noted. Multiple teeth are absent. There are numerous periapical lucencies/abscesses. The largest of which is a 1.2 cm lucency associated with the medial and lateral left maxillary incisors. Note is made of periapical lucencies/abscesses associated with several right mandibular premolar and molars. There are multiple cavities. Mild sinus mucosal thickening is noted. There is no acute facial fracture. Multiple dental amalgams are present. Mastoid air cells are clear. Orbits are unremarkable. IMPRESSION: 1. Numerous periapical lucencies/abscesses and cavities, as described above. No associated soft tissue abscess on this unenhanced exam. 2. No acute facial fracture. ACT 112: Negative or not required by law. Electronically signed by: Edwin Agarwal M.D. 11/01/2019 6:[address] OF THE ABDOMEN AND PELVIS WITHOUT CONTRAST CLINICAL HISTORY: Right-sided abdominal pain. Fall. History of endometrial carcinoma. COMPARISON STUDY: CT of the abdomen and pelvis August 03, 2019. TECHNIQUE: Axial images of the abdomen and pelvis were obtained without IV contrast. Images were reviewed in the axial, sagittal, and coronal planes. Automated exposure control was utilized for the study. A dose lowering technique was utilized adhering to the principles of ALARA. FINDINGS: Imaged portions of the lower chest demonstrate multiple acute nondisplaced right-sided rib fractures. There are acute nondisplaced fractures of the posterior lateral right eighth and ninth ribs. There are acute nondisplaced fractures of the posterior and posterolateral aspects of the right 10th and 11th ribs. No pneumothorax is shown within visualized portions of the chest. Evaluation of the abdomen and pelvis is suboptimal on this unenhanced exam. There is no evidence for traumatic injury to the liver, spleen, adrenal glands, kidneys or pancreas. A water attenuation left renal lesion were shown to represent a cyst on prior contrast enhanced exam. No hemoperitoneum or pneumoperitoneum is present. There is no evidence for a bowel obstruction. There is no hydronephrosis. No biliary or pancreatic ductal dilatation is noted. There has been moderate increase in size of abdominal and pelvic lymphadenopathy since CT of August 03, 2019. A left common iliac node on image 225 measures 2.4 x 1.8 cm. It measured 1.5 x 1.[address] of August 03, 2019. Paraaortic lymph nodes have increased in size as well. A right common iliac node on image 229 measures 2 cm. It previously measured 1 cm. A left iliac node on image 281 measures 3.1 cm. It previously measured 1.7 cm. A left pelvic sidewall node on image 339 measures 2.9 cm. It previously measured 1.4 cm. The uterus is surgically absent. No acute pelvic or hip fracture is identified. Note is made of an acute nondi splaced fracture of the right transverse process of L1. IMPRESSION: 1. Acute nondisplaced fractures of the posterior lateral right eighth and ninth ribs and acute nondisplaced fractures of the posterior and posterolateral aspects of the right 10th and 11th ribs. 2. Acute nondisplaced fracture of the right transverse process of L1. 3. Moderate increase in abdominal and pelvic lymphadenopathy since CT of August 03, 2019 consistent with progression of kristy metastases. ACT 112: Negative or not required by law. Electronically signed by: Edwin Agarwal M.D. 11/01/2019 4:59 PM XR chest 1V portable CLINICAL HISTORY: productive cough COMPARISON STUDY: Chest radiograph and chest CT June 15, 2019. FINDINGS: Lung volumes are normal. Lungs are clear. There is no pneumothorax or pleural effusion. Cardiac size is normal. Mediastinal contours are normal. There is no evidence for pulmonary edema. Left sided [id number] is in place. Nondisplaced acute right eighth rib fracture is noted. This is better depicted on the abdominal CT performed earlier today. IMPRESSION: 1. No acute cardiopulmonary findings. 2. Acute nondisplaced right eighth rib fracture. This fracture, in addition to several additional right-sided rib fractures, are better depicted on the CT of the abdomen and pelvis performed earlier today. Please see that report. ACT 112: Negative or not required by law. Electronically signed by: Edwin Agarwal M.D. 11/01/2019 5:23 PM ECG Data Attestation: I personally reviewed and interpreted this ECG as follows: Indication: + nausea and + vomiting Rate (beats per minute): 78 Rhythm: + normal sinus ECG Intervals/blocks: + Normal QRS and + Prolonged QT ECG ST segments: no ST depression and no ST elevation ECG Findings: + Q waves (V2, V3) Blood Pressure Blood Pressure Findings: Elevated blood pressure Blood Pressure Disposition: further management by hospitalist [place] Narrative Patient here out of concern for dehydration due to persistent vomiting. Patient has been seen twice in the last 2 weeks first on a BLADE [facility]ias and then here last w tanana. Patient was noted to have dental abscesses on a CT and was continued on Augmentin which she had taken a course of previously for dental caries/abscess. Patient also complains of drainage from the teeth which she feels is contributing to nausea vomiting in addition to the likely side effects of the antibiotic. Patient was also noted to have pain in the right flank and right upper quadrant and on CT was noted to have multiple rib fractures. Patient states she fell last week between hospitalizations. There is no other evidence of hemoperitoneum or other trauma. No other evidence of acute GI or pathology. Patient last week when admitted here had an extensive neurology evaluation including CTs, MRI, and neurology consultation. I do not feel the persistent slurred speech for which she is already been evaluated is a contributing factor in today's presentation. Patient requested that I call Dr. Lozoya as her family had been in contact with him regarding treatment of her dental abscesses as all the dental office are closed currently due to the coronavirus pandemic. If possible Dr. Lozoya would prefer that the patient be admitted so he can provide definitive treatment. Given patient's extensive past medical history, risk factors for worse outcome, and failed outpatient man agement at this point in time I do feel this is reasonable. Case was discussed with hospitalist. Patient was given IV fluid rehydration here as well as additional IV medications which did seem to help as she did not have any recurrent vomiting although still complained of some mild nausea. Patient was found to have hypokalemia and hypomagnesemia which were repleted also. Patient was hemodynamically stable while in the emergency room. I do not suspect bacteremia/sepsis, Lenard's angina, Lemierre's syndrome, facial cellulitis, osteomyelitis, or other deep space infection. Patient handling her secretions and managing her airway well, no tripoding, no trismus, no hypoxia, no increased work of breathing. Impression & Plan Nausea & vomiting, Hypomagnesemia, HTN (hypertension), Dental abscess, Hypokalemia, Dehydration, Multiple rib fractures, Anemia Discharge Plan Visit Data *Final* Discharge Date/Time: 11/01/19 21:08 Chief Complaint: Dehydration Stated Complaint: VOMITING, TOOTH INFECTION, DEHYDRATION ED Provider: Leslie Fu Discharge Problem: Nausea & vomiting, Hypomagnesemia, HTN (hypertension), Dental abscess, Hypokalemia, Dehydration, Multiple rib fractures, Anemia Patient Disposition: Admitted As Inpatient Discharge Instructions Interventions: ED Discharge Assessment Last Done: 11/01/19 21:08 Discharge Problem: Nausea & vomiting Qualifiers: Vomiting type: unspecified Vomiting Intractability: non-intractable Qualified Code(s): R11.2 - Nausea with vomiting, unspecified HTN (hypertension) Qualifiers: Hypertension type: essential hypertension Qualified Code(s): I10 - Essential (primary) hypertension Multiple rib fractures Qualifiers: Encounter type: initial encounter Fracture type: closed Laterality: right Qualified Code(s): S22.41XA - Multiple fractures of ribs, right side, initial encounter for closed fracture Anemia Qualifiers: Anemia type: unspecified type Qualified Code(s): D64.9 - Anemia, unspecified
[2019-11-01] MEDS: SODIUM CHLORIDE 0.9% 1000ML 1,000 ML IV SCH ×2 (16:56→22:05)
--- NOTE | 2019-11-01 17:01 | CT Scan Report ---
CT OF THE ABDOMEN AND PELVIS WITHOUT CONTRAST CLINICAL HISTORY: Right-sided abdominal pain. Fall. History of endometrial carcinoma. COMPARISON STUDY: CT of the abdomen and pelvis August 03, 2019. TECHNIQUE: Axial images of the abdomen and pelvis were obtained without IV contrast. Images were revi ewed in the axial, sagittal, and coronal planes. Automated exposure control was utilized for the hesham dy. A dose lowering technique was utilized adhering to the principles of ALARA. FINDINGS: Imaged portions of the lower chest demonstrate multiple acute nondisplaced right-sided rib fractures. There are acute nondisplaced fractures of the posterior lateral right eighth and ninth rib s. There are acute nondisplaced fractures of the posterior and posterolateral aspects of the right 10 th and 11th ribs. No pneumothorax is shown within visualized portions of the chest. Evaluation of the abdomen and pelvis is suboptimal on this unenhanced exam. There is no evidence for traumatic injury to the liver, spleen, adrenal glands, kidneys or pancreas. A water attenuation left renal lesion were shown to represent a cyst on prior contrast enhanced exam. No hemoperitoneum or pne umoperitoneum is present. There is no evidence for a bowel obstruction. There is no hydronephrosis. N o biliary or pancreatic ductal dilatation is noted. There has been moderate increase in size of abdom inal and pelvic lymphadenopathy since CT of August 03, 2019. A left common iliac node on image 225 me asures 2.4 x 1.8 cm. It measured 1.5 x 1[address] of August 03, 2019. Paraaortic lymph nodes have i ncreased in size as well. A right common iliac node on image 229 measures 2 cm. It previously measure d 1 cm. A left iliac node on image 281 measures 3.1 cm. It previously measured 1.7 cm. A left pelvic sidewall node on image 339 measures 2.9 cm. It previously measured 1.4 cm. The uterus is surgically a bsent. No acute pelvic or hip fracture is identified. Note is made of an acute nondisplaced fracture of the right transverse process of L1. IMPRESSION: 1. Acute nondisplaced fractures of the posterior lateral right eighth and ninth ribs and acute nondis placed fractures of the posterior and posterolateral aspects of the right 10th and 11th ribs. 2. Acute nondisplaced fracture of the right transverse process of L1. 3. Moderate increase in abdominal and pelvic lymphadenopathy since CT of August 03, 2019 consistent w ith progression of kristy metastases. ACT 112: Negative or not required by law. Electronically signed by: Edwin Agarwal M.D. 11/01/2019 4:59 PM
[2019-11-01 17:12] LABS: Basophils # (auto) 0.01 K/uL (0-0.2); Basophils % (auto) 0.1 %; Eosinophils # (auto) 0.09 K/uL (0-0.5); Eosinophils % (auto) 0.7 %; Hematocrit (blood only) 32.4 % (37-47); Hemoglobin 10.9 g/dL (12.0-16.0); Immature Granulocytes # (auto) 0.03 K/uL (0.00-0.02); Immature Granulocytes % (auto) 0.2 %; Lymphocytes # (auto) 1.65 K/uL (1.2-3.4); Lymphocytes % (auto) 13.5 %; Mean Corpuscular Hemoglobin 29.3 pg (25-34); Mean Corpuscular Hgb Conc 33.6 g/dL (32-36); Mean Corpuscular Volume 87.1 fL (80-100); Mean Platelet Volume 7.8 fL (7.4-10.4); Monocytes # (auto) 0.88 K/uL (0.11-0.59); Monocytes % (auto) 7.2 %; Neutrophils % (auto) 78.3 %; Platelet Count 495 K/uL (130-400); RDW Coefficient of Variation 14.7 % (11.5-14.5); Red Blood Count 3.72 M/uL (4.2-5.4); White Blood Count 12.26 K/uL (4.8-10.8)
--- NOTE | 2019-11-01 17:24 | XRay Report ---
XR chest 1V portable CLINICAL HISTORY: productive cough COMPARISON STUDY: Chest radiograph and chest CT June 15, 2019. FINDINGS: Lung volumes are normal. Lungs are clear. There is no pneumothorax or pleural effusion. Car diac size is normal. Mediastinal contours are normal. There is no evidence for pulmonary edema. Left sided [id number] is in place. Nondisplaced acute right eighth rib fracture is noted. This is dorian r depicted on the abdominal CT performed earlier today. IMPRESSION: 1. No acute cardiopulmonary findings. 2. Acute nondisplaced right eighth rib fracture. This fracture, in addition to several additional rig ht-sided rib fractures, are better depicted on the CT of the abdomen and pelvis performed earlier tocindy simms. Please see that report. ACT 112: Negative or not required by law. Electronically signed by: Edwin Agarwal M.D. 11/01/2019 5:23 PM
[2019-11-01 17:26] LABS: Alanine Aminotransferase 12 U/L (12-78); Albumin Level 2.8 gm/dl (3.4-5.0); Aspartate Aminotransferase 9 U/L (15-37); Blood Urea Nitrogen 9 mg/dl (7-18); Calcium 9.5 mg/dl (8.5-10.1); Carbon Dioxide 26 mmol/L (21-32); Chloride 98 mmol/L (98-107); Est GFR (African American) 115.2; Est GFR (Non-African American) 99.4; Glucose 113 mg/dl (70-99); Lipase 41 U/L (73-393); Magnesium 1.6 mg/dl (1.8-2.4); Sodium 132 mmol/L (136-145)
[2019-11-01] MEDS ORDERED: POTASSIUM CHLORIDE 20 MEQ TABCR PO STA (17:28)
[2019-11-01] MEDS ORDERED: ONDANSETRON INJ 2 MG/ML 2 ML VIAL IV STA (17:35)
[2019-11-01 17:36] LABS: Albumin Globulin Ratio 0.6 (0.9-2); Alkaline Phosphatase 111 U/L (45-117); Bilirubin,Total 0.3 mg/dl (0.2-1); Globulin 5.1 gm/dl (2.5-4.0); Thyroid Stimulating Hormone 0.803 uIu/ml (0.300-4.500); Total Protein 7.9 gm/dl (6.4-8.2); Troponin I < 0.015 ng/ml (0-0.045)
--- NOTE | 2019-11-01 17:49 | CT Scan Report ---
CT OF THE LUMBAR SPINE CLINICAL HISTORY: trauma, transverse process fracture COMPARISON STUDY: CT of the abdomen and pelvis June 21, 2019. TECHNIQUE: Helical axial images of the lumbar spine were obtained. Sagittal and coronal reconstruct ions were viewed. Automated exposure control was utilized for the study. A dose lowering technique was utilized adhering to the principles of ALARA. FINDINGS: Note is made of an acute nondisplaced fracture of the right transverse process of L1. No ad ditional acute fractures within the lumbar spine are noted. There are no suspicious osseous lesions. There is moderate to severe multilevel facet arthrosis. The central canal and neural foramen are subo ptimally assessed by CT. Retroperitoneal lymphadenopathy is better depicted on the CT of the abdomen and pelvis. Please see that report for further description. Sacroiliac joints are intact. IMPRESSION: 1. Acute nondisplaced fracture of the right transverse process of L1. 2. Retroperitoneal lymphadenopathy which is better depicted on the CT of the abdomen and pelvis. ACT 112: Negative or not required by law. Electronically signed by: Edwin Agarwal M.D. 11/01/2019 5:48 PM
[2019-11-01] MEDS ORDERED: MAGNESIUM SULFATE / D5W 1 GM/100 ML BAG IV ONE (17:50)
[2019-11-01] MEDS ORDERED: AMPICILLIN/SULBACTAM SOD 3,000 MG in 0.9 % SODIUM CHLORIDE 100 ML IV STA (18:44)
--- NOTE | 2019-11-01 18:44 | CT Scan Report ---
MAXILLOFACIAL CT WITHOUT CONTRAST CLINICAL HISTORY: recent dental abscesses COMPARISON STUDY: None. TECHNIQUE: A maxillofacial CT was performed without IV contrast. Coronal and sagittal reformats were viewed. Automated exposure control was utilized for the study. A dose lowering technique was utiliz ed adhering to the principles of ALARA. FINDINGS: Evaluation for abscess is suboptimal on this unenhanced exam but no soft tissue abscess is noted. Multiple teeth are absent. There are numerous periapical lucencies/abscesses. The largest of w hich is a 1.2 cm lucency associated with the medial and lateral left maxillary incisors. Note is made of periapical lucencies/abscesses associated with several right mandibular premolar and molars. Ther e are multiple cavities. Mild sinus mucosal thickening is noted. There is no acute facial fracture. M ultiple dental amalgams are present. Mastoid air cells are clear. Orbits are unremarkable. IMPRESSION: 1. Numerous periapical lucencies/abscesses and cavities, as described above. No associated soft tissu e abscess on this unenhanced exam. 2. No acute facial fracture. ACT 112: Negative or not required by law. Electronically signed by: Edwin Agarwal M.D. 11/01/2019 6:42 PM
[2019-11-01] MEDS ORDERED: CARBOHYDRATES FOR HYPOGLYCEMIA PO PRN (21:25)
[2019-11-01] MEDS ORDERED: INSULIN ASPART 100 UNITS/ML 3 ML PEN SC SCH (21:25)
[2019-11-01] MEDS ORDERED: PIPERACILL/TAZOBAC CONSULT ACTIVE PRN (21:25)
[2019-11-01] MEDS ORDERED: DEXTROSE 50% 50 ML SYRINGE IV PRN (21:25)
[2019-11-01] MEDS ORDERED: GLUCOSE 10 TABS/TUBE PO PRN (21:25)
[2019-11-01] MEDS ORDERED: GLUCOSE 40% GEL 15 GM TUBE PO PRN (21:25)
[2019-11-01] MEDS ORDERED: GLUCAGON FOR INJ 1 MG VIAL SQ PRN (21:25)
[2019-11-01] MEDS ORDERED: PIPERACILLIN/TAZOBACTAM 3.375 GM in DEXTROSE 5% 100 ML IV ONE (21:45)
[2019-11-01] MEDS ORDERED: Nursing to Pharmacy Communication ONE (21:57)
[2019-11-01] MEDS ORDERED: MICONAZOLE NITRATE POWDER 43 GM EXT PRN (22:18)
--- NOTE | 2019-11-01 22:24 | History & Physical Report ---
Date of Service November 01, 2019 Assessment & Plan (1) Dental infection: Admits to medical surgical floor. Zosyn 3.375 mg IV every 8 hours Zofran 4 mg IV every 6 hours as needed. Famotidine 20 mg IV every 12 hours. NSS + KCl 20 mEq at 100 mils per hour Acetaminophen 650 mg p.o. every 6 hours as needed mild pain or temperature. Present on Admission?: Yes (2) Closed L1 vertebral fracture: May apply Lidoderm patch over the site as needed as well Present on Admission?: Yes (3) Multiple rib fractures involving four or more ribs: Fractures involving posterior lateral 8, 9, 10 and 11th ribs- Apply Lidoderm patch to affected area per protocol. Present on Admission?: Yes (4) DM type 2 (diabetes mellitus, type 2): Hold metformin. Placed on Accu-Cheks before meals and at bedtime/every 6 hours, with NovoLog coverage per per scale Present on Admission?: Yes (5) HTN (hypertension): Hold lisinopril for procedure in the a.m. Present on Admission?: Yes (6) Sixth nerve palsy of right eye: Reported due to diabetes mellitus, and should slowly improve over time. Present on Admission?: Yes (7) Hyperlipidemia: Atorvastatin on hold for procedure in a.m. Present on Admission?: Yes Admission and Anticipated Discharge Date Admission Date: November 01, 2019 Anticipated date of discharge: 11/03/19 History of Present Illness Chief Complaint: The patient presents to the emergency department with complaint of nausea, vomiting and dehydration, along with persistent right sided chest wall and abdominal pain after a slip and fall in her bathtub. Primary Care Provider: SHYANN REEYS The patient is a 63-year-old female with a past medical history including diabetes mellitus type 2, hypertension, strokelike symptoms, right eye 6th nerve palsy, hypomagnesemia, hyperlipidemia, malignant neoplasm of endometrium and anxiety. She was most recently admitted to [facility] from 10/23-10/28/2019 for strokelike symptoms, and a known dental abscess. She had had episode of severe emesis on 10/19, the development of slurred speech, difficulty with her balance and which led to a fall in her bathtub. She had been seen at [facility] emergency department with reported negative x-rays, and was discharged to home. Due to the recurrence of symptoms, she presented to [facility], and was admitted for strokelike symptoms. Her work-up at [facility] included a normal CT scan of brain, CTA head and neck, MRI of brain, and normal TSH, Lyme, B12 and folate testing. 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 CTA head neck did show several small dental abscesses that was advised to be addressed as an outpatient, and patient was to continue Augmentin on discharge. The patient represented to the ED this evening with the symptoms as noted above. CT of abdomen and pelvis showed right-sided 8, 9, 10 and 11th rib fractures, and a transverse process L1 fracture. There was also significant worsening of abdominal and pelvic lymphadenopathy Allergies Allergy/AdvReac Type Severity Reaction Status Date / Time Iodinated Contrast Media Allergy Severe Swelling Verified 11/01/19 16:47 [Iodinated Contrast- Oral of and IV Dye] Lip/Tongue/Throat loratadine [From Claritin] Allergy Severe Anaphylaxis Verified 11/01/19 16:47 codeine Allergy Intermediate Tachycardia Verified 11/01/19 16:47 adhesive AdvReac Intermediate Hives Verified 11/01/19 16:47 Home Medications Home Medications Medication Instructions Recorded Confirmed Type atorvastatin 10 mg PO HS 10/05/18 11/01/19 History metformin [Glucophage] 1,000 mg PO BID 10/05/18 11/01/19 History ipratropium-albuterol 3 ml NEB Q4H PRN 08/24/19 11/01/19 History chlorpheniramine maleate 4 mg PO Q6H PRN 10/24/19 11/01/19 History [ChlorTabs] diphenhydramine HCl [Benadryl] 25 mg PO Q6H PRN 10/24/19 11/01/19 History docusate sodium [Colace] 100 mg PO BID PRN 10/24/19 11/01/19 History lorazepam 0.5 mg PO TID PRN 10/24/19 11/01/19 History lisinopril 40 mg PO DAILY #30 tab 10/28/19 11/01/19 Rx amoxicillin-pot clavulanate 1 tab PO BID 11/01/19 11/01/19 History meclizine 25 mg PO Q6H PRN 11/01/19 11/01/19 History sodium chloride [Saline Mist] 2 sprays INTRANASAL QID PRN 11/01/19 11/01/19 History Past Med/Surg History Medical History Acute blood loss anemia (Inactive) Anemia Anxiety Diabetes mellitus, type 2 NIDDM Endometrial cancer Excessive vaginal bleeding (Inactive) History of kidney stones Hyperlipidemia Hypertension (Inactive) Hypomagnesemia (Acute) Perimenopausal menorrhagia Sixth nerve palsy of right eye SOB (shortness of breath) (Inactive) Vaginal bleeding Surgical History H/O: hysterectomy History of anesthesia reaction SLOW TO WAKE; AGGRESSIVE BEHAVIOR History of cystoscopy History of dilatation and curettage History of esophagogastroduodenoscopy (EGD) History of lithotripsy History of tubal ligation S/P laparoscopic assisted vaginal hysterectomy (LAVH) WITH BSO AND LYMPH NODE REMOVALS surgery 11-30-2018 Family History Aunt Family history of diabetes mellitus Grandmother (Maternal) Family history of diabetes mellitus Mother Shingles Lung cancer Cystic kidney disease Stroke Father , age 63 Heart disease had angina Gangrene Sister No problems noted. Sister Mental health problem Sister , in her 50 ` s Heart disease Myocardial infarction Brother Arthritis Brother Arthritis Mental health disorder Daughter Endometriosis Anxiety Fibromyalgia Son Anxiety Heart palpitations from anxiety Arthritis Depression PTSD (post-traumatic stress disorder) Back problem Grandfather (Maternal) Head and neck cancer Social History Preferred Language: Georgian Communication Ability: Impaired Visual Impairment: No Limitations Hearing Ability: Normal [employer]ness Racing Handicapper Required: No Beliefs That Will Affect Care: None marital status: Single Current Living Situation: Family Current Living Situation Comment: Lives with son current occupational status: 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 Other Information That Helps Us Care for You: No Feels Safe at Home: Yes Safety Concerns: Feels Safe At This Time Smoking Status: Former smoker Tobacco Type: cigarettes ; Age Started Using Tobacco: 21 ; Cigarettes Per Day: 0-1/2 PPD; VARIES ; Smoking End Date: 10/10/2019 ; Second Hand Exposure: No ; Hx Alcohol Use: No Hx Substance Use: No Review of Systems Review of Systems: The patient denies palpitations, cough, lower extremity swelling, sore throat, fevers, chills, sweats, diarrhea , constipation, abdominal pain, pelvic pain, blood in urine or stool, dysuria, urinary frequency or urgency, headache, memory loss, loss of consciousness, rash, abnormal bruising or bleeding, focal weakness in arms or legs, generalized arthralgias or myalgias, neck pain, or night sweats. The review of systems is otherwise negative other than for that already noted above, and at least 10 systems have been reviewed. Physical Exam Physical Exam: The patient is awake, alert and oriented 3, normocephalic and atraumatic, lying in bed and in no acute distress while laying still. HEENT--PERRL, EOMI, mucous membranes and oropharynx normal. Neck--supple. No JVD. No bruits. Thyroid normal, trachea midline, no adenopathy. Heart--normal S1 and S2. No murmurs, rubs or gallops. Lungs/chest wall--clear bilaterally, no respiratory distress, no accessory muscle use. Reproducible right-sided chest wall pain along ribs 8 through 11 laterally and posteriorly. Abdomen--normal bowel sounds and soft. Nontender. Nondistended. Extremities--no cyanosis or clubbing. No edema. Dermatologic--normal skin turgor, normal color, no abnormal lymph nodes, no rash. Neurologic--cranial nerves II through XII grossly intact. Rheumatologic--range of motion on right side limited due to pain Psychiatric--normal affect. Results & Data Results & Data ([facility]) Vital Signs (Past 12 Hours) Vital Signs Temp Pulse Resp BP Pulse Ox 11/01/19 21:01 79 20 11/01/19 21:00 76 20 177/101 H 11/01/19 20:30 71 24 95 11/01/19 20:01 72 24 96 11/01/19 20:00 65 24 162/75 H 96 11/01/19 19:30 73 25 H 96 11/01/19 19:01 79 23 97 11/01/19 19:00 73 20 142/71 H 97 11/01/19 18:30 74 25 H 97 11/01/19 18:01 77 25 H 11/01/19 18:00 78 25 H 169/89 H 11/01/19 17:30 79 26 H 11/01/19 17:00 84 23 169/97 H 11/01/19 16:30 82 12 95 11/01/19 16:04 148 H 26 H 96 11/01/19 16:00 155 H 21 158/97 H 96 11/01/19 15:33 98.1 F 88 18 171/97 H 95 Laboratory Results Laboratory Results WBC 12.26 K/uL (4.8-10.8) H 11/01/19 16:55 RBC 3.72 M/uL (4.2-5.4) L 11/01/19 16:55 Hgb 10.9 g/dL (12.0-16.0) L 11/01/19 16:55 Hct 32.4 % (37-47) L 11/01/19 16:55 MCV 87.1 fL (80-100) 11/01/19 16:55 MCH 29.3 pg (25-34) 11/01/19 16:55 MCHC 33.6 g/dL (32-36) 11/01/19 16:55 RDW Std Deviation 47.0 fL (36.4-46.3) H 11/01/19 16:55 RDW Coeff of Gracy 14.7 % (11.5-14.5) H 11/01/19 16:55 Plt Count 495 K/uL (130-400) H 11/01/19 16:55 MPV 7.8 fL (7.4-10.4) 11/01/19 16:55 Immature Gran % (Auto) 0.2 % 11/01/19 16:55 Neut % (Auto) 78.3 % 11/01/19 16:55 Lymph % (Auto) 13.5 % 11/01/19 16:55 Hodgeman % (Auto) 7.2 % 11/01/19 16:55 Eos % (Auto) 0.7 % 11/01/19 16:55 Baso % (Auto) 0.1 % 11/01/19 16:55 Immature Gran # (Auto) 0.03 K/uL (0.00-0.02) H 11/01/19 16:55 Neut # (Auto) 9.60 K/uL (1.4-6.5) H 11/01/19 16:55 Lymph # (Auto) 1.65 K/uL (1.2-3.4) 11/01/19 16:55 Hodgeman # (Auto) 0.88 K/uL (0.11-0.59) H 11/01/19 16:55 Eos # (Auto) 0.09 K/uL (0-0.5) 11/01/19 16:55 Baso # (Auto) 0.01 K/uL (0-0.2) 11/01/19 16:55 Sodium 132 mmol/L (136-145) L 11/01/19 16:55 Potassium 3.0 mmol/L (3.5-5.1) L 11/01/19 16:55 Chloride 98 mmol/L (98-107) 11/01/19 16:55 Carbon Dioxide 26 mmol/L (21-32) 11/01/19 16:55 Anion Gap 8.0 (3-11) 11/01/19 16:55 BUN 9 mg/dl (7-18) 11/01/19 16:55 Creatinine 0.57 mg/dl (0.6-1.2) L 11/01/19 16:55 Est Cr Clr Drug Dosing Not Reportable 11/01/19 16:55 Est GFR ( Amer) 115.2 11/01/19 16:55 Est GFR (Non-Af Amer) 99.4 11/01/19 16:55 BUN/Creatinine Ratio 16.0 (10-20) 11/01/19 16:55 Glucose 113 mg/dl (70-99) H 11/01/19 16:55 POC Glucose 108 mg/dl (70-99) H 11/02/19 00:00 Lactate 1.1 mmol/L (0.4-2.0) 11/01/19 16:55 Calcium 9.5 mg/dl (8.5-10.1) 11/01/19 16:55 Magnesium 1.6 mg/dl (1.8-2.4) L 11/01/19 16:55 Total Bilirubin 0.3 mg/dl (0.2-1) 11/01/19 16:55 AST 9 U/L (15-37) L 11/01/19 16:55 ALT 12 U/L (12-78) 04/07/20 16:55 Alkaline Phosphatase 111 U/L (45-117) 11/01/19 16:55 Troponin I < 0.015 ng/ml (0-0.045) 11/01/19 16:55 Total Protein 7.9 gm/dl (6.4-8.2) 11/01/19 16:55 Albumin 2.8 gm/dl (3.4-5.0) L 11/01/19 16:55 Globulin 5.1 gm/dl (2.5-4.0) H 11/01/19 16:55 Albumin/Globulin Ratio 0.6 (0.9-2) L 11/01/19 16:55 Lipase 41 U/L (73-393) L 11/01/19 16:55 Procalcitonin < 0.05 ng/ml (0-0.5) 11/01/19 16:55 TSH 0.803 uIu/ml (0.300-4.500) 11/01/19 16:55 Urine Color Yellow 11/01/19 16:15 Urine Appearance Clear (Clear) 11/01/19 16:15 Urine pH 7.5 (4.5-7.5) 11/01/19 16:15 Ur Specific [place] 1.007 (1.000-1.030) 11/01/19 16:15 Urine Protein Negative (Negative) 11/01/19 16:15 Urine Glucose (UA) Negative (Negative) 11/01/19 16:15 Urine Ketones Trace (Negative) H 11/01/19 16:15 Urine Blood Negative (Negative) 11/01/19 16:15 Urine Nitrite Negative (Negative) 11/01/19 16:15 Urine Bilirubin Negative (Negative) 11/01/19 16:15 Urine Urobilinogen Negative (Negative) 11/01/19 16:15 Ur Leukocyte Esterase Negative (Negative) 11/01/19 16:15 Urine WBC (Auto) 0 /hpf (0-5) 11/01/19 16:15 Urine RBC (Auto) 0-4 /hpf (0-4) 11/01/19 16:15 U Hyaline Cast (Auto) 0 /lpf (0-5) 11/01/19 16:15 U Epithel Cells (Auto) 5-10 /lpf (0-5) H 11/01/19 16:15 Urine Bacteria (Auto) Negative (Negative) 11/01/19 16:15 Diagnostic Findings [place], [place] [phone] XRay Report Patient: PROSPER ZALDIVAR Date: 11/01/19 MR#: [id number]: [id number] DAWN QUIROGA Acct ID:[id number]: Date: 1955[facility] Zip: [place] [address] Age: 63Location: ED Sex: F Room/Bed: Att Phy:Diagnosis: VOMITING, TOOTH INFECTION, DEHYDRATION [place] Phy: ERIN REYEService Date: 11/01/19 Fam Phy:Interpreting Phy: Edwin Agarwal MD Admit Phy: Ordering Phy: Prosper Fu DO cc: ~ XR chest 1V portable CLINICAL HISTORY: productive cough COMPARISON STUDY: Chest radiograph and chest CT June 15, 2019. FINDINGS: Lung volumes are normal. Lungs are clear. There is no pneumothorax or pleural effusion. Cardiac size is normal. Mediastinal contours are normal. There is no evidence for pulmonary edema. Left sided [id number] is in place. Nondisplaced acute right eighth rib fracture is noted. This is better depicted on the abdominal CT performed earlier today. IMPRESSION: 1. No acute cardiopulmonary findings. 2. Acute nondisplaced right eighth rib fracture. This fracture, in addition to several additional right-sided rib fractures, are better depicted on the CT of the abdomen and pelvis performed earlier today. Please see that report. ACT 112: Negative or not required by law. Electronically signed by: Edwin Agarwal M.D. 11/01/2019 5:23 PM Dictated: 11/01/19 1721 Transcribed: 11/01/19 1721 [place], [place] [phone] CT Scan Report Patient: PROSPER ZALDIVAR Date: 11/01/19 MR#: [id number]: [id number] DAWN QUIROGA Acct ID:[id number]: Date: 1955[facility] Zip: [place] [address] Age: 63Location: ED Sex: F Room/Bed: Att Phy:Diagnosis: VOMITING, TOOTH INFECTION, DEHYDRATION [place] Phy: Rocky REYES Date: 11/01/19 [facility] Phy:Interpreting Phy: Edwin Agarwal MD Admit Phy: Ordering Phy: Prosper Fu DO cc: ~ CT OF THE ABDOMEN AND PELVIS WITHOUT CONTRAST CLINICAL HISTORY: Right-sided abdominal pain. Fall. History of endometrial carcinoma. COMPARISON STUDY: CT of the abdomen and pelvis August 03, 2019. TECHNIQUE: Axial images of the abdomen and pelvis were obtained without IV contrast. Images were reviewed in the axial, sagittal, and coronal planes. Automated exposure control was utilized for the study. A dose lowering technique was utilized adhering to the principles of ALARA. FINDINGS: Imaged portions of the lower chest demonstrate multiple acute nondisplaced right-sided rib fractures. There are acute nondisplaced fractures of the posterior lateral right eighth and ninth ribs. There are acute nondisplaced fractures of the posterior and posterolateral aspects of the right 10th and 11th ribs. No pneumothorax is shown within visualized portions of the chest. Evaluation of the abdomen and pelvis is suboptimal on this unenhanced exam. There is no evidence for traumatic injury to the liver, spleen, adrenal glands, kidneys or pancreas. A water attenuation left renal lesion were shown to represent a cyst on prior contrast enhanced exam. No hemoperitoneum or pneumoperitoneum is present. There is no evidence for a bowel obstruction. There is no hydronephrosis. No biliary or pancreatic ductal dilatation is noted. There has been moderate increase in size of abdominal and pelvic lymphadenopathy since CT of August 03, 2019. A left common iliac node on image 225 measures 2.4 x 1.8 cm. It measured 1.5 x 1.[address] of August 03, 2019. Paraaortic lymph nodes have increased in size as well. A right common iliac node on image 229 measures 2 cm. It previously measured 1 cm. A left iliac node on image 281 measures 3.1 cm. It previously measured 1.7 cm. A left pelvic sidewall node on image 339 measures 2.9 cm. It previously measured 1.4 cm. The uterus is surgically absent. No acute pelvic or hip fracture is identified. Note is made of an acute nondisplaced fracture of the right transverse process of L1. IMPRESSION: 1. Acute nondisplaced fractures of the posterior lateral right eighth and ninth ribs and acute nondisplaced fractures of the posterior and posterolateral aspects of the right 10th and 11th ribs. 2. Acute nondisplaced fracture of the right transverse process of L1. 3. Moderate increase in abdominal and pelvic lymphadenopathy since CT of August 03, 2019 consistent with progression of kristy metastases. ACT 112: Negative or not required by law. Electronically signed by: Edwin Agarwal M.D. 11/01/2019 4:59 PM Dictated: 11/01/19 1644 Transcribed: 11/01/19 1644 [place], [place] [phone] CT Scan Report Patient: PROSPER ZALDIVAR Date: 11/01/19 MR#: [id number]: [id number] DAWN QUIROGA Acct ID:[id number]: Date: 1955ty Zip: [place] [address] Age: 63Location: ED Sex: F Room/Bed: Att Phy:Diagnosis: VOMITING, TOOTH INFECTION, DEHYDRATION [place] Phy: Rocky REYES Date: 11/01/19 Fam Phy:Interpreting Phy: Edwin Agarwal MD Admit Phy: Ordering Phy: Prosper Fu DO cc: ~ CT OF THE LUMBAR SPINE CLINICAL HISTORY: trauma, transverse process fracture COMPARISON STUDY: CT of the abdomen and pelvis June 21, 2019. TECHNIQUE: Helical axial images of the lumbar spine were obtained. Sagittal and coronal reconstructions were viewed. Automated exposure control was utilized for the study. A dose lowering technique was utilized adhering to the principles of ALARA. FINDINGS: Note is made of an acute nondisplaced fracture of the right transverse process of L1. No additional acute fractures within the lumbar spine are noted. There are no suspicious osseous lesions. There is moderate to severe multilevel facet arthrosis. The central canal and neural foramen are suboptimally assessed by CT. Retroperitoneal lymphadenopathy is better depicted on the CT of the abdomen and pelvis. Please see that report for further description. Sacroiliac joints are intact. IMPRESSION: 1. Acute nondisplaced fracture of the right transverse process of L1. 2. Retroperitoneal lymphadenopathy which is better depicted on the CT of the abdomen and pelvis. ACT 112: Negative or not required by law. Electronically signed by: Edwin Agarwal M.D. 11/01/2019 5:48 PM Dictated: 11/01/19 1745 Transcribed: 11/01/19 174 [place], [place] [phone] CT Scan Report Patient: PROSPER ZALDIVAR Date: 11/01/19 MR#: [id number]: [id number] DAWN QUIROGA Acct ID:[id number]: Date: 1955City Zip: [place] [address] Age: 63Location: ED Sex: F Room/Bed: Att Phy:Diagnosis: VOMITING, TOOTH INFECTION, DEHYDRATION [place] Phy: Rocky REYES Date: 11/01/19 Fam Phy:Interpreting Phy: Edwin Agarwal MD Admit Phy: Ordering Phy: Prosper Fu DO cc: ~ MAXILLOFACIAL CT WITHOUT CONTRAST CLINICAL HISTORY: recent dental abscesses COMPARISON STUDY: None. TECHNIQUE: A maxillofacial CT was performed without IV contrast. Coronal and sagittal reformats were viewed. Automated exposure control was utilized for the study. A dose lowering technique was utilized adhering to the principles of ALARA. FINDINGS: Evaluation for abscess is suboptimal on this unenhanced exam but no soft tissue abscess is noted. Multiple teeth are absent. There are numerous periapical lucencies/abscesses. The largest of which is a 1.2 cm lucency associated with the medial and lateral left maxillary incisors. Note is made of periapical lucencies/abscesses associated with several right mandibular premolar and molars. There are multiple cavities. Mild sinus mucosal thickening is noted. There is no acute facial fracture. Multiple dental amalgams are present. Mastoid air cells are clear. Orbits are unremarkable. IMPRESSION: 1. Numerous periapical lucencies/abscesses and cavities, as described above. No associated soft tissue abscess on this unenhanced exam. 2. No acute facial fracture. ACT 112: Negative or not required by law. Electronically signed by: Edwin Agarwal M.D. 11/01/2019 6:42 PM Dictated: 11/01/191832 Transcribed: 11/01/191832 Code Status & VTE Plan Code Status Full code VTE Prophylaxis Plan VTE Prophylaxis will be ordered: Yes PG Care Time/CCT Total # of Minutes Spent Total Time Spent with Patient: Total time spent is greater than 50% in coordination of care (as documented) at patient's floor/unit and/or counseling patient: Coding Level of Care Code 67811 OBS Care - Level 3 Diagnoses Dental infection K04.7 Closed L1 vertebral fracture S32.019A Multiple rib fractures involving four or more ribs S22.49XA DM type 2 (diabetes mellitus, type 2) E11.9 HTN (hypertension) I10 Sixth nerve palsy of right eye H49.21 Hyperlipidemia E78.5
[2019-11-01] MEDS: NSS + 20MEQ KCL 20 MEQ/1,000 ML BAG IV SCH (23:24)
[2019-11-02] MEDS: INSULIN ASPART 100 UNITS/ML 3 ML PEN SC SCH ×5 (00:09→20:59)
[2019-11-02] MEDS: PIPERACILLIN/TAZOBACTAM 3.375 GM in DEXTROSE 5% 100 ML IV SCH ×3 (04:07→20:04)
[2019-11-02 05:57] LABS: Basophils # (auto) 0.01 K/uL (0-0.2); Basophils % (auto) 0.1 %; Eosinophils # (auto) 0.12 K/uL (0-0.5); Eosinophils % (auto) 1.5 %; Hematocrit (blood only) 30.4 % (37-47); Hemoglobin 9.9 g/dL (12.0-16.0); Immature Granulocytes # (auto) 0.03 K/uL (0.00-0.02); Immature Granulocytes % (auto) 0.4 %; Lymphocytes # (auto) 1.23 K/uL (1.2-3.4); Mean Corpuscular Hemoglobin 28.5 pg (25-34); Mean Corpuscular Hgb Conc 32.6 g/dL (32-36); Mean Corpuscular Volume 87.6 fL (80-100); Monocytes # (auto) 0.83 K/uL (0.11-0.59); Monocytes % (auto) 10.1 %; Neutrophils # (auto) 5.98 K/uL (1.4-6.5); Neutrophils % (auto) 72.9 %; Platelet Count 438 K/uL (130-400); RDW Coefficient of Variation 14.8 % (11.5-14.5); RDW Standard Deviation 47.2 fL (36.4-46.3); Red Blood Count 3.47 M/uL (4.2-5.4)
[2019-11-02 06:09] LABS: Estimated Average Glucose 171 mg/dl; Hemoglobin A1C 7.6 % (4.5-5.6)
[2019-11-02 06:33] LABS: Albumin Level 2.5 gm/dl (3.4-5.0); BUN Creatinine Ratio 13.5 (10-20); Calcium 8.9 mg/dl (8.5-10.1); Creatinine Clr Calc Pharmacy 85.1 ml/min; Est GFR (African American) 113.9; Est GFR (Non-African American) 98.2; Magnesium 1.8 mg/dl (1.8-2.4); Potassium 3.5 mmol/L (3.5-5.1)
[2019-11-02] MEDS: NSS + 20MEQ KCL 20 MEQ/1,000 ML BAG IV SCH ×2 (08:39→18:21)
[2019-11-02] MEDS: LIDOCAINE 5% 1 PATCH TD SCH (08:40)
[2019-11-02] MEDS: FAMOTIDINE 20 MG in SYRINGE 3 ML IV SCH ×2 (08:43→21:41)
--- NOTE | 2019-11-02 08:59 | Surgery Consultation ---
Date of Consultation November 02, 2019 Mrs. Lucio has been having pain and drainage from a dental infection involving the lower right and upper left anterior area. I was able to obtain the dental records from her dentist. The plan was to extract # 30 and either extraction vs root canal of # 10. She was placed on oral antibiotics and set up for the procedure but then due to COVID the procedure was postponed. The pain, swelling and drainage re-occurred, so she was placed back on the Augmentin. She was recently D/C from [facility] on October 27 and told to call an Oral Surgeon. Her son called me on Thursday afternoon, I reviewed the dental office records on Thursday Her son called me again Thursday informing me that his mother is being taken to [facility] ED due to N/V and weakness. Both Mrs. Lucio and her son are concerned that the pus draining from the 1 cm cyst and the large periapical abscess under # 30 is causing her to be nauseous. Despite 2-3 courses of oral antibiotics these dental infection continue to drain and cause pain. Given her underlying medical co-morbidities treatment of the infections are medically indicated. 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 Given the current COVID guidelines--non surgical treatment was tried for over 1 month and this failed to resolve or control the problem. Patient is still having infectious drainage causing her GI upset and pain. Oral Exam There is a fractured # 30 that is abrading her cheek with subperiosteal swelling and tenderness. There is expansion and drainage via a fistula of area # 10-11 upper left with tenderness to facial and palatal areas. Overall the oral exam is all WNL. No lesions of concern Oral care is good and well maintained. TMJ- all WNL good range of movement Soft tissue except as noted above is all WNL Present Complaint: Drainage of brown pus from upper left anterior cyst as seen on CT scan 1.2 CM bony defect. Chart reviewed discussed case with ED staff last night. CT scan--reviewed Fractured and decayed lower right first molar # 30 1 cm defect left maxilla involving #9-10-11 with 1.2 radiolucent defect, this corresponds to fistula that is draining from the dental office notes. Based on ongoing symptoms and failure to control infection and drainage with out patient oral antibiotics the cause of the infection ( necrotic teeth ) must be taken care of. Oral antibiotics are no longer an option after 2-3 rounds of Augmentin w/o resolve. My plan is to set her up for the procedure once she is cleared medically for general anesthesia. In view of current COVID issues this is NOT elective but an urgent/emergnent procedure. With the extraction of the necrotic infection, drainage, pain and swelling will continue. The sooner we can remove the involved teeth the sooner she can be D/C and followed as outpatient. PLAN surgical ext of # 05-06-30, excision of 1.2 cm cyst of left maxilla with general anesthesia. I will plan for tomorrow. Thank you Shawn Lozoya History of Present Illness Attending Physician: Delmi Luna DO Allergies Allergy/AdvReac Type Severity Reaction Status Date / Time Iodinated Contrast Media Allergy Severe Swelling Verified 11/01/19 16:47 [Iodinated Contrast- Oral of and IV Dye] Lip/Tongue/Throat loratadine [From Claritin] Allergy Severe Anaphylaxis Verified 11/01/19 16:47 codeine Allergy Intermediate Tachycardia Verified 11/01/19 16:47 adhesive AdvReac Intermediate Hives Verified 11/01/19 16:47 Patient History Medical History Acute blood loss anemia (Inactive) Anemia Anxiety Diabetes mellitus, type 2 NIDDM Endometrial cancer Excessive vaginal bleeding (Inactive) History of kidney stones Hyperlipidemia Hypertension (Inactive) Hypomagnesemia (Acute) Perimenopausal menorrhagia Sixth nerve palsy of right eye SOB (shortness of breath) (Inactive) Vaginal bleeding Surgical History H/O: hysterectomy History of anesthesia reaction SLOW TO WAKE; AGGRESSIVE BEHAVIOR History of cystoscopy History of dilatation and curettage History of esophagogastroduodenoscopy (EGD) History of lithotripsy History of tubal ligation S/P laparoscopic assisted vaginal hysterectomy (LAVH) WITH BSO AND LYMPH NODE REMOVALS surgery 11-30-2018 Family History Aunt Family history of diabetes mellitus Grandmother (Maternal) Family history of diabetes mellitus Mother Shingles Lung cancer Cystic kidney disease Stroke Father , age 63 Heart disease had angina Gangrene Sister No problems noted. Sister Mental health problem Sister , in her 50 ` s Heart disease Myocardial infarction Brother Arthritis Brother Arthritis Mental health disorder Daughter Endometriosis Anxiety Fibromyalgia Son Anxiety Heart palpitations from anxiety Arthritis Depression PTSD (post-traumatic stress disorder) Back problem Grandfather (Maternal) Head and neck cancer Social History Preferred Language: Citizen Of [place] Communication Ability: Effective Visual Impairment: No Limitations Hearing Ability: Normal Stacker Attendant Required: No Beliefs That Will Affect Care: None marital status: Single Current Living Situation: Family Current Living Situation Comment: Lives with son 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 occupational status: 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 Other Information That Helps Us Care for You: No Feels Safe at Home: Yes Safety Concerns: Feels Safe At This Time Smoking Status: Former smoker Tobacco Type: cigarettes ; Age Started Using Tobacco: 21 ; Cigarettes Per Day: 0-1/2 PPD; VARIES ; Smoking End Date: 10/10/2019 ; Second Hand Exposure: No ; Hx Alcohol Use: No Hx Substance Use: No Results & Data Vital Signs (Past 12 Hours) Vital Signs Temp Pulse Pulse Resp BP BP Pulse Ox 11/02/19 06:50 36.6 C 66 16 166/84 H 94 11/01/19 23:35 36.7 C 61 18 142/71 H 95 11/01/19 22:00 37.1 C 68 18 154/78 H 94 11/01/19 21:01 79 20 11/01/19 21:00 76 20 177/101 H PG Care Time/CCT Total # of Minutes Spent Total Time Spent with Patient: Total time spent is greater than 50% in coordination of care (as documented) at patient's floor/unit and/or counseling patient: Coding Level of Care Code 05510 Initial Inpt Care Lvl 3
--- NOTE | 2019-11-02 12:37 | Hospitalist Progress Note ---
Date of Service November 02, 2019 Assessment & Plan (1) Dental infection: Admits to medical surgical floor, planning for OR with Dr. Slaughter--date not listed yet Zosyn 3.375 mg IV every 8 hours Zofran 4 mg IV every 6 hours as needed. Famotidine 20 mg IV every 12 hours. NSS + KCl 20 mEq at 100 mils per hour Acetaminophen 650 mg p.o. every 6 hours as needed mild pain or temperature. CT face: no soft tissue abscess, but noted for periapical abscess (2) Closed L1 vertebral fracture: May apply Lidoderm patch over the site as needed as well (3) Multiple rib fractures involving four or more ribs: Fractures involving posterior lateral 8, 9, 10 and 11th ribs- Apply Lidoderm patch to affected area per protocol. (4) DM type 2 (diabetes mellitus, type 2): Hold metformin. Placed on Accu-Cheks before meals and at bedtime/every 6 hours, with NovoLog coverage per per scale (5) HTN (hypertension): Hold lisinopril for procedure in the a.m. (6) Sixth nerve palsy of right eye: Reported due to diabetes mellitus, and should slowly improve over time. (7) Hyperlipidemia: Atorvastatin on hold for procedure in a.m. 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 Will need addressed with heme/onc on d/c (10) DVT prophylaxis: SCDs given OR status Admission and Anticipated Discharge Date Admission Date: November 01, 2019 Anticipated date of discharge: 11/03/19 Subjective Ongoing pain related to lower R and upper L teeth. Pain on L moves into her ma xillary sinus. Ongoing nausea. Feels her speech issue is better, but still not WNL. Pt denies fever, SOB, chest pain, abd pain, c/d, LE pain or swelling. Review of Systems Review of Systems: Pertinent positives and negatives reviewed in HPI--all others negative Physical Exam Constitutional: WD/WN, vitals as above Eyes: normal visual palacios by confrontation and + anicteric sclerae Neck: normal visual inspection and trachea midline Respiratory: normal respiratory effort, lungs clear to auscultation Cardiovascular: Rate/Rhythm: regular rate and regular rhythm Gastrointestinal (Abdomen): Inspection/Auscultation: abdomen not distended Percussion/Palpation: abdomen soft; abdomen nontender Musculoskeletal: Head/Neck/Chest: normocephalic and head atraumatic negative for edema, peripheral pulses intact Skin: no rashes, warm and dry Neurologic: awake; not confused Speech / Cognition: + abnormal speech (slightly slurred still, but improved over last week) Psychiatric: A+Ox3, euthymic affect Results & Data Results & Data ([facility]) Vital Signs (Past 12 Hours) Vital Signs Temp Pulse Resp BP Pulse Ox 11/02/19 06:50 36.6 C 66 16 166/84 H 94 PG Care Time/CCT Total # of Minutes Spent Total Time Spent with Patient: Total time spent is greater than 50% in coordination of care (as documented) at patient's floor/unit and/or counseling patient: Coding Level of Care Code 02694 Subseq Hosp Care Lvl 3 Diagnoses Dental infection K04.7 Closed L1 vertebral fracture S32.019A Multiple rib fractures involving four or more ribs S22.49XA DM type 2 (diabetes mellitus, type 2) E11.9 HTN (hypertension) I10 Sixth nerve palsy of right eye H49.21 Hyperlipidemia E78.5 Slurred speech R47.[address] of the abdomen R93.5 DVT prophylaxis Z29.9
[2019-11-02] MEDS: lisinopriL 40 MG TAB PO SCH (15:43)
[2019-11-02] MEDS: ACETAMINOPHEN 325 MG TAB PO PRN ×2 (16:01→21:56)
[2019-11-02] MEDS: ONDANSETRON INJ 2 MG/ML 2 ML VIAL IV PRN (16:02)
[2019-11-02] MEDS ORDERED: Nursing to Pharmacy Communication ONE (16:17)
[2019-11-02] MEDS ORDERED: HEPARIN 100 UNIT/ML 5ML FLUSH FLUSH PRN (23:35)
[2019-11-03] MEDS: INSULIN ASPART 100 UNITS/ML 3 ML PEN SC SCH ×4 (00:37→21:28)
[2019-11-03] MEDS: NSS + 20MEQ KCL 20 MEQ/1,000 ML BAG IV SCH ×2 (04:15→17:29)
[2019-11-03] MEDS: PIPERACILLIN/TAZOBACTAM 3.375 GM in DEXTROSE 5% 100 ML IV SCH ×3 (04:15→21:12)
[2019-11-03] MEDS: ACETAMINOPHEN 325 MG TAB PO PRN ×2 (05:43→20:43)
[2019-11-03 06:52] LABS: Basophils # (auto) 0.02 K/uL (0-0.2); Basophils % (auto) 0.3 %; Eosinophils # (auto) 0.24 K/uL (0-0.5); Eosinophils % (auto) 3.4 %; Hematocrit (blood only) 32.4 % (37-47); Hemoglobin 10.4 g/dL (12.0-16.0); Immature Granulocytes # (auto) 0.02 K/uL (0.00-0.02); Immature Granulocytes % (auto) 0.3 %; Lymphocytes # (auto) 1.41 K/uL (1.2-3.4); Lymphocytes % (auto) 19.8 %; Mean Corpuscular Hemoglobin 28.5 pg (25-34); Mean Corpuscular Hgb Conc 32.1 g/dL (32-36); Mean Corpuscular Volume 88.8 fL (80-100); Mean Platelet Volume 8.2 fL (7.4-10.4); Monocytes % (auto) 11.2 %; Neutrophils # (auto) 4.64 K/uL (1.4-6.5); Platelet Count 472 K/uL (130-400); RDW Coefficient of Variation 14.7 % (11.5-14.5); RDW Standard Deviation 47.4 fL (36.4-46.3); Red Blood Count 3.65 M/uL (4.2-5.4); White Blood Count 7.13 K/uL (4.8-10.8)
[2019-11-03 07:00] LABS: Albumin Level 2.6 gm/dl (3.4-5.0); BUN Creatinine Ratio 8.1 (10-20); Calcium 9.4 mg/dl (8.5-10.1); Creatinine Clr Calc Pharmacy 71.7 ml/min; Est GFR (African American) 107.6; Est GFR (Non-African American) 92.9; Magnesium 1.8 mg/dl (1.8-2.4); Phosphorus 3.1 mg/dl (2.5-4.9); Potassium 4.5 mmol/L (3.5-5.1)
[2019-11-03] MEDS: FAMOTIDINE 20 MG in SYRINGE 3 ML IV SCH ×2 (08:24→21:07)
[2019-11-03] MEDS: LIDOCAINE 5% 1 PATCH TD SCH (08:25)
[2019-11-03] MEDS: lisinopriL 40 MG TAB PO SCH (08:29)
--- NOTE | 2019-11-03 10:17 | Electrocardiogram Report ---
Test Reason : Blood Pressure : / mmHG Vent. Rate : 078 BPM Atrial Rate : 078 BPM P-R Int : 178 ms QRS Dur : 072 ms QT Int : 440 ms P-R-T Axes : 071 046 084 degrees QTc Int : 501 ms Normal sinus rhythm Low voltage QRS Cannot rule out Anteroseptal infarct (cited on or before 24-OCT-2019) Abnormal ECG When compared with ECG of 24-OCT-2019 14:41, Questionable change in initial forces of Anterior leads Confirmed by Jaspreet Ordoñez ([id number]) on 11/03/2019 10:17:29 AM Referred By: REFERRED SELF Confirmed By:Jaspreet Ordoñez
--- NOTE | 2019-11-03 13:15 | Hospitalist Progress Note ---
Date of Service November 03, 2019 Assessment & Plan (1) Dental infection: Continue IV Zosyn as ordered. Patient for multiple tooth extractions per dental surgery today. Patient is currently n.p.o. Postoperatively, may be able to switch over to oral antibiotics within the next 24 hours. (2) Closed L1 vertebral fracture: May apply Lidoderm patch over the site as needed as well (3) Multiple rib fractures involving four or more ribs: Fractures involving posterior lateral 8, 9, 10 and 11th ribs- Apply Lidoderm patch to affected area per protocol. (4) DM type 2 (diabetes mellitus, type 2): Hold metformin. Placed on Accu-Cheks before meals and at bedtime/every 6 hours, with NovoLog coverage per per scale (5) HTN (hypertension): Blood pressure mildly elevated, lisinopril has been held this morning. We will continue to monitor once back on this medication. (6) Sixth nerve palsy of right eye: Reported due to diabetes mellitus, and should slowly improve over time. (7) Hyperlipidemia: Atorvastatin on hold for procedure in a.m. (8) Slurred speech: Improving, recent admission for same with full neuro work-up neg Seen by neurology on that admission who felt this could be stuttering due to anxiety (9) Abnormal CT of the abdomen: Noted for Moderate increase in abdominal and pelvic lymphadenopathy since CT of August 03, 2019 consistent with progression of kristy metastases. Will need addressed with heme/onc on d/c (10) DVT prophylaxis: SCDs given OR status Admission and Anticipated Discharge Date Admission Date: November 01, 2019 Anticipated date of discharge: 11/03/19 Subjective Patient is awake and alert. No complaints. Blood pressure mildly elevated. Has been afebrile overnight. Currently n.p.o. for presumed OR with dental surgery later today. Physical Exam Constitutional: cooperative; no acute distress Neck: trachea midline, no thyromegaly Respiratory: normal respiratory effort Auscultation: lungs clear to auscultation bilaterally; no crackles, no rales, no rhonchi and no wheezes Cardiovascular: Rate/Rhythm: regular rate and regular rhythm Heart Sounds: normal S1 and normal S2 Gastrointestinal (Abdomen): Inspection/Auscultation: abdomen normal to inspection Percussion/Palpation: abdomen soft; abdomen nontender, no guarding, abdomen not rigid and no hepatosplenomegaly Skin: no rashes, warm and dry Results & Data Results & Data ([facility]) Vital Signs (Past 12 Hours) Vital Signs Temp Pulse Resp BP Pulse Ox 11/03/19 08:26 166/80 H 11/03/19 07:07 36.6 C 63 16 185/80 H 99 PG Care Time/CCT Total # of Minutes Spent Total Time Spent with Patient: Total time spent is greater than 50% in coordination of care (as documented) at patient's floor/unit and/or counseling patient: Coding Level of Care Code 89360 Subseq Hosp Care Lvl 2 Diagnoses Dental infection K04.7 Closed L1 vertebral fracture S32.019A Multiple rib fractures involving four or more ribs S22.49XA DM type 2 (diabetes mellitus, type 2) E11.9 HTN (hypertension) I10 Hypertension type: essential hypertension Sixth nerve palsy of right eye H49.21 Hyperlipidemia E78.5 Slurred speech R47.[address] of the abdomen R93.5 DVT prophylaxis Z29.9 (1) HTN (hypertension) Hypertension type: essential hypertension Qualified Code(s): I10 - Essential (primary) hypertension
[2019-11-03] MEDS ORDERED: ONDANSETRON INJ 2 MG/ML 2 ML VIAL IV PRN (13:22)
[2019-11-03] MEDS ORDERED: ATROPINE SULFATE 0.1 MG/ML 10ML SYR IV PRN (13:22)
[2019-11-03] MEDS ORDERED: fentaNYL citrate 100 MCG/2 ML VIAL IV PRN (13:22)
[2019-11-03] MEDS ORDERED: ePHEDrine sulfate 50 MG/ML AMP IV PRN (13:22)
--- NOTE | 2019-11-03 13:22 | History & Physical Bridge Note ---
Date of Service November 03, 2019 History & Physical Bridge Note I have examined the patient, reviewed the History & Physical and in the interval since the performance of the History & Physical I have noted the following changes of clinical significance: no changes noted. I will plan surgery now in OR. Extraction or # 10 excision of 1 cm bone cyst/ Ext of # 30 Reviewed Hospitalist notes and reviewed treatment plan with Leslie.
--- NOTE | 2019-11-03 13:30 | Anesthesiology Consultation ---
Date of Service November 03, 2019 Assessment & Plan (1) Encounter for pre-operative examination: Chart Review Chart Review: Acceptable Risk for Surgery and Patient NOT seen in Pre Admission Testing Consults Requested none History Surgery Operation Date: 11/03/19 12:45 Proposed Procedures p Incision and Drainage Removal of Cyst, - Shawn Lozoya DMD s Extraction of Tooth #9 and #30 - Shawn Lozoya DMD Height/Weight Height: 5 ft Weight: 68.039 kg Allergies Allergy/AdvReac Type Severity Reaction Status Date / Time Iodinated Contrast Media Allergy Severe Swelling Verified 11/01/19 16:47 [Iodinated Contrast- Oral of and IV Dye] Lip/Tongue/Throat loratadine [From Claritin] Allergy Severe Anaphylaxis Verified 11/01/19 16:47 codeine Allergy Intermediate Tachycardia Verified 11/01/19 16:47 adhesive AdvReac Intermediate Hives Verified 11/01/19 16:47 Medications Home Medications Medication Instructions Recorded Confirmed Last Taken atorvastatin 10 mg PO HS 10/05/18 11/01/19 10/24/19 metformin [Glucophage] 1,000 mg PO BID 10/05/18 11/01/19 10/23/19 ipratropium-albuterol 3 ml NEB Q4H PRN 08/24/19 11/01/19 Unknown chlorpheniramine maleate 4 mg PO Q6H PRN 10/24/19 11/01/19 Unknown [ChlorTabs] diphenhydramine HCl [Benadryl] 25 mg PO Q6H PRN 10/24/19 11/01/19 10/24/19 docusate sodium [Colace] 100 mg PO BID PRN 10/24/19 11/01/19 10/24/19 lorazepam 0.5 mg PO TID PRN 10/24/19 11/01/19 Unknown lisinopril 40 mg PO DAILY #30 tab 10/28/19 11/01/19 Unknown amoxicillin-pot clavulanate 1 tab PO BID 11/01/19 11/01/19 Unknown meclizine 25 mg PO Q6H PRN 11/01/19 11/01/19 Unknown sodium chloride [Saline Mist] 2 sprays INTRANASAL QID PRN 11/01/19 11/01/19 Unknown Active Medications Generic Name Dose Route Start Last Admin Trade Name Freq PRN Reason Stop Dose Admin Acetaminophen 650 mg 11/01/19 21:25 11/03/19 05:43 Tylenol PO 12/01/19 21:24 650 mg Q4H PRN Administration pain/fever Piperacillin Sod/Tazobactam 115 mls @ 28.75 mls/hr 11/02/19 04:00 11/03/19 12:25 Sod 3.375 gm/ Dextrose IV 11/12/19 03:59 28.8 mls/hr Q8H JENNIFER Administration Protocol Potassium Chloride/Sodium Chloride 20 meq in 1,000 mls @ 100 mls/hr 11/01/19 22:45 11/03/19 06:26 Normal Saline W/20 Meq Kcl IV 12/01/19 22:44 100 mls/hr .Q10H JENNIFER Infusion Famotidine 20 mg/ Syringe 5 mls @ 2.5 mls/min 11/02/19 09:00 11/03/19 08:24 IV 12/02/19 08:59 2.5 mls/min Q12H JENNIFER Administration Insulin Aspart 0 units 11/02/19 00:00 11/03/19 12:15 Novolog Flexpen SC 12/02/19 00:00 Not Given Q6 JENNIFER Lidocaine 1 patch 11/02/19 09:00 11/03/19 08:25 Lidoderm 5% TD 12/02/19 08:59 1 patch QAM JENNIFER Administration Lisinopril 40 mg 11/02/19 15:00 11/03/19 08:29 Zestril PO 12/02/19 14:59 40 mg DAILY JENNIFER Administration Miscellaneous 1 ea 11/02/19 21:00 11/02/19 21:57 Remove Lidoderm Patch N/A 12/02/19 20:59 1 ea DAILY@2100 JENNIFER Administration Ondansetron HCl 4 mg 11/01/19 21:25 11/02/19 16:02 Zofran IV 12/01/19 21:24 4 mg Q6H PRN Administration Nausea NPO Date Last Intake of Fluids: 11/02/19 Time Last Intake of Fluids: 23:59 Last Intake of Fluids Comment: sip of water with meds this am Date Last Intake of Solids: 11/02/19 Time Last Intake of Solids: 18:00 Past Medical History Medical History Acute blood loss anemia (Inactive) Anemia Anxiety Diabetes mellitus, type 2 NIDDM Endometrial cancer Excessive vaginal bleeding (Inactive) History of kidney stones Hyperlipidemia Hypertension (Inactive) Hypomagnesemia (Acute) Perimenopausal menorrhagia Sixth nerve palsy of right eye SOB (shortness of breath) (Inactive) Vaginal bleeding recentworkup for cva symptoms negative. also cxr no evidence of pneumothorax Exercise / Class Metabolic Activity III < 4 Walking/Shop/Light housework Past Family History Family History Aunt Family history of diabetes mellitus Grandmother (Maternal) Family history of diabetes mellitus Mother Shingles Lung cancer Cystic kidney disease Stroke Father , age 63 Heart disease had angina Gangrene Sister No problems noted. Sister Mental health problem Sister , in her 50 ` s Heart disease Myocardial infarction Brother Arthritis Brother Arthritis Mental health disorder Daughter Endometriosis Anxiety Fibromyalgia Son Anxiety Heart palpitations from anxiety Arthritis Depression PTSD (post-traumatic stress disorder) Back problem Grandfather (Maternal) Head and neck cancer Past Surgical History Surgical History H/O: hysterectomy History of anesthesia reaction SLOW TO WAKE; AGGRESSIVE BEHAVIOR History of cystoscopy History of dilatation and curettage History of esophagogastroduodenoscopy (EGD) History of lithotripsy History of tubal ligation S/P laparoscopic assisted vaginal hysterectomy (LAVH) WITH BSO AND LYMPH NODE REMOVALS surgery 11-30-2018 Past Anesthesia History No Hx of Anesthesia Complications and No Family Hx of Anesthesia Complications History of PONV No Hx of PONV and No Hx of Motion Sickness Social History Smoking Status: Former smoker tobacco type: cigarettes Smoking cigarettes per day: 0-1/2 PPD; VARIES Smoking End Date: 10/10/2019 Hx Alcohol Use: Yes Alcohol type: wine alcohol intake frequency: holidays/special occasions only Hx Substance Use: No substance use type: does not use Last Used Substance: Unknown Physical Exam Vital Signs Last Vital Signs Temp 36.9 C 11/03/19 13:05 Pulse 67 11/03/19 13:05 Resp 20 11/03/19 13:05 BP 192/80 H 11/03/19 13:05 Pulse Ox 97 11/03/19 13:05 Testing Laboratory Results 11/03/19 05:20 11/03/19 05:20 Hemoglobin A1c 7.6 % (4.5-5.6) H 11/02/19 05:38 Urine Color Yellow 11/01/19 16:15 Urine Appearance Clear (Clear) 11/01/19 16:15 Urine pH 7.5 (4.5-7.5) 11/01/19 16:15 Ur Specific [place] 1.007 (1.000-1.030) 11/01/19 16:15 Urine Protein Negative (Negative) 11/01/19 16:15 Urine Glucose (UA) Negative (Negative) 11/01/19 16:15 Urine Ketones Trace (Negative) H 11/01/19 16:15 Urine Nitrite Negative (Negative) 11/01/19 16:15 Ur Leukocyte Esterase Negative (Negative) 11/01/19 16:15 Urine WBC (Auto) 0 /hpf (0-5) 11/01/19 16:15 Urine RBC (Auto) 0-4 /hpf (0-4) 11/01/19 16:15 U Hyaline Cast (Auto) 0 /lpf (0-5) 11/01/19 16:15 U Epithel Cells (Auto) 5-10 /lpf (0-5) H 11/01/19 16:15 Urine Bacteria (Auto) Negative (Negative) 11/01/19 16:15 11/03/19 11/03/19 11/03/19 13:18 12:09 07:29 POC Glucose 100 H 89 95 11/03/19 05:47 POC Glucose 88 Electrocardiogram nsr. Chest X-Ray no pneumo
[2019-11-03] MEDS ORDERED: LIDOCAINE HCL 2% 2 ML VIAL/AMP(20MG/ML) INFIL ONE (13:31)
[2019-11-03] MEDS ORDERED: ONDANSETRON INJ 2 MG/ML 2 ML VIAL ONE (13:31)
[2019-11-03] MEDS ORDERED: LARYING-O-JET KIT (LTA) ONE (13:31)
[2019-11-03] MEDS ORDERED: GLYCOPYRROLATE 0.2 MG/ML VIAL ONE (13:31)
[2019-11-03] MEDS ORDERED: PROPOFOL IV EMULSION 10 MG/ML 20 ML VIAL IV ONE (13:31)
[2019-11-03] MEDS ORDERED: ROCURONIUM BROMIDE 10 MG/ML 5 ML VIAL ONE (13:31)
[2019-11-03] MEDS ORDERED: ePHEDrine sulfate 50 MG/ML SYR ONE (13:31)
[2019-11-03] MEDS ORDERED: DEXAMETHASONE SOD INJ 4 MG/ML VIAL ONE (13:31)
[2019-11-03] MEDS ORDERED: NEOSTIGMINE METHYLSULFATE 5 MG/5 ML SYR ONE (13:31)
[2019-11-03] MEDS ORDERED: MIDAZOLAM HCL 1 MG/ML 2ML VIAL ONE (13:32)
[2019-11-03] MEDS ORDERED: fentaNYL citrate 100 MCG/2 ML VIAL ONE (13:32)
[2019-11-03] MEDS ORDERED: BUPIVACAINE/EPINEPHRINE 0.5% 1:200,000 1.8 ML CARP ONE (13:39)
[2019-11-03] MEDS ORDERED: CHLORHEXIDINE GLUCONATE 0.12% 480 ML ONE (13:40)
[2019-11-03] MEDS ORDERED: SUCCINYLCHOLINE CHLORIDE 20 MG/ML 10 ML VIAL ONE (14:39)
[2019-11-03] MEDS ORDERED: ePHEDrine sulfate 50 MG/ML AMP ONE (14:39)
[2019-11-03] MEDS ORDERED: LABETALOL HCL IV 5 MG/ML 20ML IV ONE ×2 (14:43→16:21)
[2019-11-03] MEDS ORDERED: BACITRACIN OINT 15 GM TUBE ONE (15:08)
--- NOTE | 2019-11-03 15:29 | Post Operative Brief Note ---
PG Immediate Post Op with CF Date of Surgery November 03, 2019 Pre & Post Diagnosis Operation Date: 11/03/19 12:45 Pre-Op Diagnosis: DENTAL INFECTION,MULTIPLE RIB FRACTURES Post-Op Diagnosis: DENTAL INFECTION,MULTIPLE RIB FRACTURES I identified the patient and participated in the time-out.: Yes Procedure Operation Date: 11/03/19 12:45 Actual Procedures p Incision and Drainage Removal of Cyst,(Not Applicable) - Shawn Lozoya DMD s Extraction of Tooth #10 and #30 Currettment of cyst # 30 and large 1.5 cm cyst of hard palate (Not Applicable) - Shawn Lozoya DMD Surgeon Shawn Lozoya DMD Residential Solar Sales Consultant none Estimated Blood Loss 5 Findings Consistent with Post-Op Diagnosis Specimens Specimen Description: A. Lower jaw/cyst infection B.Infected cyst, left maxilla
--- NOTE | 2019-11-03 15:35 | XRay Report ---
XR skull <4V CLINICAL HISTORY: 63 years-old Female presenting with Incorrect surgical count. TECHNIQUE: Single frontal view of the skull was obtained. COMPARISON: None. FINDINGS: Endotracheal tube terminates in the mid thoracic trachea. Left internal jugular Mediport, which has b een accessed. Artifact degrades evaluation as well as suboptimal positioning. Allowing for this, apart from support tubing, amalgam, and a spacer in the oral cavity, no unexpected radiopaque foreign body. IMPRESSION: Allowing for image quality, no unexpected radiopaque foreign body. ACT 112: Negative or not required by law. Electronically signed by: Marcus Hernandez M.D. 11/03/2019 3:33 PM
[2019-11-03] MEDS ORDERED: LABETALOL HCL IV 5 MG/ML 20ML IV PRN (16:17)
--- NOTE | 2019-11-03 17:14 | Anesthesiology Progress Note ---
Date of Service November 03, 2019 Anesthesia Post Procedure Vital Signs Vital Signs: Temp Pulse Pulse Pulse Resp BP Pulse Ox 11/03/19 16:55 36.4 C L 67 20 173/90 H 94 11/03/19 16:45 72 18 182/94 H 94 11/03/19 16:35 64 22 167/84 H 94 11/03/19 16:25 74 20 179/95 H 100 11/03/19 16:15 77 20 177/109 H 100 11/03/19 16:05 78 22 181/98 H 100 11/03/19 15:57 36.5 C 82 20 188/109 H 100 11/03/19 13:05 36.9 C 67 20 192/80 H 97 11/03/19 08:26 166/80 H 11/03/19 07:07 36.6 C 63 16 185/80 H 99 11/02/19 23:59 36.5 C 50 L 16 176/76 H 96 11/02/19 21:46 54 L 171/92 H 11/02/19 19:59 64 181/95 H Pain Intensity Right Ribs: Pain Intensity: 5 Transfer of Care Handoff Completed per policy Notes Mental Status: alert / awake / arousable and participated in evaluation Patient Amnestic to Procedure: Yes Nausea / Vomiting: adequately controlled Pain: adequately controlled Airway Patency, RR, SpO2: stable & adequate BP & HR: stable & adequate Hydration State: stable & adequate Anesthetic Complications: no major complications apparent and Pt Satisfied with anesthetic care
[2019-11-03] MEDS ORDERED: Nursing to Pharmacy Communication ONE (17:46)
[2019-11-03] MEDS ORDERED: HydrALAZINE HCL 20 MG/ML VIAL IV STA (18:24)
[2019-11-03] MEDS ORDERED: METOPROLOL TARTRATE 1 MG/ML VIAL IV STA (20:41)
[2019-11-03] MEDS ORDERED: METOPROLOL TARTRATE 25 MG TAB PO STA (20:59)
[2019-11-04] MEDS: NSS + 20MEQ KCL 20 MEQ/1,000 ML BAG IV SCH ×2 (01:12→03:30)
[2019-11-04 03:34] VITALS: O2SAT 95
[2019-11-04] MEDS: PIPERACILLIN/TAZOBACTAM 3.375 GM in DEXTROSE 5% 100 ML IV SCH ×2 (05:33→11:43)
[2019-11-04 05:34] LABS: Basophils # (auto) 0.02 K/uL (0-0.2); Basophils % (auto) 0.2 %; Eosinophils # (auto) 0.21 K/uL (0-0.5); Hematocrit (blood only) 30.5 % (37-47); Hemoglobin 10.3 g/dL (12.0-16.0); Immature Granulocytes # (auto) 0.02 K/uL (0.00-0.02); Immature Granulocytes % (auto) 0.2 %; Lymphocytes # (auto) 1.32 K/uL (1.2-3.4); Lymphocytes % (auto) 12.9 %; Mean Corpuscular Hemoglobin 29.7 pg (25-34); Mean Corpuscular Hgb Conc 33.8 g/dL (32-36); Mean Corpuscular Volume 87.9 fL (80-100); Mean Platelet Volume 7.6 fL (7.4-10.4); Monocytes # (auto) 0.65 K/uL (0.11-0.59); Monocytes % (auto) 6.3 %; Neutrophils # (auto) 8.05 K/uL (1.4-6.5); Neutrophils % (auto) 78.4 %; Platelet Count 446 K/uL (130-400); RDW Coefficient of Variation 14.9 % (11.5-14.5); RDW Standard Deviation 47.7 fL (36.4-46.3); Red Blood Count 3.47 M/uL (4.2-5.4); White Blood Count 10.27 K/uL (4.8-10.8)
[2019-11-04 06:10] LABS: Albumin Level 2.6 gm/dl (3.4-5.0); BUN Creatinine Ratio 9.6 (10-20); Calcium 9.3 mg/dl (8.5-10.1); Creatinine Clr Calc Pharmacy 88.1 ml/min; Est GFR (African American) 115.2; Est GFR (Non-African American) 99.4; Magnesium 1.6 mg/dl (1.8-2.4); Phosphorus 3.4 mg/dl (2.5-4.9); Potassium 3.5 mmol/L (3.5-5.1)
[2019-11-04] MEDS: lisinopriL 40 MG TAB PO SCH (08:22)
[2019-11-04] MEDS: ONDANSETRON INJ 2 MG/ML 2 ML VIAL IV PRN (08:22)
[2019-11-04] MEDS: FAMOTIDINE 20 MG in SYRINGE 3 ML IV SCH (08:22)
[2019-11-04] MEDS: LIDOCAINE 5% 1 PATCH TD SCH (08:23)
[2019-11-04] MEDS: INSULIN ASPART 100 UNITS/ML 3 ML PEN SC SCH ×2 (08:28→12:23)
--- NOTE | 2019-11-04 08:53 | Surgery Progress Note ---
Date of Service November 04, 2019 Subjective POST OP NOTE: The surgery went very well. Oral care is good, swelling as expected. Tissue tone =healthy Reviewed oral care= and instructed on use. Sutures and packing removed. Reviewed diet, massage, exercise and continued home/oral care RTC ThursdayNovember 10 OK for D/C from oral surgery point of view Suggest oral antibiotic and pain Meds I will follow up with Leslie next week I stated the Discharge inst with specific Oral Surgery instructions Results & Data Vital Signs (Past 12 Hours) Vital Signs Temp Pulse Resp BP BP Pulse Ox 11/04/19 07:41 36.9 C 66 16 176/82 H 172/84 H 95 11/04/19 03:33 36.5 C 73 20 158/65 H 95 11/03/19 23:47 36.7 C 60 22 168/81 H 96 11/03/19 22:08 36.5 C 74 16 182/67 H 96 PG Care Time/CCT Total # of Minutes Spent Total Time Spent with Patient: Total time spent is greater than 50% in coordination of care (as documented) at patient's floor/unit and/or counseling patient: Coding Level of Care Code 45190 Subseq Hosp Care Lvl 1
--- NOTE | 2019-11-04 10:25 | Discharge Summary ---
Date of Service November 04, 2019 Admission HPI Per Admitting Provider The patient is a 63-year-old female with a past medical history including diabetes mellitus type 2, hypertension, strokelike symptoms, right eye 6th nerve palsy, hypomagnesemia, hyperlipidemia, malignant neoplasm of endometrium and anxiety. She was most recently admitted to [facility] from 10/23-10/28/2019 for strokelike symptoms, and a known dental abscess. She had had episode of severe emesis on 10/19, the development of slurred speech, difficulty with her balance and which led to a fall in her bathtub. She had been seen at [facility] emergency department with reported negative x-rays, and was discharged to home. Due to the recurrence of symptoms, she presented to [facility], and was admitted for strokelike symptoms. Her work-up at [facility] included a normal CT scan of brain, CTA head and neck, MRI of brain, and normal TSH, Lyme, B12 and folate testing. 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 CTA head neck did show several small dental abscesses that was advised to be addressed as an outpatient, and patient was to continue Augmentin on discharge. The patient represented to the ED this evening with the symptoms as noted above. CT of abdomen and pelvis showed right-sided 8, 9, 10 and 11th rib fractures, and a transverse process L1 fracture. There was also significant worsening of abdominal and pelvic lymphadenopathy Admission Exam Per Admitting Provider The patient is awake, alert and oriented 3, normocephalic and atraumatic, lying in bed and in no acute distress while laying still. HEENT--PERRL, EOMI, mucous membranes and oropharynx normal. Neck--supple. No JVD. No bruits. Thyroid normal, trachea midline, no adenopathy. Heart--normal S1 and S2. No murmurs, rubs or gallops. Lungs/chest wall--clear bilaterally, no respiratory distress, no accessory muscle use. Reproducible right-sided chest wall pain along ribs 8 through 11 laterally and posteriorly. Abdomen--normal bowel sounds and soft. Nontender. Nondistended. Extremities--no cyanosis or clubbing. No edema. Dermatologic--normal skin turgor, normal color, no abnormal lymph nodes, no rash. Neurologic--cranial nerves II through XII grossly intact. Rheumatologic--range of motion on right side limited due to pain Psychiatric--normal affect. Principal Diagnosis 2. Closed L1 vertebral fracture 3. Multiple rib fractures involving eighth, ninth, 10th, and 11th ribs 4. Type 2 diabetes mellitus 5. Hypertension 6. Hyperlipidemia Discharge Exam Constitutional cooperative; no acute distress Neck trachea midline, no thyromegaly Respiratory normal respiratory effort Auscultation: lungs clear to auscultation bilaterally; no crackles, no rales, no rhonchi and no wheezes Cardiovascular Rate/Rhythm: regular rate and regular rhythm Heart Sounds: normal S1 and normal S2 Gastrointestinal (Abdomen) Inspection/Auscultation: abdomen normal to inspection Percussion/Palpation: abdomen soft; abdomen nontender, no guarding, abdomen not rigid and no hepatosplenomegaly Skin no rashes, warm and dry Discharge Data Allergies Allergy/AdvReac Type Severity Reaction Status Date / Time Iodinated Contrast Media Allergy Severe Swelling Verified 11/01/19 16:47 [Iodinated Contrast- Oral of and IV Dye] Lip/Tongue/Throat loratadine [From Claritin] Allergy Severe Anaphylaxis Verified 11/01/19 16:47 codeine Allergy Intermediate Tachycardia Verified 11/01/19 16:47 adhesive AdvReac Intermediate Hives Verified 11/01/19 16:47 Consultations 11/01/19 19:57 ED Decision to Admit Stat 11/01/19 21:25 Consult Case Management - Discharge Planning Routine Procedures Performed Operation Date: 11/03/19 12:45 Actual Procedures p Incision and Drainage Removal of Cyst,(Not Applicable) - Shawn Lozoya DMD s Extraction of Tooth #10 and #30(Not Applicable) - Shawn Lozoya DMD Ordered Studies 11/01/19 16:01 CT abd pelvis wo con Stat 11/01/19 17:23 CT lumbar spine wo con Stat 11/01/19 17:35 CT face [CT facial bones wo con] Stat Hospital Course (1) Dental infection: Patient was initially started on IV Zosyn. Oral surgery was consulted. Patient underwent dental extraction of tooth #10 and tooth #30. Patient did well with this with no complications. Plan will be to discharge patient. We will convert her Zosyn over to oral Augmentin to finish 7-day course. I will also prescribe her oxycodone 5 mg, 10 tabs only. I do note that she has not required much in the way of pain meds and can use Tylenol as needed as well. She has a follow-up with on 11/10 to discuss postoperative culture results and further postoperative management. The nurse did discuss pain medication with the patient. She feels that Tylenol is effective and does not request anything stronger. At the patient does have a further dental pain, can call Dr. Lozoya at the number provided. (2) Closed L1 vertebral fracture: May apply Lidoderm patch over the site as needed as well, will discharge with a prescription of this. (3) Multiple rib fractures involving four or more ribs: Fractures involving posterior lateral 8, 9, 10 and 11th ribs- Apply Lidoderm patch to affected area per protocol. (4) DM type 2 (diabetes mellitus, type 2): Hold metformin. Placed on Accu-Cheks before meals and at bedtime/every 6 hours, with NovoLog coverage per per scale (5) HTN (hypertension): Blood pressure mildly elevated, lisinopril has been held this morning. We will continue to monitor once back on this medication. (6) Sixth nerve palsy of right eye: Reported due to diabetes mellitus, and should slowly improve over time. (7) Hyperlipidemia: Atorvastatin on hold for procedure in a.m. (8) Slurred speech: Improving, recent admission for same with full neuro work-up neg Seen by neurology on that admission who felt this could be stuttering due to anxiety (9) Abnormal CT of the abdomen: Noted for Moderate increase in abdominal and pelvic lymphadenopathy since CT of August 03, 2019 consistent with progression of kristy metastases. Will need addressed with heme/onc on d/c (10) DVT prophylaxis: SCDs given OR status Total Time Total Time Spent Total Time Spent (In Minutes): Time spent preparing discharge in excess of 30 minutes. Discharge Plan Discharge Items Patient Disposition: Home - Self-Care Reason For Visit: DENTAL INFECTION,MULTIPLE RIB FRACTURES Discharge Diagnosis: 1. dental infection of multiple teeth 2. Closed L1 vertebral fracture 3. Multiple rib fractures involving eighth, ninth, 10th, and 11th ribs 4. Type 2 diabetes mellitus 5. Hypertension 6. Hyperlipidemia Activity: Resume your previous activity Lifting: Gradually increase as tolerated Bathing: No limitations Non-emergency contact: Primary Care Provider and Surgeon Call non-emergency contact if: you have any medication questions, your wound has increased redness and your wound has increased drainage Follow-up/Referrals: Shawn Lozoya, DMD [Physician] - Caitlin Strong PA-C [Primary Care Provider] - Diet: Carb Consistent or DM2 Diet Texture: Easy to Chew Addtl Attending Provider Instructions: ADDITIONAL ACTIVITY RECOMMENDATIONS: * Couch teeth after every meal. It is very important to keep your mouth clean to prevent infection. SPECIAL CARE INSTRUCTIONS: * apply heat (hot water bottle or heating pad) for the next two days, as often as possible. * Tomorrow start rinsing your mouth with 1/2 teaspoon salt in 8 ounces warm water. This rinse should be used every 4-6 hours. * You may experience slight nausea. To prevent this, never take your medication on an empty stomach. If nauseated, take small sips of sharla teresa until you feel better; then you may start on applesauce and toast. * Some swelling is common. It should gradually decrease within 4-5 days. * A certain amount of bleeding is to be expected. It is often possible to control mild oozing by placing folded gauze over the area and biting down for 30 minutes. If you are unable to control excessive bleeding, call Dr. Lozoya [phone] * You may experience some discomfort for a few days. If pain or swelling increases, call your doctor Pending Studies at Discharge: Yes Studies:: Results of tissue removed from the upper/lower jaw cyst Stand-Alone Forms: My [facility], Smoking Cessation Medications and DC Order Prescriptions: New lidocaine 5 % Adhesive Patch,Medicated 1 patch transdermal QAM Qty: 30 RF: 0 amoxicillin-pot clavulanate [Augmentin] 875-125 mg tablet 1 tab PO Q12H Qty: 14 RF: 0 Continued atorvastatin 10 mg Tablet 10 mg PO HS RF: 0 metformin [Glucophage] 1,000 mg Tablet 1,000 mg PO BID RF: 0 ipratropium-albuterol 0.5 mg-3 mg(2.5 mg base)/3 mL solution for nebulization 3 ml NEB Q4H PRN (Reason: Shortness Of Breath Or Wheezing) RF: 0 diphenhydramine HCl [Benadryl] 25 mg Capsule 25 mg PO Q6H PRN (Reason: Allergy Symptoms) RF: 0 docusate sodium [Colace] 100 mg Capsule 100 mg PO BID PRN (Reason: Constipation) RF: 0 chlorpheniramine maleate [ChlorTabs] 4 mg tablet 4 mg PO Q6H PRN (Reason: Allergy Symptoms) RF: 0 lorazepam 0.5 mg tablet 0.5 mg PO TID PRN (Reason: Anxiety) RF: 0 lisinopril 40 mg tablet 40 mg PO DAILY Qty: 30 RF: 0 meclizine 25 mg tablet 25 mg PO Q6H PRN (Reason: Dizziness) RF: 0 sodium chloride [Saline Mist] 0.65 % aerosol,spray 2 sprays intranasal QID PRN (Reason: Dry Nasal Passages) RF: 0 Discontinued amoxicillin-pot clavulanate 875-125 mg tablet 1 tab PO BID RF: 0 Discharge Orders: Discharge Order (Routine); Ordered 11/04/19 Ordered By: Lei Pinto Admission Data Admit Date/Time: 11/03/19 13:17 Attending Provider: Lei Pinto Admit Provider: Pino Marinelli Primary Care Provider: Caitlin Strong Other Providers: [facility],Home [facility] ; Pino Marinelli Coding Level of Care Code D/C Day Management >30 mins Diagnoses Dental infection K04.7 Closed L1 vertebral fracture S32.019A Multiple rib fractures involving four or more ribs S22.49XA DM type 2 (diabetes mellitus, type 2) E11.9 HTN (hypertension) I10 Hypertension type: essential hypertension Sixth nerve palsy of right eye H49.21 Hyperlipidemia E78.5 Slurred speech R47.[address] of the abdomen R93.5 DVT prophylaxis Z29.9
[2019-11-04 11:41] VITALS: PULSE 72; TEMP 98.1
[2019-11-04 12:49] VITALS: BP 172/84
--- NOTE | 2019-11-07 00:44 | Operative Report (OR) ---
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 POSTOPERATIVE DIAGNOSES: Acute facial infection with purulent drainage from fistula of the mouth into oral cavity as well as a fractured and decayed tooth with a corresponding abscessed lower right side tooth #30. OPERATION: Removal of tooth #10 and removal of a 1 cm infected cystic lesion (1.2 cm) of the anterior maxilla with closure of fistula from a defect on the palate and removal of fractured tooth #30 with excision of a cystic lesion. BRIEF HISTORY: Leslie is a 63-year-old white female who was admitted to [facility] approximately 5 days ago. At that time, she was admitted because of stroke-like symptoms. 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 The patient's son called me on Thursday, 10/31, requesting an appointment, which one was given. However, on , 11/02, the patient was in so much pain and discomfort that she was brought back via ambulance to the Emergency Room where she was evaluated and admitted. At this time, CT scan was taken and showed that the patient had some rib fractures ( due to a recent fall) as well as a 1 cm like cyst in the anterior portion of her maxilla. The patient's chief complaint besides the pain was chronic drainage and a bad taste. 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 She told me that a few weeks ago her upper left face and lip were very swollen. Given the fact that the patient has failed outpatient therapy and the fact that it was during the Covid-19 pandemic and the patient's dentist was not taking any patients at this time emergency care was medically necessary . The dentist placed the patient on 2 rounds of antibiotics, which were ineffective. I discussed the case with the hospitalist and the anesthesia department, and it was my opinion that we needed to get this done to avoid the chronic infection developing and causing further damage or making a fistula into the palate larger. This indeed was an urgent case, and given the patient's symptoms and need for a return to the Emergency Room, I felt justified to take this patient down to the operating room and under general anesthesia do the definitive surgery. OPERATION IN DETAIL: After this patient was cleared to undergo this urgent procedure, she was brought down to the operating room and placed under general anesthesia via an orotracheal intubation. After the tube was secured appropriately and the patient's head was appropriately positioned, we then began the procedure. Prior to doing this, a time-out was taken and we identified the patient as Leslie Lucio, and we noted that her antibiotics were appropriately given, and that the instrument and sponge count was correct, and all preoperative diagnostic consultations were in the chart. It was at this time the operation began. Initially, I gave local anesthesia in the form of a Marcaine anesthetic nerve block to the lower right inferior alveolar nerve. I then gave injections of the local anesthesia to the anterior maxilla and the palate. In giving the injections, it was obvious that pus started to extrude from the fistula that communicated from the roof of the mouth into the 1 cm cyst area. At this time, I turned my attention to the lower right side. Prior to doing this, an oropharyngeal throat pack was placed. The oral cavity was irrigated and suctioned dried with Peridex. I turned my attention first to remove tooth #30. This tooth was grossly fractured and very sharp. It was causing extensive trauma to the oral mucosa. The patient's cheek was literally abraded from this rough area. There was a large subperiosteal infection in this area. With the use of a 15 blade, an incision was made from the retromolar pad around the tooth #31, around tooth #30 and around tooth #29. The periosteal elevator was used to reflect the mucoperiosteal tissue. In doing so, I was able to get a very nice area of exposure. It was noted that there was gross granulation tissue in the subperiosteal area. I now removed the tooth with dental forceps. At this time, there was an extensive amount of bone breakdown, and with the use of curettes, I was able to remove a lot of the chronically inflamed tissue in the area. Once this was done, I smoothed down the area with a dental file, irrigated the area and sutured the area closed with the use of a 2-0 chromic suture. At this time, bleeding and hemostasis was in control. A .75 cystic mass was removed from the area and send for pathology. I now turned my attention to the maxilla. Once again with the use of a 15 blade, the incision was created around the necks of teeth #11 and #12, around #10 and around #8 and #9. This large mucoperiosteal flap was reflected to expose the anterior maxilla. As expected, there was dehiscence of the bone in this area where the cyst was started to break through the alveolar plate. Tooth #10 was easily removed. The bone was quite necrotic in this area. With the use of curettes, I was able to carefully remove all of the cystic remnants a large defect over 1.5 cm was left on the palate. I did notice that there was a communication both from the palate as well as the facial area. The palatal fistula was easily repaired by using a 15 blade and coring the fistula by reflecting the mucoperiosteal tissue, I was able to place a 2-0 chromic suture in a hammock fashion and was able to suture the fistula. The fistula on the facial area was a little larger and this required some freeing of the periosteal tissue to gain better closure of the area. I placed a few sutures in the mucoperiosteal tissue where the fistula was and this closed the fistula. With the tissues being relaxed, I was now able to gain a very nice closure of the defect. When all was said and done, we had a very large defect of the area. Given the uncertainty of the area and the fact that there was a lot of pus and inflammatory tissue, I did not feel comfortable placing any type of a bone graft. I irrigated the area with normal saline. I then cleansed the area and curetted the area again until all areas were devoid cystic material. I then used 1/4 inch Chris drain, impregnated with an antibiotic ointment and placed it into the defect. Approximately 5 inches of material was used to pack the defect. I then sutured the drain into position. At this time, all hemostasis was in control. The lower right side was well sutured without any bleeding. The packing was placed. At this time, the operation was complete. I then removed the oropharyngeal throat pack and irrigated and suctioned dry the nasopharyngeal area. At this time, I informed the anesthesia department that we were completed. At this time, the patient was then turned over to the anesthesia department and using all the new protocols to lessen viral spread were then undertaken prior to transporting the patient to the recovery room. The patient was transported to the recovery room after the anesthesia department felt that the protocol was met and she was doing quite well in the recovery room. I did see Mrs. Lucio the next morning and she reported that her pain was well controlled. She had no drainage, she felt that she was not having the foul drainage in her mouth that she did have previously. At this time, I informed her that we will be sending her home today. We will keep her on antibiotics and pain medication and I will see her in my office in approximately 1 week. did remove the packing as it was bothering her and after the packing was removed The report from the pathology department is pending: Overall, Mrs. Lucio was able to be discharged. She tolerated her surgical procedures quite well and I anticipate an uneventful recovery. I attest to the content of the Intraoperative Record and any orders documented therein. Any exceptions are noted below. ADRIENNE
== END 2019-11-04 13:24 | disposition home health service (06) | DRG 158 ==
LOC: ED 15:28 → 3E 15:28 → SUATTDRO 20:34 → 3E 21:08